=== PATIENT | male | born 1940 | race Caucasian/White ===

== ENCOUNTER 2021-01-02 11:06 | Inpatient (IN) | payer MEDICARE, OTHER ==
--- NOTE | 2021-01-02 11:47 | ED ---
General Adult HPI - General Chief complaint: GI Bleed Stated complaint: GI Bleed, transfer from [place] Time Seen by Provider: 01/02/21 11:10 Source: patient, EMS, RN notes reviewed, old records reviewed Limitations: no limitations - History of Present Illness Initial comments: This is an 80-year-old male who was transferred to us from [facility]. They were concerned because the patient had black stools that were guaiac positive. Patient also according to the staff there looked pale and was somewhat tachycardic just over 100 beats a minute. Pressure was stable. Patient's hemoglobin was 11.9 and they gave the patient 1 unit of packed red blood cells. I went in the room to interview the patient he states he had episode of black stool yesterday and currently has no complaints per patient denies abdominal pain per patient denies shortness of breath or difficulty breathing. Patient has lightheadedness or dizziness. - Related Data Home Medications Medication Instructions Recorded Confirmed Albuterol Inhaler (Mhu) [Ventolin 2 puff INHALATION RT-Q4H PRN 11/28/15 11/28/15 Hfa Inhaler (Mhu)] Aspirin EC [Ecotrin] 325 mg PO QAM 11/28/15 11/28/15 Insulin Detemir [Levemir Flextouch 17 units SQ HS 11/28/15 11/28/15 Pen] Multivitamins, Thera [Multivitamin 1 tab PO DAILY 11/28/15 11/28/15 (formulary)] Nortriptyline HCl [Pamelor] 75 mg PO HS 11/28/15 11/28/15 Potassium Chloride ER [K-Dur 20] 20 mg PO DAILY@1200 11/28/15 11/28/15 Pravastatin Sodium [Pravachol] 40 mg PO HS 11/28/15 11/28/15 Tamsulosin HCl [Flomax] 0.4 mg PO HS 11/28/15 11/28/15 Vitamin B Complex 1 cap PO QAM 11/28/15 11/28/15 Previous Rx's Medication Instructions Recorded Amoxic-Pot Clav 875-125Mg 1 tab PO Q12HR #14 tablet 12/12/15 [Augmentin 875-125] Bicalutamide [Casodex] 50 mg PO DAILY@1200 tab 12/12/15 Budesonide-Formot 160-4.5 Mcg 2 puff INHALATION BID #1 inhaler 12/12/15 [Symbicort 160-4.5 Mcg Inhaler] Folic Acid 1 mg PO DAILY@1200 tab 12/12/15 INSULIN LISPRO (HumaLOG) [humaLOG] 0 unit SQ ACHS #1 vial 12/12/15 Insulin Detemir (Levemir) [Levemir] 10 unit SQ HS vial 12/12/15 Ipratropium-Albuterol Nebulize 3 ml IH RT-TID ampul.neb 12/12/15 [Duoneb 0.5 mg-3 mg/3 ml Soln] Melatonin 5 mg PO HS PRN #1 tablet 12/12/15 Metoprolol Tartrate [Lopressor] 25 mg PO BID tab 12/12/15 Multivitamins, Thera [Multivitamin 1 each PO DAILY@1200 tab 12/12/15 (formulary)] Pantoprazole [Protonix] 40 mg PO BID-W/MEALS tablet. 12/12/15 Pravastatin Sodium [Pravachol] 40 mg PO HS tab 12/12/15 Thiamine [Vitamin B-1] 100 mg PO DAILY@1200 tab 12/12/15 traMADol HCL [Ultram] 50 mg PO Q6HR PRN #20 tab 12/12/15 Allergies Allergy/AdvReac Type Severity Reaction Status Date / Time No Known Allergies Allergy Verified 01/02/21 11:17 Review of Systems ROS Statement: Those systems with pertinent positive or pertinent negative responses have been documented in the HPI. ROS Other: All systems not noted in ROS Statement are negative. Past Medical History Past Medical History: Coronary Artery Disease (CAD), Cancer, Chest Pain / Angina, COPD, Diabetes Mellitus, GERD/Reflux, Hyperlipidemia, Hypertension, Pneumonia Additional Past Medical History / Comment(s): came from [facility]- (rectal bleeding) and uti. kidney stone in past,constipation, arthritis in back, anemia,prostate cancer, hands shake at times, head inj/brain bleed 2016-no sx was needed. 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 Patient is nontoxic and well- hydrated and is in no acute distress. ENT: Neck is soft and supple. No significant lymphadenopathy is noted. Oropharynx is clear. Moist mucous membranes. Neck has full range of motion without eliciting any pain. EYES: The sclera were anicteric and conjunctiva were pink and moist. Extraocular movements were intact and pupils were equal round and reactive to light. Eyelids were unremarkable. PULMONARY: Unlabored respirations. Good breath sounds bilaterally. No audible rales rhonchi or wheezing was noted. CARDIOVASCULAR: There is a regular rate and rhythm without any murmurs gallops or rubs. ABDOMEN: Soft and nontender with normal bowel sounds. SKIN: Skin is clear with no lesions or rashes and otherwise unremarkable. NEUROLOGIC: Patient is alert and oriented x3. Cranial nerves II through XII are grossly intact. Motor and sensory are also intact. Normal speech, volume and content. Symmetrical smile. MUSCULOSKELETAL: Normal extremities with adequate strength and full range of motion. No lower extremity swelling or edema. No calf tenderness. LYMPHATICS: No significant lymphadenopathy is noted PSYCHIATRIC: Normal psychiatric evaluation. Limitations: no limitations Course Vital Signs 01/02/21 11:11 Temperature 98.5 F Pulse Rate 105 H Respiratory 18 Rate Blood Pressure 126/84 O2 Sat by Pulse 99 Oximetry Disposition Clinical Impression: GI bleed Disposition: ADMITTED IP TO THIS HOSP Referrals: Rolando Zafar MD [Primary Care Provider] - 1-2 days Time of Disposition: 11:47
[2021-01-02] MEDS ORDERED: SODIUM CHLORIDE 0.9% 1,000 ML IV ONE (12:01)
[2021-01-02 12:10] LABS: Basophils # (A) 0.1 k/uL (0-0.2); Basophils % (A) 0 %; Eosinophils # (A) 0.3 k/uL (0-0.7); Eosinophils % (A) 2 %; HCT 39.9 % (39.0-53.0); HGB 12.9 gm/dL (13.0-17.5); Lymphocytes # (A) 2.8 k/uL (1.0-4.8); Lymphocytes % (A) 19 %; MCH 29.4 pg (25.0-35.0); MCHC 32.2 g/dL (31.0-37.0); MCV 91.2 fL (80.0-100.0); Mean Platelet Volume 7.9; Monocytes # (A) 0.6 k/uL (0-1.0); Monocytes % (A) 4 %; Neutrophils # (A) 10.8 k/uL (1.3-7.7); Neutrophils % (A) 73 %; Platelet Count 273 k/uL (150-450); RBC 4.38 m/uL (4.30-5.90); RDW 13.9 % (11.5-15.5); WBC 14.7 k/uL (3.8-10.6)
--- NOTE | 2021-01-02 12:17 | XR ---
EXAMINATION TYPE: XR KUB DATE OF EXAM: 01/02/2021 Comparison: None Clinical History: 80-year-old male with diarrhea, Possible obstruction Findings: Degenerated extra convex scoliosis. Some scattered colonic air is present extending distally to the r ectum. Small bowel loops in the right side of the abdomen are borderline distended up to 3.0 cm. No e vidence for free intraperitoneal air. Impression: A few borderline dilated small bowel loops in the right side of the abdomen measuring up to 3.0 cm. C olonic air is present at this time. Findings are nonspecific and could represent a regional ileus/ent eritis or early small bowel obstruction. Follow-up as clinically indicated.
--- NOTE | 2021-01-02 17:21 | XR ---
EXAMINATION TYPE: XR chest 1V DATE OF EXAM: 01/02/2021 COMPARISON: 12/09/2015 HISTORY: 80-year-old male with coughing TECHNIQUE: Single frontal view of the chest is obtained. FINDINGS: Leftward patient rotation. Heart upper limits of normal in size. Some patchy peripheral left basilar opacity. Right lung and pleural space are clear. IMPRESSION: Limited, rotated exam. There is some patchy peripheral left basilar atelectasis versus early infiltra te.
[2021-01-02 18:05] LABS: Glucose,Whole Blood 138 mg/dL (75-99)
[2021-01-02 18:07] LABS: Appearance,Urine Clear (Clear); Bilirubin,Urine Negative (Negative); Blood,Urine Negative (Negative); Color,Urine Yellow; Glucose,Urine (UA) Negative (Negative); Ketones,Urine Negative (Negative); Leukocyte Esterase,Urine Negative (Negative); Nitrite,Urine Negative (Negative); PH, Urine 6.5 (5.0-8.0); Protein,Urine Negative (Negative); Specific Gravity,Urine 1.017 (1.001-1.035); Urobilinogen,Urine <2.0 mg/dL (<2.0)
[2021-01-02 18:11] LABS: Basophils # (A) 0.1 k/uL (0-0.2); Basophils % (A) 0 %; Eosinophils # (A) 0.6 k/uL (0-0.7); Eosinophils % (A) 5 %; HCT 35.4 % (39.0-53.0); HGB 11.7 gm/dL (13.0-17.5); Hypochromasia Moderate; Lymphocytes # (A) 2.8 k/uL (1.0-4.8); Lymphocytes % (A) 22 %; MCH 30.8 pg (25.0-35.0); MCHC 32.9 g/dL (31.0-37.0); MCV 93.6 fL (80.0-100.0); Mean Platelet Volume 7.1; Monocytes # (A) 0.5 k/uL (0-1.0); Monocytes % (A) 4 %; Neutrophils # (A) 8.1 k/uL (1.3-7.7); Neutrophils % (A) 65 %; Platelet Count 246 k/uL (150-450); RBC 3.79 m/uL (4.30-5.90); RDW 13.9 % (11.5-15.5); WBC 12.4 k/uL (3.8-10.6)
[2021-01-02] MEDS ORDERED: ALBUTEROL NEBULIZED 2.5 MG/3 ML INHALATION PRN (19:59)
[2021-01-02] MEDS ORDERED: MORPHINE SULFATE 2 MG/ML SYRINGE IVP PRN (19:59)
[2021-01-02] MEDS ORDERED: hydrALAZINE HCL 20 MG/ML 1 ML VIAL IVP PRN (20:00)
--- NOTE | 2021-01-02 20:10 | P.HPIM ---
History of Present Illness This is a pleasant 80 years old male with past medical history of coronary artery disease, status post stent, diabetes mellitus, hypertension, hyperlipidemia, prostate cancer. Patient was sent from [facility] for GI bleed. Patient woke up 3:00 this morning with diarrhea.It was liquid stool black with some fresh blood in it associated with generalized weakness and difficulty walking due to his weakness but no abdominal pain, no vomiting, no chest pain or dyspnea. He is also complaining from cough and some of phlegm No headache or weakness or numbness. Smoking, occasional alcohol, no illicit drugs. Patient no suicidal ideation. Vital signs stable, tachycardic with heart rate 100-105. WBC is elevated at 14.7 In the emergency room he was started on normal saline at 75 mL/h On reviewing the records from [facility] Elevated WBC at 17 K, and hemoglobin is 11.9, platelet normal at 302. Sodium normal At 137, normal potassium at 4.7, normal creatinine 0.8 and elevated glucose at 259 Lactic acid elevated at 2.5, troponin negative less than 0.02. Occult blood in stool was positive. Liver enzymes AST and ALT were normal at 2119 respectively. Bilirubin is normal at 0.6 and normal INR at 1.04. Review of Systems CONSTITUTIONAL: No fever, no malaise, no fatigue. HEENT: No recent visual problems or hearing problems. Denied any sore throat. CARDIOVASCULAR: No orthopnea, PND, no palpitations, no syncope. PULMONARY: No shortness of breath, no hemoptysis. GASTROINTESTINAL: no nausea, no vomiting, no abdominal pain. Normoactive bowel sounds. NEUROLOGICAL: No headaches, no weakness, no numbness. HEMATOLOGICAL: Denies any bleeding or petechiae. GENITOURINARY: Denies any burning micturition, frequency, or urgency. MUSCULOSKELETAL/RHEUMATOLOGICAL: Denies any joint pain, swelling, or any muscle pain. ENDOCRINE: Denies any polyuria or polydipsia. Past Medical History Past Medical History: Coronary Artery Disease (CAD), Cancer, Chest Pain / Angina, COPD, Diabetes Mellitus, GERD/Reflux, Hyperlipidemia, Hypertension, Pneumonia Additional Past Medical History / Comment(s): came from [facility]- (rectal bleeding) and uti. kidney stone in past,constipation, arthritis in back, anemia,prostate cancer, hands shake at times, head inj/brain bleed 2016-no sx was needed. 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 Past Anesthesia/Blood Transfusion Reactions: No Reported Reaction Date of Last Stent Placement:: unk Past Psychological History: Depression Past Alcohol Use History: None Reported Past Drug Use History: None Reported - Past Family History Father Family Medical History: Cancer Mother Family Medical History: Myocardial Infarction ([place]) Medications and Allergies Home Medications Medication Instructions Recorded Confirmed Type Tamsulosin HCl [Flomax] 0.4 mg PO DAILY 11/28/15 01/02/21 History Albuterol Nebulized [Ventolin 2.5 mg INHALATION RT-Q4H PRN 01/02/21 01/02/21 History Nebulized] Aspirin EC [Ecotrin Low Dose] 81 mg PO HS 01/02/21 01/02/21 History Brimonidine Tartrate/Timolol 1 drop LEFT EYE BID 01/02/21 01/02/21 History [Combigan 0.2%-0.5% Eye Drops] DULoxetine HCL [Cymbalta] 60 mg PO DAILY 01/02/21 01/02/21 History Docusate [Colace] 100 mg PO DAILY PRN 01/02/21 01/02/21 History Insulin Glargine,Hum.rec.anlog 10 unit SQ DAILY 01/02/21 01/02/21 History [Lantus Solostar Pen] Insulin Regular, Human [NovoLIN R] See Protocol SQ AC-TID PRN 01/02/21 01/02/21 History Losartan [Cozaar] 50 mg PO DAILY 01/02/21 01/02/21 History Meloxicam [Mobic] 15 mg PO DAILY 01/02/21 01/02/21 History Metoprolol Tartrate [Lopressor] 25 mg PO DAILY 01/02/21 01/02/21 History Multivitamins, Thera [Multivitamin 1 tab PO HS 01/02/21 01/02/21 History (formulary)] Oxybutynin Chloride [Oxybutynin 10 mg PO BID 01/02/21 01/02/21 History Chloride ER] Pravastatin Sodium [Pravachol] 40 mg PO DAILY 01/02/21 01/02/21 History Allergies Allergy/AdvReac Type Severity Reaction Status Date / Time No Known Allergies Allergy Verified 01/02/21 12:48 Physical Exam Vitals: Vital Signs Temp Pulse Resp BP Pulse Ox 01/02/21 13:59 100 18 119/79 96 01/02/21 11:11 98.5 F 105 H 18 126/84 99 Intake and Output 01/01/21 01/02/21 01/02/21 22:59 06:59 14:59 Other: Weight 88.451 kg -GENERAL: The patient is alert and oriented x3, not in any acute distress. Obese HEENT: Pupils are round and equally reacting to light. EOMI. No scleral icterus. No conjunctival pallor. Normocephalic, atraumatic. No pharyngeal erythema. No thyromegaly. CARDIOVASCULAR: S1 and S2 present. No murmurs, rubs, or gallops. PULMONARY: Chest is clear to auscultation, no wheezing or crackles. ABDOMEN: Soft, nontender, nondistended, normoactive bowel sounds. No palpable organomegaly. MUSCULOSKELETAL: No joint swelling or deformity. EXTREMITIES: No cyanosis, clubbing, or pedal edema. NEUROLOGICAL: Gross neurological examination did not reveal any focal deficits. SKIN: No rashes. No petechiae Results CBC & Chem 7: 01/02/21 17:51 Labs: Abnormal Lab Results - Last 24 Hours (Table) 01/02/21 Range/Units 12:01 WBC 14.7 H (3.8-10.6) k/uL Hgb 12.9 L (13.0-17.5) gm/dL Neutrophils # 10.8 H (1.3-7.7) k/uL Assessment and Plan Assessment: Acute bleeding per rectum Diarrhea with no abdominal pain Mild anemia Possible enteritis versus bowel obstruction Possible left lower lobe pneumonia Possible acute urinary tract infection Diabetes mellitus Hypertension Hyperlipidemia Prostatic cancer Plan: this is a pleasant 80 years old male was sent from [facility] for possible GI bleed and UTI We'll do anemia workup GI team consult follow-up Check pro-calcitonin and start Augmentin empirically Check hemoglobin A1c Order chest x-ray Recheck urinalysis and urine culture Labs and medication were reviewed.. Continue same treatment. Continue with symptomatic treatment. Resume home medication. Monitor lytes and vitals. DVT and GI prophylaxis. Further recommendations depends on the clinical course of the patient DVT prophylaxis: no Subcutaneous heparin for possible GI bleed GI Prophylaxis: Ppi PT/OT: Prognosis is guarded Addendum: Chest x-ray came back showing atelectasis versus early left lower lobe infiltrate KUB came back showing ileitis/enteritis versus bowel obstruction and no free air Consults surgery service Continue with bowel rest, D5 normal saline at 75 mL/h, Zosyn, morphine as needed and surgical team consult Order blood culture and sputum culture. Discussed with staff
[2021-01-02] MEDS ORDERED: cloNIDine 0.1 MG/24HR PATCH TRANSDERM SCH (20:30)
[2021-01-02 20:38] LABS: Glucose,Whole Blood 199 mg/dL (75-99)
[2021-01-02 21:00] LABS: African American GFR (CKD) >90 (>60 ml/min/1.73 sqM); Anion Gap 10 mmol/L; Blood Urea Nitrogen 22 mg/dL (9-20); Calcium 9.1 mg/dL (8.4-10.2); Carbon Dioxide 21 mmol/L (22-30); Chloride 105 mmol/L (98-107); Glucose 194 mg/dL (74-99); Non-African American GFR(CKD) 87 (>60 ml/min/1.73 sqM); Potassium 4.2 mmol/L (3.5-5.1); Sodium 136 mmol/L (137-145)
[2021-01-02] MEDS ORDERED: AMOXIC-POT CLAV 875-125MG 1 EACH TAB PO SCH (21:00)
[2021-01-02] MEDS: INSULIN ASPART (NovoLOG) 100 UNIT/ML VIAL SQ SCH (21:55)
[2021-01-02] MEDS: PANTOPRAZOLE 40 MG/10 ML VIAL IVP SCH (21:58)
[2021-01-02] MEDS: DEXTROSE 5%-0.9% NACL 1,000 ML IV SCH (21:59)
[2021-01-02] MEDS: PIPERACILLIN-TAZOBACTAM 3.375 GM in SODIUM CHLORIDE 0.9% 100 ML IVPB SCH (21:59)
[2021-01-02] MEDS ORDERED: SODIUM CHLORIDE 0.9% 500 ML 500 ML IV ONE (22:33)
[2021-01-03] MEDS: PIPERACILLIN-TAZOBACTAM 3.375 GM in SODIUM CHLORIDE 0.9% 100 ML IVPB SCH ×3 (04:27→21:00)
[2021-01-03 06:54] LABS: Glucose,Whole Blood 150 mg/dL (75-99)
[2021-01-03] MEDS: PANTOPRAZOLE 40 MG/10 ML VIAL IVP SCH ×2 (07:41→21:02)
[2021-01-03] MEDS: INSULIN ASPART (NovoLOG) 100 UNIT/ML VIAL SQ SCH ×4 (07:41→21:01)
[2021-01-03] MEDS: IOPAMIDOL CONTRAST (ORAL USE) VIAL PO PRN ×2 (09:21→10:24)
[2021-01-03 10:56] LABS: Basophils # (A) 0.06 X 10*3/uL (0.00-0.10); Basophils % (A) 0.5 %; Eosinophils # (A) 0.96 X 10*3/uL (0.04-0.35); Eosinophils % (A) 8.2 %; HCT 33.1 % (39.6-50.0); HGB 10.5 g/dL (13.0-17.0); Lymphocytes # (A) 3.88 X 10*3/uL (0.90-5.00); Lymphocytes % (A) 33.3 %; MCH 28.7 pg (27.0-32.0); MCHC 31.7 g/dL (32.0-37.0); MCV 90.4 fL (80.0-97.0); Mean Platelet Volume 10.7 fL (9.5-12.2); Neutrophils # (A) 6.01 X 10*3/uL (1.80-7.70); Neutrophils % (A) 51.7 %; Platelet Count 233 X 10*3/uL (140-440); RBC 3.66 X 10*6/uL (4.40-5.60); RDW 13.6 % (11.5-14.5); WBC 11.64 X 10*3/uL (4.50-10.00)
--- NOTE | 2021-01-03 11:29 | CT ---
EXAMINATION TYPE: CT abdomen pelvis w con DATE OF EXAM: 01/03/2021 COMPARISON: 727 HISTORY: Generalized pain. CT DLP: 1440.1 mGycm CONTRAST: CT scan of the abdomen and pelvis is performed with Oral Contrast and with IV Contrast, patient injec brian with 100 mL of Isovue 370. FINDINGS: LUNG BASES-: No visible nodule. No infiltrate. LIVER/GB: No calcified gallstones. Mild hepatic steatosis. No space occupying hepatic lesion. Bili robert tree is of normal caliber. PANCREAS: No inflammation. No distinct mass. SPLEEN: No splenic enlargement. No lesion seen. ADRENALS: No nodule. No thickening. KIDNEYS/BLADDER: No hydronephrosis. No nephrolithiasis. No distinct renal mass. Urinary bladder g rossly unremarkable. BOWEL: Normal appendix. Normal bowel caliber. No inflammation. GENITAL ORGANS: No gross abnormality. LYMPH NODES: No greater than 1cm abdominal or pelvic lymph nodes are appreciated. AORTA: No significant abnormality. OSSEOUS STRUCTURES: No significant abnormality is seen. OTHER: Fat-containing umbilical hernia. IMPRESSION: 1. No evidence for bowel obstruction or inflammatory process.
[2021-01-03 11:42] LABS: Glucose,Whole Blood 168 mg/dL (75-99)
[2021-01-03 12:56] LABS: African American GFR (CKD) 93.2 (60.0-200.0); Albumin 3.9 g/dL (3.80-4.90); Albumin/Globulin Ratio 2.29 (1.60-3.17); Anion Gap 9.9 mmol/L (4.00-12.00); BUN/Creat Ratio 21.11 Ratio (12.00-20.00); Bilirubin, Conjugated 0.2 mg/dL (0.20-0.40); Bilirubin,Unconjugated 0.3 mg/dL; Calcium 8.5 mg/dL (8.7-10.3); Carbon Dioxide 21.1 mmol/L (21.6-31.8); Globulin 1.7 g/dL (1.6-3.3); Magnesium 1.9 mg/dL (1.5-2.4); Non-African American GFR(CKD) 80.4 (60.0-200.0); Potassium 3.9 mmol/L (3.5-5.5); Total Bilirubin 0.5 mg/dL (0.2-1.2); Total Protein 5.6 g/dL (6.2-8.2)
--- NOTE | 2021-01-03 13:02 | P.GSCN ---
History of Present Illness Consult date: 01/03/21 History of present illness: CHIEF COMPLAINT: GI bleed HISTORY OF PRESENT ILLNESS: This is a 80-year-old male with a known history of a left colon mass status post left colectomy in 2016. 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 Patient also has a history of coronary artery disease with cardiac stents, diabetes mellitus, COPD and prostate cancer. Surgical history also includes appendectomy. Patient was a transfer from [facility] due to GI bleed. Patient had been having black stools and guaiac was positive. According to chart patient had had been looking pale and somewhat tachycardic with a heart rate of 100. Hemoglobin was 11.9 he did receive a unit of blood at [facility]. Patient is still having black stools. They black with a mix of bright red per nursing staff. Patient denies any abdominal pain. He is also being seen by GI service and they're planning endoscopies tomorrow. Patient has been taking Mobic. He had a KUB U x-ray that had shown a few borderline dilated small bowel loops in the right side of the abdomen measuring up to 3 cm. Colonic air is present at this time. There is no evidence for free intraperitoneal air. Findings are nonspecific and could represent ileus, enteritis or early small bowel obstruction. Computed tomography scan abdomen and pelvis completed showing no evidence for bowel obstruction or inflammatory process. Patient is been started on clear liquid diet. He denies any nausea or vomiting. Denies any fever chills or sweats. Surgical service was consult in for possible small bowel obstruction PAST MEDICAL HISTORY: See list. PAST SURGICAL HISTORY: See list. MEDICATIONS: See list. ALLERGIES: See list. SOCIAL HISTORY: No illicit drug use. REVIEW OF SYSTEMS: CONSTITUTIONAL: Denies fever or chills. HEENT: Denies blurred vision, vision changes, or eye pain. Denies hemoptysis CARDIOVASCULAR: Denies chest pain or pressure. RESPIRATORY: No shortness of breath. GASTROINTESTINAL: See HPI for pertinent findings HEMATOLOGIC: Denies bleeding disorders. GENITOURINARY: Denies any blood in urine or increased urinary frequency. SKIN: Denies pruitis. Denies rash. PHYSICAL EXAM: VITAL SIGNS: Reviewed GENERAL: Well-developed in no acute distress. HEENT: No sclera icterus. Extraocular movements grossly intact. Moist buccal mucosa. Head is atraumatic, normocephalic. No nasal drainage. ABDOMEN: Soft. Nondistended. Nontender NEUROLOGIC: Alert and oriented. Cranial nerves II through XII grossly intact. LABORATORY DATA: WBC 12.4 down to 11.64 hemoglobin 11.7 down to 10.5 Lactic 2.8 and 1.2 creatinine 0.74 sodium 140 potassium 3.9 magnesium 1.9 UA negative IMAGING: Computed tomography scan abdomen and pelvis completed showing no evidence for bowel obstruction or inflammatory process. ASSESSMENT: 1. Acute GI bleed with daily NSAID use. 2. Possible ileus, enteritis or early small bowel obstruction on x-ray. This has been ruled out. 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 Signing provider agrees with the documented findings, assessment, and plan of care. Past Medical History Past Medical History: Coronary Artery Disease (CAD), Cancer, Chest Pain / Angina, COPD, Diabetes Mellitus, GERD/Reflux, Hyperlipidemia, Hypertension, Pneumonia Additional Past Medical History / Comment(s): came from [facility]- (rectal bleeding) and uti. kidney stone in past,constipation, arthritis in back, anemia,prostate cancer, hands shake at times, head inj/brain bleed 2016-no sx was needed. 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 Past Anesthesia/Blood Transfusion Reactions: No Reported Reaction Date of Last Stent Placement:: unk Past Psychological History: Depression Past Alcohol Use History: None Reported Past Drug Use History: None Reported - Past Family History Father Family Medical History: Cancer Mother Family Medical History: Myocardial Infarction ([place]) Medications and Allergies Home Medications Medication Instructions Recorded Confirmed Type Tamsulosin HCl [Flomax] 0.4 mg PO DAILY 11/28/15 01/02/21 History Albuterol Nebulized [Ventolin 2.5 mg INHALATION RT-Q4H PRN 01/02/21 01/02/21 History Nebulized] Aspirin EC [Ecotrin Low Dose] 81 mg PO HS 01/02/21 01/02/21 History Brimonidine Tartrate/Timolol 1 drop LEFT EYE BID 01/02/21 01/02/21 History [Combigan 0.2%-0.5% Eye Drops] DULoxetine HCL [Cymbalta] 60 mg PO DAILY 01/02/21 01/02/21 History Docusate [Colace] 100 mg PO DAILY PRN 01/02/21 01/02/21 History Insulin Glargine,Hum.rec.anlog 10 unit SQ DAILY 01/02/21 01/02/21 History [Lantus Solostar Pen] Insulin Regular, Human [NovoLIN R] See Protocol SQ AC-TID PRN 01/02/21 01/02/21 History Losartan [Cozaar] 50 mg PO DAILY 01/02/21 01/02/21 History Meloxicam [Mobic] 15 mg PO DAILY 01/02/21 01/02/21 History Metoprolol Tartrate [Lopressor] 25 mg PO DAILY 01/02/21 01/02/21 History Multivitamins, Thera [Multivitamin 1 tab PO HS 01/02/21 01/02/21 History (formulary)] Oxybutynin Chloride [Oxybutynin 10 mg PO BID 01/02/21 01/02/21 History Chloride ER] Pravastatin Sodium [Pravachol] 40 mg PO DAILY 01/02/21 01/02/21 History Allergies Allergy/AdvReac Type Severity Reaction Status Date / Time No Known Allergies Allergy Verified 01/02/21 12:48 Surgical - Exam Vital Signs Temp Pulse Resp BP Pulse Ox 98.5 F 105 H 18 126/84 99 01/02/21 11:11 01/02/21 11:11 01/02/21 11:11 01/02/21 11:11 01/02/21 11:11 Results - Labs 01/03/21 07:21 01/03/21 07:21 Abnormal Lab Results - Last 24 Hours (Table) 01/02/21 01/02/21 01/02/21 Range/Units 17:51 18:03 20:20 WBC 12.4 H (3.8-10.6) k/uL RBC 3.79 L (4.30-5.90) m/uL Hgb 11.7 L (13.0-17.5) gm/dL Hct 35.4 L (39.0-53.0) % MCHC (32.0-37.0) g/dL Neutrophils # 8.1 H (1.3-7.7) k/uL Eosinophils # (0.04-0.35) X 10*3/uL Sodium (137-145) mmol/L Carbon Dioxide (22-30) mmol/L BUN (9-20) mg/dL BUN/Creatinine Ratio (12.00-20.00) Ratio Glucose (74-99) mg/dL POC Glucose (mg/dL) 138 H (75-99) mg/dL Plasma Lactic Acid Sharif 2.8 H* (0.7-2.0) mmol/L Calcium (8.7-10.3) mg/dL Total Protein (6.2-8.2) g/dL 01/02/21 01/02/21 01/03/21 Range/Units 20:20 20:37 06:52 WBC (3.8-10.6) k/uL RBC (4.30-5.90) m/uL Hgb (13.0-17.5) gm/dL Hct (39.0-53.0) % MCHC (32.0-37.0) g/dL Neutrophils # (1.3-7.7) k/uL Eosinophils # (0.04-0.35) X 10*3/uL Sodium 136 L (137-145) mmol/L Carbon Dioxide 21 L (22-30) mmol/L BUN 22 H (9-20) mg/dL BUN/Creatinine Ratio (12.00-20.00) Ratio Glucose 194 H (74-99) mg/dL POC Glucose (mg/dL) 199 H 150 H (75-99) mg/dL Plasma Lactic Acid Sharif (0.7-2.0) mmol/L Calcium (8.7-10.3) mg/dL Total Protein (6.2-8.2) g/dL 01/03/21 01/03/21 01/03/21 Range/Units 07:21 07:21 11:41 WBC 11.64 H (3.8-10.6) k/uL RBC 3.66 L (4.30-5.90) m/uL Hgb 10.5 L (13.0-17.5) gm/dL Hct 33.1 L (39.0-53.0) % MCHC 31.7 L (32.0-37.0) g/dL Neutrophils # (1.3-7.7) k/uL Eosinophils # 0.96 H (0.04-0.35) X 10*3/uL Sodium (137-145) mmol/L Carbon Dioxide 21.1 L (22-30) mmol/L BUN (9-20) mg/dL BUN/Creatinine Ratio 21.11 H (12.00-20.00) Ratio Glucose 180 H (74-99) mg/dL POC Glucose (mg/dL) 168 H (75-99) mg/dL Plasma Lactic Acid Sharif (0.7-2.0) mmol/L Calcium 8.5 L (8.7-10.3) mg/dL Total Protein 5.6 L (6.2-8.2) g/dL Diabetes panel 01/02/21 01/03/21 Range/Units 20:20 07:21 Sodium 136 L 140 (137-145) mmol/L Potassium 4.2 3.9 (3.5-5.1) mmol/L Chloride 105 109 (98-107) mmol/L Carbon Dioxide 21 L 21.1 L (22-30) mmol/L BUN 22 H 19.0 (9-20) mg/dL Creatinine 0.74 0.9 (0.66-1.25) mg/dL Glucose 194 H 180 H (74-99) mg/dL Calcium 9.1 8.5 L (8.4-10.2) mg/dL AST 20 (14-35) U/L ALT 20 (10-49) U/L Alkaline Phosphatase 57 (41-126) U/L Total Protein 5.6 L (6.2-8.2) g/dL Albumin 3.90 (3.80-4.90) g/dL Calcium panel 01/02/21 01/03/21 Range/Units 20:20 07:21 Calcium 9.1 8.5 L (8.4-10.2) mg/dL Albumin 3.90 (3.80-4.90) g/dL Pituitary panel 01/02/21 01/03/21 Range/Units 20:20 07:21 Sodium 136 L 140 (137-145) mmol/L Potassium 4.2 3.9 (3.5-5.1) mmol/L Chloride 105 109 (98-107) mmol/L Carbon Dioxide 21 L 21.1 L (22-30) mmol/L BUN 22 H 19.0 (9-20) mg/dL Creatinine 0.74 0.9 (0.66-1.25) mg/dL Glucose 194 H 180 H (74-99) mg/dL Calcium 9.1 8.5 L (8.4-10.2) mg/dL Adrenal panel 01/02/21 01/03/21 Range/Units 20:20 07:21 Sodium 136 L 140 (137-145) mmol/L Potassium 4.2 3.9 (3.5-5.1) mmol/L Chloride 105 109 (98-107) mmol/L Carbon Dioxide 21 L 21.1 L (22-30) mmol/L BUN 22 H 19.0 (9-20) mg/dL Creatinine 0.74 0.9 (0.66-1.25) mg/dL Glucose 194 H 180 H (74-99) mg/dL Calcium 9.1 8.5 L (8.4-10.2) mg/dL Total Bilirubin 0.5 (0.2-1.2) mg/dL AST 20 (14-35) U/L ALT 20 (10-49) U/L Alkaline Phosphatase 57 (41-126) U/L Total Protein 5.6 L (6.2-8.2) g/dL Albumin 3.90 (3.80-4.90) g/dL
--- NOTE | 2021-01-03 13:22 | P.CONS ---
History of Present Illness - Reason for Consult Consult date: 01/03/21 GI bleed Requesting physician: Socrates E Sheet - Chief Complaint black stool - History of Present Illness This is an 80-year-old male with a past medical history of coronary artery disease status post stent, diabetes mellitus, hypertension, hyperlipidemia prostate cancer and previous sigmoid colon mass status post colectomy in 2016 who presented to the emergency department with complaints of blood in his stool. He was initially seen at [facility] and transferred here for further evaluation for GI bleed. Patient woke up at 3:00 in the morning yesterday with black stool, followed by another episode of black stool with red blood in the toilet. He denies taking any anticoagulation, he does take a low-dose 81 mg aspirin daily as well as meloxicam 15 mg daily. He denies any previous history of peptic ulcer disease, but does state that he has daily heartburn and uses Tums on a daily basis. Admitting hemoglobin 11.7, today's labs WBC 11, hemoglobin 10.5, hematocrit 33, platelet count 233,000, total bilirubin 0.5, alkaline phosphatase 57, AST 20, ALT 20. He denies any abdominal pain, nausea, or vomiting. Denies any cramping with his bowel movements. Last colonoscopy was in 2016 prior to colectomy. The patient had an abdominal x-ray that showed a few borderline dilated small bowel loops in the right side of the abdomen measuring up to 3.0 cm. Colonic air is present at this time. Findings are nonspecific and could represent a regional ileus/enteritis or early small bowel obstruction. Follow-up as clinically indicated. Review of Systems REVIEW OF SYSTEMS: CARDIOPULMONARY: No chest pain or shortness of breath. Gastrointestinal: No abdominal pain. No nausea or vomiting. No hematemesis, coffee-ground emesis. Black stool, bright red blood in stool. Frequent heartburn. GENITOURINARY: No dysuria or hematuria. MUSCULOSKELETAL: Reports normal range of motion., Joint pain. SKIN: No rashes. No jaundice. ENDOCRINE: No chills, fevers. No excessive weight gain or loss. No polydipsia or polyuria. PSYCHIATRIC: Unremarkable. NEUROLOGY: No change in mental status. Denies dizziness, headache. ENT: Vision unremarkable. CONSTITUTIONAL: No recent weight loss. No fever, chills, night sweats. Past Medical History Past Medical History: Coronary Artery Disease (CAD), Cancer, Chest Pain / Angina, COPD, Diabetes Mellitus, GERD/Reflux, Hyperlipidemia, Hypertension, Pneumonia Additional Past Medical History / Comment(s): came from [facility]- (rectal bleeding) and uti. kidney stone in past,constipation, arthritis in back, anemia,prostate cancer, hands shake at times, head inj/brain bleed 2016-no sx was needed. History of Any Multi-Drug Resistant Organisms: None Reported Past Surgical History: Appendectomy, Heart Catheterization With Stent Additional Past Surgical History / Comment(s): orif rt ankle(metal inpalce), era cataracts, 2 cardiac stents to prox vp product Past Anesthesia/Blood Transfusion Reactions: No Reported Reaction Date of Last Stent Placement:: unk Past Psychological History: Depression Past Alcohol Use History: None Reported Past Drug Use History: None Reported - Past Family History Father Family Medical History: Cancer Mother Family Medical History: Myocardial Infarction (OR) Medications and Allergies Home Medications Medication Instructions Recorded Confirmed Type Tamsulosin HCl [Flomax] 0.4 mg PO DAILY 11/28/15 01/02/21 History Albuterol Nebulized [Ventolin 2.5 mg INHALATION RT-Q4H PRN 01/02/21 01/02/21 History Nebulized] Aspirin EC [Ecotrin Low Dose] 81 mg PO HS 01/02/21 01/02/21 History Brimonidine Tartrate/Timolol 1 drop LEFT EYE BID 01/02/21 01/02/21 History [Combigan 0.2%-0.5% Eye Drops] DULoxetine HCL [Cymbalta] 60 mg PO DAILY 01/02/21 01/02/21 History Docusate [Colace] 100 mg PO DAILY PRN 01/02/21 01/02/21 History Insulin Glargine,Hum.rec.anlog 10 unit SQ DAILY 01/02/21 01/02/21 History [Lantus Solostar Pen] Insulin Regular, Human [NovoLIN R] See Protocol SQ AC-TID PRN 01/02/21 01/02/21 History Losartan [Cozaar] 50 mg PO DAILY 01/02/21 01/02/21 History Meloxicam [Mobic] 15 mg PO DAILY 01/02/21 01/02/21 History Metoprolol Tartrate [Lopressor] 25 mg PO DAILY 01/02/21 01/02/21 History Multivitamins, Thera [Multivitamin 1 tab PO HS 01/02/21 01/02/21 History (formulary)] Oxybutynin Chloride [Oxybutynin 10 mg PO BID 01/02/21 01/02/21 History Chloride ER] Pravastatin Sodium [Pravachol] 40 mg PO DAILY 01/02/21 01/02/21 History Allergies Allergy/AdvReac Type Severity Reaction Status Date / Time No Known Allergies Allergy Verified 01/02/21 12:48 Physical Exam Vitals: Vital Signs Temp Pulse Pulse Resp BP BP Pulse Ox 01/03/21 08:00 98.5 F 88 16 155/77 98 01/03/21 01:24 98.7 F 54 L 18 157/83 96 01/02/21 22:33 136/62 01/02/21 20:00 100 18 01/02/21 19:57 98.1 F 100 18 171/77 92 L 01/02/21 17:55 100 18 125/80 95 01/02/21 13:59 100 18 119/79 96 01/02/21 11:11 98.5 F 105 H 18 126/84 99 Intake and Output 01/02/21 01/03/21 01/03/21 22:59 06:59 14:59 Intake Total 900 Balance 900 Intake: Intake, IV Titration 900 Amount Dextrose 5%-0.9% NaCl 1, 300 000 ml @ 75 mls/hr IV . [id number] [facility] Rx#:[id number] Piperacillin-Tazobactam 3 100 .375 gm In Sodium Chloride 0.9% 100 ml @ 25 mls/hr IVPB Q8H [facility] Rx#: [id number] Sodium Chloride 0.9% 500 500 ml 500 ml @ 999 mls/hr IV .Q31M [facility] Rx#:[id number] Other: # Voids 1 3 General appearance: The patient is alert, oriented, appears in no acute distress. HET: Head is normocephalic and atraumatic. Conjunctiva pink. Sclera anicteric. Neck: Supple without lymphadenopathy. Trachea midline. Heart: S1 S2. Regular rate and rhythm. Lungs: Clear to auscultation. Abdomen: Soft, nontender, nondistended with bowel sounds. No guarding or rigidity. Skin: No rashes. No jaundice. Extremities: Normal skin color and turgor. No pedal edema. Neurological: No focal deficits. Alert and oriented 3.. Results CBC & Chem 7: 01/03/21 07:21 01/03/21 07:21 Labs: Abnormal Lab Results - Last 24 Hours (Table) 01/02/21 01/02/21 01/02/21 Range/Units 12:01 17:51 18:03 WBC 14.7 H 12.4 H (3.8-10.6) k/uL RBC 3.79 L (4.30-5.90) m/uL Hgb 12.9 L 11.7 L (13.0-17.5) gm/dL Hct 35.4 L (39.0-53.0) % Neutrophils # 10.8 H 8.1 H (1.3-7.7) k/uL Sodium (137-145) mmol/L Carbon Dioxide (22-30) mmol/L BUN (9-20) mg/dL Glucose (74-99) mg/dL POC Glucose (mg/dL) 138 H (75-99) mg/dL Plasma Lactic Acid Sharif (0.7-2.0) mmol/L 01/02/21 01/02/21 01/02/21 Range/Units 20:20 20:20 20:37 WBC (3.8-10.6) k/uL RBC (4.30-5.90) m/uL Hgb (13.0-17.5) gm/dL Hct (39.0-53.0) % Neutrophils # (1.3-7.7) k/uL Sodium 136 L (137-145) mmol/L Carbon Dioxide 21 L (22-30) mmol/L BUN 22 H (9-20) mg/dL Glucose 194 H (74-99) mg/dL POC Glucose (mg/dL) 199 H (75-99) mg/dL Plasma Lactic Acid Sharif 2.8 H* (0.7-2.0) mmol/L 01/03/21 Range/Units 06:52 WBC (3.8-10.6) k/uL RBC (4.30-5.90) m/uL Hgb (13.0-17.5) gm/dL Hct (39.0-53.0) % Neutrophils # (1.3-7.7) k/uL Sodium (137-145) mmol/L Carbon Dioxide (22-30) mmol/L BUN (9-20) mg/dL Glucose (74-99) mg/dL POC Glucose (mg/dL) 150 H (75-99) mg/dL Plasma Lactic Acid Sharif (0.7-2.0) mmol/L Abdominal x-ray: report reviewed (The patient had an abdominal x-ray that showed a few borderline dilated small bowel loops in the right side of the abdomen measuring up to 3.0 cm. Colonic air is present at this time. Findings are nonspecific and could represent a regional ileus/enteritis or early small bowel obstruction. Follow-) CT scan - abdomen: report reviewed (No evidence for bowel obstruction or inflammatory process.) Assessment and Plan (1) GI bleed Narrative/Plan: 80-year-old white male who was a transfer from [facility] for GI bleed. He presented to the emergency department with complaints of black stool 1 day. Daughter is at the bedside and states his stool was black but there was also bright red blood in the toilet as well. The patient has a history of a left sigmoid mass and is status post colectomy in 2016. Patient denies any anticoagulation, however does take a daily low-dose aspirin and meloxicam 15 mg daily. On admission he had an x-ray of the abdomen showing possible small bowel obstruction, general surgery is on consult. He had a repeat CT of the abdomen showing no obstruction or no inflammatory process. Patient does complain of frequent heartburn and takes Tums daily. He's had no prior EGD, last colonoscopy in 2016 done at [facility] by Dr. Moon. On admission hemoglobin was 11.7, repeat today 10.5. He continues to have dark/maroon stools with bright red blood in the toilet. He continues to deny any abdominal pain, cramping, nausea, or vomiting. Possible etiologies include peptic ulcer disease, gastritis, esophagitis or AVM. Lower GI bleed also needs to be considered. Recommend proceeding with EGD and colonoscopy. Current Visit: Yes Status: Acute Code(s): K92.2 - GASTROINTESTINAL HEMORRHAGE, UNSPECIFIED SNOMED Code(s): 67286909 (2) History of colectomy Current Visit: No Status: Acute Code(s): Z90.49 - ACQUIRED ABSENCE OF OTHER SPECIFIED PARTS OF DIGESTIVE TRACT SNOMED Code(s): 700221320 Plan: 1. Continue symptomatic and supportive care 2. CBC every 6 hours 2, transfuse for hemoglobin less than 7 3. Repeat CBC in the morning 4. Patient may have clear liquid diet, nothing by mouth after midnight 5. Bowel prep this evening 6. Avoid NSAIDs 7. Protonix 40 mg twice a day 8. Recommend proceeding with EGD and colonoscopy, procedure discussed in detail with patient and family at the bedside, including risks and benefits. The patient would like to proceed with procedure. Thank you for this consultation, we will continue to follow. Dr. Zachery Obrien I agree with the dictator's note, documented as a scribe by Judith Salinas.
[2021-01-03] MEDS: DEXTROSE 5%-0.9% NACL 1,000 ML IV SCH (13:33)
[2021-01-03] MEDS ORDERED: DOCUSATE 100 MG CAP PO PRN (14:07)
[2021-01-03 14:08] LABS: Hemoglobin A1C 7.2 % (4.0-6.0)
--- NOTE | 2021-01-03 14:12 | P.PN ---
Subjective This is a pleasant 80 years old male with past medical history of coronary artery disease, status post stent, diabetes mellitus, hypertension, hyper lipidemia, prostate cancer. Patient was sent from [facility] for GI bleed. Patient woke up 3:00 this morning with diarrhea.It was liquid stool black with some fresh blood in it associated with generalized weakness and difficulty walking due to his weakness but no abdominal pain, no vomiting, no chest pain or dyspnea. He is also complaining from cough and some of phlegm No headache or weakness or numbness. Smoking, occasional alcohol, no illicit drugs. Patient no suicidal ideation. Vital signs stable, tachycardic with heart rate 100-105. WBC is elevated at 14.7 In the emergency room he was started on normal saline at 75 mL/h On reviewing the records from [facility] Elevated WBC at 17 K, and hemoglobin is 11.9, platelet normal at 302. Sodium normal At 137, normal potassium at 4.7, normal creatinine 0.8 and elevated glucose at 259 Lactic acid elevated at 2.5, troponin negative less than 0.02. Occult blood in stool was positive. Liver enzymes AST and ALT were normal at 2119 respectively. Bilirubin is normal at 0.6 and normal INR at 1.04. 01/03/2021 Patient is with no abdominal pain or tenderness today. No nausea vomiting. He does not have any more bleeding per rectum Hemodynamically stable, WBCs trending down to 11.6. Hemoglobin is down a little little bit 10.5. No bowel obstruction per CT of the abdomen and pelvis. Rigidity input is appreciated Plan for EGD and colonoscopy tomorrow Continue with normal saline at 75 mm/h Resume his blood pressure medication. Discontinue clonidine Objective - Vital Signs Vital signs: Vital Signs Temp 98.5 F 01/03/21 08:00 Pulse 88 01/03/21 08:00 Resp 16 01/03/21 08:00 BP 155/77 01/03/21 08:00 Pulse Ox 98 01/03/21 08:00 Intake & Output 01/02/21 01/03/21 01/03/21 18:59 06:59 18:59 Intake Total 900 Balance 900 Weight 88.451 kg Intake: Intake, IV Titration 900 Amount Dextrose 5%-0.9% NaCl 1, 300 000 ml @ 75 mls/hr IV . [id number] [facility] Rx#:[id number] Piperacillin-Tazobactam 3 100 .375 gm In Sodium Chloride 0.9% 100 ml @ 25 mls/hr IVPB Q8H [facility] Rx#: [id number] Sodium Chloride 0.9% 500 500 ml 500 ml @ 999 mls/hr IV .Q31M [facility] Rx#:[id number] Other: # Voids 3 - Exam -GENERAL: The patient is alert and oriented x3, not in any acute distress. Obese HEENT: Pupils are round and equally reacting to light. EOMI. No scleral icterus. No conjunctival pallor. Normocephalic, atraumatic. No pharyngeal erythema. No thyromegaly. CARDIOVASCULAR: S1 and S2 present. No murmurs, rubs, or gallops. PULMONARY: Chest is clear to auscultation, no wheezing or crackles. ABDOMEN: Soft, nontender, nondistended, normoactive bowel sounds. No palpable organomegaly. MUSCULOSKELETAL: No joint swelling or deformity. EXTREMITIES: No cyanosis, clubbing, or pedal edema. NEUROLOGICAL: Gross neurological examination did not reveal any focal deficits. SKIN: No rashes. No petechiae - Labs CBC & Chem 7: 01/03/21 07:21 01/03/21 07:21 Labs: Abnormal Lab Results - Last 24 Hours (Table) 01/02/21 01/02/21 01/02/21 Range/Units 17:51 18:03 20:20 WBC 12.4 H (3.8-10.6) k/uL RBC 3.79 L (4.30-5.90) m/uL Hgb 11.7 L (13.0-17.5) gm/dL Hct 35.4 L (39.0-53.0) % MCHC (32.0-37.0) g/dL Neutrophils # 8.1 H (1.3-7.7) k/uL Eosinophils # (0.04-0.35) X 10*3/uL Sodium (137-145) mmol/L Carbon Dioxide (22-30) mmol/L BUN (9-20) mg/dL BUN/Creatinine Ratio (12.00-20.00) Ratio Glucose (74-99) mg/dL POC Glucose (mg/dL) 138 H (75-99) mg/dL Plasma Lactic Acid Sharif 2.8 H* (0.7-2.0) mmol/L Calcium (8.7-10.3) mg/dL Total Protein (6.2-8.2) g/dL 01/02/21 01/02/21 01/03/21 Range/Units 20:20 20:37 06:52 WBC (3.8-10.6) k/uL RBC (4.30-5.90) m/uL Hgb (13.0-17.5) gm/dL Hct (39.0-53.0) % MCHC (32.0-37.0) g/dL Neutrophils # (1.3-7.7) k/uL Eosinophils # (0.04-0.35) X 10*3/uL Sodium 136 L (137-145) mmol/L Carbon Dioxide 21 L (22-30) mmol/L BUN 22 H (9-20) mg/dL BUN/Creatinine Ratio (12.00-20.00) Ratio Glucose 194 H (74-99) mg/dL POC Glucose (mg/dL) 199 H 150 H (75-99) mg/dL Plasma Lactic Acid Sharif (0.7-2.0) mmol/L Calcium (8.7-10.3) mg/dL Total Protein (6.2-8.2) g/dL 01/03/21 01/03/21 01/03/21 Range/Units 07:21 07:21 11:41 WBC 11.64 H (3.8-10.6) k/uL RBC 3.66 L (4.30-5.90) m/uL Hgb 10.5 L (13.0-17.5) gm/dL Hct 33.1 L (39.0-53.0) % MCHC 31.7 L (32.0-37.0) g/dL Neutrophils # (1.3-7.7) k/uL Eosinophils # 0.96 H (0.04-0.35) X 10*3/uL Sodium (137-145) mmol/L Carbon Dioxide 21.1 L (22-30) mmol/L BUN (9-20) mg/dL BUN/Creatinine Ratio 21.11 H (12.00-20.00) Ratio Glucose 180 H (74-99) mg/dL POC Glucose (mg/dL) 168 H (75-99) mg/dL Plasma Lactic Acid Sharif (0.7-2.0) mmol/L Calcium 8.5 L (8.7-10.3) mg/dL Total Protein 5.6 L (6.2-8.2) g/dL Assessment and Plan Assessment: Acute bleeding per rectum Diarrhea with no abdominal pain Mild anemia No suspicion for infection, pneumonia or intra-abdominal. Check procalcitonin and continue antibiotics till then Diabetes mellitus Hypertension Hyperlipidemia Prostatic cancer Plan: this is a pleasant 80 years old male was sent from [facility] for possible GI bleed and UTI GI team consult with the plan for EGD/colonoscopy tomorrow Check pro-calcitonincontinue with Zosyn empirically Check hemoglobin A1c Labs and medication were reviewed.. Continue same treatment. Continue with symptomatic treatment. Resume home medication. Monitor lytes and vitals. DVT and GI prophylaxis. Further recommendations depends on the clinical course of the patient DVT prophylaxis: no Subcutaneous heparin for possible GI bleed GI Prophylaxis: Ppi PT/OT: Prognosis is guarded
[2021-01-03] MEDS ORDERED: LIDOCAINE 1% (10MG/ML) FOR IV START INTRADERMA PRN (14:40)
[2021-01-03] MEDS ORDERED: LACTATED RINGERS 1,000 ML IV SCH (14:45)
[2021-01-03] MEDS: DULoxetine HCL 60 MG CAPSULE.DR PO SCH (15:29)
[2021-01-03] MEDS: METOPROLOL TARTRATE 25 MG TAB PO SCH (15:29)
[2021-01-03] MEDS: LOSARTAN 50 MG TAB PO SCH (15:29)
[2021-01-03] MEDS: TAMSULOSIN 0.4 MG CAP.ER.24H PO SCH (15:29)
[2021-01-03] MEDS ORDERED: PEG 3350-NA SULF,BICARB,CL/KCL 4,000 ML BOTTLE PO ONE (16:00)
[2021-01-03 16:47] LABS: Glucose,Whole Blood 127 mg/dL (75-99)
[2021-01-03 19:07] LABS: HCT 35.8 % (39.0-53.0); HGB 11.6 gm/dL (13.0-17.5); Hypochromasia Slight; MCH 29.1 pg (25.0-35.0); MCHC 32.3 g/dL (31.0-37.0); MCV 90.3 fL (80.0-100.0); Mean Platelet Volume 7.7; Platelet Count 232 k/uL (150-450); RBC 3.97 m/uL (4.30-5.90); RDW 14.3 % (11.5-15.5); WBC 12.6 k/uL (3.8-10.6)
[2021-01-03 20:51] LABS: Glucose,Whole Blood 141 mg/dL (75-99)
[2021-01-03] MEDS: OXYBUTYNIN 10 MG TAB.ER.24 PO SCH (21:02)
[2021-01-04] MEDS: PIPERACILLIN-TAZOBACTAM 3.375 GM in SODIUM CHLORIDE 0.9% 100 ML IVPB SCH ×2 (04:02→12:17)
[2021-01-04] MEDS: DEXTROSE 5%-0.9% NACL 1,000 ML IV SCH ×2 (05:00→12:18)
[2021-01-04 07:11] LABS: Glucose,Whole Blood 157 mg/dL (75-99)
[2021-01-04 07:21] LABS: HCT 31.8 % (39.0-53.0); HGB 10.5 gm/dL (13.0-17.5); MCH 29.9 pg (25.0-35.0); MCV 90.7 fL (80.0-100.0); Mean Platelet Volume 7.9; Platelet Count 206 k/uL (150-450); RBC 3.51 m/uL (4.30-5.90); RDW 14.2 % (11.5-15.5)
[2021-01-04] MEDS: INSULIN ASPART (NovoLOG) 100 UNIT/ML VIAL SQ SCH ×2 (07:39→11:50)
[2021-01-04] MEDS: PANTOPRAZOLE 40 MG/10 ML VIAL IVP SCH (08:26)
[2021-01-04] MEDS: DULoxetine HCL 60 MG CAPSULE.DR PO SCH (08:27)
[2021-01-04] MEDS: TAMSULOSIN 0.4 MG CAP.ER.24H PO SCH (08:27)
[2021-01-04] MEDS: METOPROLOL TARTRATE 25 MG TAB PO SCH (08:27)
[2021-01-04] MEDS: OXYBUTYNIN 10 MG TAB.ER.24 PO SCH (08:27)
[2021-01-04] MEDS: LOSARTAN 50 MG TAB PO SCH (08:27)
[2021-01-04] MEDS ORDERED: MAGNESIUM CITRATE 296 ML BOTTLE PO ONE (08:30)
[2021-01-04] MEDS ORDERED: PRAVASTATIN SODIUM 40 MG TAB PO SCH (09:00)
--- NOTE | 2021-01-04 11:23 | P.PN ---
Subjective Progress Note Date: 01/04/21 CHIEF COMPLAINT: GI bleed HISTORY OF PRESENT ILLNESS: Patient denies any abdominal pain. He scheduled for EGD and colonoscopy today with GI service. He denies any nausea or vomiting. Afebrile. WBC has normalized from 4.6-9 hemoglobin is down from 11.6-10.5 PHYSICAL EXAM: VITAL SIGNS: Reviewed. GENERAL: Well-developed in no acute distress. HEENT: No sclera icterus. Extraocular movements grossly intact. Moist buccal mucosa. Head is atraumatic, normocephalic. ABDOMEN: Soft. Nondistended. Nontender. NEUROLOGIC: Alert and oriented. Cranial nerves II through XII grossly intact. ASSESSMENT: 1. Acute GI bleed with daily NSAID use. 2. Possible ileus, enteritis or early small bowel obstruction on x-ray. This has been ruled out. Computed tomography scan of the abdomen and pelvis shows no evidence of bowel obstruction or inflammatory process PLAN: -Patient scheduled for EGD and colonoscopy for today with GI service -continue supportive care Physician Paramedic Supervisor note has been reviewed by physician. Signing provider agrees with the documented findings, assessment, and plan of care. Objective - Vital Signs Vital signs: Vital Signs Temp 98.3 F 01/04/21 08:00 Pulse 82 01/04/21 08:00 Resp 16 01/04/21 08:00 BP 155/65 01/04/21 08:00 Pulse Ox 95 01/04/21 08:00 Intake & Output 01/03/21 01/04/21 01/04/21 18:59 06:59 18:59 Output Total 1 Balance -1 Output: Urine 1 Other: # Voids 1 2 # Bowel Movements 2 - Labs CBC & Chem 7: 01/04/21 06:19 01/03/21 07:21 Labs: Abnormal Lab Results - Last 24 Hours (Table) 01/03/21 01/03/21 01/03/21 Range/Units 07: 07:21 11:41 WBC (3.8-10.6) k/uL RBC (4.30-5.90) m/uL Hgb (13.0-17.5) gm/dL Hct (39.0-53.0) % Carbon Dioxide 21.1 L (21.6-31.8) mmol/L BUN/Creatinine Ratio 21.11 H (12.00-20.00) Ratio Glucose 180 H (70-110) mg/dL POC Glucose (mg/dL) 168 H (75-99) mg/dL Hemoglobin A1c 7.2 H (4.0-6.0) % Calcium 8.5 L (8.7-10.3) mg/dL Total Protein 5.6 L (6.2-8.2) g/dL 01/03/21 01/03/21 01/03/21 Range/Units 16:45 18:41 20:50 WBC 12.6 H (3.8-10.6) k/uL RBC 3.97 L (4.30-5.90) m/uL Hgb 11.6 L (13.0-17.5) gm/dL Hct 35.8 L (39.0-53.0) % Carbon Dioxide (21.6-31.8) mmol/L BUN/Creatinine Ratio (12.00-20.00) Ratio Glucose (70-110) mg/dL POC Glucose (mg/dL) 127 H 141 H (75-99) mg/dL Hemoglobin A1c (4.0-6.0) % Calcium (8.7-10.3) mg/dL Total Protein (6.2-8.2) g/dL 01/04/21 01/04/21 Range/Units 06:19 07:09 WBC (3.8-10.6) k/uL RBC 3.51 L (4.30-5.90) m/uL Hgb 10.5 L (13.0-17.5) gm/dL Hct 31.8 L (39.0-53.0) % Carbon Dioxide (21.6-31.8) mmol/L BUN/Creatinine Ratio (12.00-20.00) Ratio Glucose (70-110) mg/dL POC Glucose (mg/dL) 157 H (75-99) mg/dL Hemoglobin A1c (4.0-6.0) % Calcium (8.7-10.3) mg/dL Total Protein (6.2-8.2) g/dL Microbiology - Last 24 Hours (Table) 01/02/21 20:20 Blood Culture - Preliminary Blood No Growth after 24 hours
[2021-01-04 11:40] LABS: Glucose,Whole Blood 146 mg/dL (75-99)
[2021-01-04] MEDS ORDERED: PROPOFOL 10 MG/ML 20 ML VIAL IV ONE (13:11)
[2021-01-04] MEDS ORDERED: IV FLUID CONTINUATION 1,000 ML IV ONE (13:14)
--- NOTE | 2021-01-04 13:46 | P.PCN ---
Date of Procedure: 01/04/21 Procedure(s) Performed: Brief history: Patient is a pleasant 80-year-old white male in the hospital with some darker stool as well as bright red blood per rectum. Initial hemoglobin was 7.5 g/dL and subsequently stent 0.5 g/dL today. He scheduled for an upper endoscopy as well as colonoscopy to evaluate further. Procedure performed: Esophagogastroduodenoscopy Colonoscopy Preoperative diagnosis: Black tarry stools Rectal bleeding Anesthesia: MAC Procedure: After informed consent was obtained from the patient was brought into the endoscopy unit and IV sedation was administered by anesthesia under continuous monitoring. Initially upper endoscopy was done. The Olympus GF 160 video endoscope was inserted inserted into the mouth and esophagus intubated without any difficulty and was gradually advanced into the stomach and duodenum and carefully examined. The bulb and second part of the duodenum appeared normal. The scope was then withdrawn into the stomach adequately insufflated with air and upon careful examination the antrum had scattered erosions. The body, cardia and fundus appeared normal. The scope was then withdrawn into the esophagus. The GE junction was located at 40 cm to the incisors. It appeared regular but there where erosions with thickened esophageal folds noted in the distal esophagus consistent with LA grade B reflux esophagitis. Rest of the esophagus appeared normal. Patient tolerated the procedure well. At this time the patient continued to remain sedation. Initial digital rectal examination was normal. Olympus CF 160 video colonoscope was then inserted into the rectum and gradually advanced to the cecum without any difficulty. Careful examination was performed as the scope was gradually being withdrawn. The prep was excellent. The cecum, ascending colon, transverse colon, descending colon, sigmoid colon and rectum appeared normal. Extensive left sided diverticulosis seen. Since. Theetroflexion was performed in the rectum and monitor hemorrhoidse noted. Patient tolerated the procedure well. Impression: 1. Upper endoscopy revealed antral erosive gastritis and reflux esophagitis. No active bleeding noted 2. Colonoscopy revealed diffuse diverticulosis mostly in the left colon, small internal hemorrhoids . No evidence of colorectal neoplasia Recommendations: Findings of this examination were discussed with the patient as well as his family. At this time and monitor CBC daily. Advance diet as tolerated.
[2021-01-04 15:30] VITALS: BP 147/73; PULSE 63; RESP 19; TEMP 97.9
--- NOTE | 2021-01-05 01:15 | P.DS ---
Providers Date of admission: 01/02/21 12:01 Attending physician: Socrates Marinelli MD Consults: 01/02/21 12:01 Consult Physician Urgent Consulting Provider: Sushila Obrien Consult Reason/Comments: GI bleed Do you want consulting provider notified?: Yes 01/02/21 19:55 Consult Physician Urgent Consulting Provider: Rigoberto Siddiqui Consult Reason/Comments: possible bowel obstruction Do you want consulting provider notified?: Yes Primary care physician: Rolando Zafar Hospital Course: diagnoses: Acute bleeding per rectum. Status post EGD showing gastritis and esophagitis and colonoscopy showing diverticulosis. Bleeding was stopped and patient cleared for discharge by GI service Diarrhea with no abdominal pain. Stopped prior to discharge Mild anemia No suspicion for infection, pneumonia or intra-abdominal. Check procalcitonin and continue antibiotics till then Diabetes mellitus Hypertension Hyperlipidemia Prostatic cancer hospital course: This is a pleasant 80 years old male with past medical history of coronary artery disease, status post stent, diabetes mellitus, hypertension, hyperlipidemia, prostate cancer. Patient was sent from [facility] for GI bleed. Patient woke up in the morning with diarrhea.It was liquid stool black with some fresh blood in it associated with generalized weakness . Patient has been evaluated by physical therapist prior to discharge GI team also recommended EGD and colonoscopy as below 1. Upper endoscopy revealed antral erosive gastritis and reflux esophagitis. No active bleeding noted 2. Colonoscopy revealed diffuse diverticulosis mostly in the left colon, small internal hemorrhoids . No evidence of colorectal neoplasia On the day of discharge patient was asymptomatic with no abdominal pain, no more diarrhea. He tolerates diet well Hemoglobin remained stable at 10.5 upon discharge. And hemodynamically was stable. His leukocytosis improved down to normal WBC at 9.0 upon discharge Patient was cleared for discharge by GI team and to resume his aspirin upon discharge. Patient sent home with Protonix 40 mg twice a day Problems and management plan were discussed with the patient and he verbalized understanding and acceptance Patient was found stable and can be discharged home however he needs follow-up as an outpatient. Patient was instructed to follow up with PCP Dr. Zafar within one week and patient agrees Also patient was instructed to follow up with GI team and Dr. Obrien in 1-2 weeks and surgery team with Dr. Sahni in 1-2 weeks and he agrees to call and make his own appointment Physical exam Gen: patient is a AAOx3, no distress CVS: S1-S2, RRR, no murmur Lungs: B/L CTA, no wheezing Abdomen: soft, no distention, no tenderness, positive bowel sounds Extremity: no leg edema or induration Time spent more than 35 minutes Patient Condition at Discharge: Fair Plan - Discharge Summary Discharge Rx Participant: No New Discharge Prescriptions: New Pantoprazole Sodium [Protonix] 40 mg PO BID 60 Days tab Continue RX: Tamsulosin HCl [Flomax] 0.4 mg PO DAILY RX: Insulin Regular, Human [NovoLIN R] See Protocol SQ AC-TID PRN PRN Reason: Blood Sugar - High RX: Aspirin EC [Ecotrin Low Dose] 81 mg PO HS RX: Oxybutynin Chloride [Oxybutynin Chloride ER] 10 mg PO BID RX: Insulin Glargine,Hum.rec.anlog [Lantus Solostar Pen] 10 unit SQ DAILY RX: DULoxetine HCL [Cymbalta] 60 mg PO DAILY RX: Pravastatin Sodium [Pravachol] 40 mg PO DAILY RX: Multivitamins, Thera [Multivitamin (formulary)] 1 tab PO HS RX: Docusate [Colace] 100 mg PO DAILY PRN PRN Reason: Constipation RX: Albuterol Nebulized [Ventolin Nebulized] 2.5 mg INHALATION RT-Q4H PRN PRN Reason: Shortness Of Breath RX: Losartan [Cozaar] 50 mg PO DAILY RX: Brimonidine Tartrate/Timolol [Combigan 0.2%-0.5% Eye Drops] 1 drop LEFT EYE BID RX: Metoprolol Tartrate [Lopressor] 25 mg PO DAILY Discontinued Meloxicam [Mobic] 15 mg PO DAILY Discharge Medication List RX: Tamsulosin HCl [Flomax] 0.4 mg PO DAILY 11/28/15 [History] RX: Albuterol Nebulized [Ventolin Nebulized] 2.5 mg INHALATION RT-Q4H PRN 01/02/21 [History] RX: Aspirin EC [Ecotrin Low Dose] 81 mg PO HS 01/02/21 [History] RX: Brimonidine Tartrate/Timolol [Combigan 0.2%-0.5% Eye Drops] 1 drop LEFT EYE BID 01/02/21 [History] RX: DULoxetine HCL [Cymbalta] 60 mg PO DAILY 01/02/21 [History] RX: Docusate [Colace] 100 mg PO DAILY PRN 01/02/21 [History] RX: Insulin Glargine,Hum.rec.anlog [Lantus Solostar Pen] 10 unit SQ DAILY 01/02/21 [History] RX: Insulin Regular, Human [NovoLIN R] See Protocol SQ AC-TID PRN 01/02/21 [History] RX: Losartan [Cozaar] 50 mg PO DAILY 01/02/21 [History] RX: Metoprolol Tartrate [Lopressor] 25 mg PO DAILY 01/02/21 [History] RX: Multivitamins, Thera [Multivitamin (formulary)] 1 tab PO HS 01/02/21 [History] RX: Oxybutynin Chloride [Oxybutynin Chloride ER] 10 mg PO BID 01/02/21 [History] RX: Pravastatin Sodium [Pravachol] 40 mg PO DAILY 01/02/21 [History] Pantoprazole Sodium [Protonix] 40 mg PO BID 60 Days tab 01/04/21 [Rx] Follow up Appointment(s)/Referral(s): Sushila Obrien MD [STAFF PHYSICIAN] - 01/15/21 12:15 pm Rolando Zafar MD [Primary Care Provider] - 1-2 days Rigoberto Siddiqui MD [STAFF PHYSICIAN] - 2 Weeks Patient Instructions/Handouts: Diverticulosis (DC), Esophagitis (DC) Activity/Diet/Wound Care/Special Instructions: Heart healthy diet Activity is restricted till you see your doctor Avoid NSAIDs, like no Mobic, no Motrin, no ibuprofen, no naproxen. you can take your baby aspirin at home Discharge Disposition: HOME SELF-CARE
== END 2021-01-04 16:25 | disposition home or self-care (01) | DRG 378 ==
LOC: EC 11:06 → 4SSUR 12:01
PROVIDERS: ADMIT Internal Medicine; ATTEND Internal Medicine
PROC: 0DJD8ZZ Inspection of Lower Intestinal Tract, Via Natural or Artificial Opening Endoscopic (ICD-10-PCS; principal; 2021-01-04 11:45)
PROC: 0DJ08ZZ Inspection of Upper Intestinal Tract, Via Natural or Artificial Opening Endoscopic (ICD-10-PCS; principal; 2021-01-04 11:45)
DX: K57.31 Diverticulosis of large intestine without perforation or abscess with bleeding (principal); N39.0 Urinary tract infection, site not specified; D64.9 Anemia, unspecified; C61 Malignant neoplasm of prostate; D72.829 Elevated white blood cell count, unspecified; E11.65 Type 2 diabetes mellitus with hyperglycemia; E78.5 Hyperlipidemia, unspecified; F32.9 Major depressive disorder, single episode, unspecified; I10 Essential (primary) hypertension; I25.10 Atherosclerotic heart disease of native coronary artery without angina pectoris; J44.9 Chronic obstructive pulmonary disease, unspecified; K21.00 Gastro-esophageal reflux disease with esophagitis, without bleeding; K29.60 Other gastritis without bleeding; K64.8 Other hemorrhoids; Z79.1 Long term (current) use of non-steroidal anti-inflammatories (NSAID); Z79.4 Long term (current) use of insulin; Z79.51 Long term (current) use of inhaled steroids; Z79.899 Other long term (current) drug therapy; Z82.49 Family history of ischemic heart disease and other diseases of the circulatory system; Z87.442 Personal history of urinary calculi; Z90.49 Acquired absence of other specified parts of digestive tract; Z95.5 Presence of coronary angioplasty implant and graft; Z98.42 Cataract extraction status, left eye; Z98.41 Cataract extraction status, right eye; Z87.01 Personal history of pneumonia (recurrent); Z87.440 Personal history of urinary (tract) infections; Z87.820 Personal history of traumatic brain injury; R26.2 Difficulty in walking, not elsewhere classified; Z80.9 Family history of malignant neoplasm, unspecified
CPT/HCPCS: 36415; 43235; 45378; 71045; 74018; 74177; 80048; 80076; 81003; 83036; 83605; 83735; 84145; 85025; 85027; 87040; 99285

== ENCOUNTER 2024-02-02 23:20 | Inpatient (IN) | payer MEDICAID, MEDICARE, OTHER ==
[2024-02-02] MEDS: SODIUM CHLORIDE 0.9% 1,000 ML IV SCH (23:51)
[2024-02-02] MEDS ORDERED: VANCOMYCIN IV PER PHARMACY 1 EACH MISC MISCELLANE PRN (23:54)
[2024-02-02] MEDS ORDERED: NALOXONE 0.4 MG/ML 1 ML VIAL IV PRN (23:56)
[2024-02-02] MEDS ORDERED: ONDANSETRON 4 MG/2 ML VIAL IVP PRN (23:56)
--- NOTE | 2024-02-03 00:05 | ED ---
General Adult HPI - General Chief complaint: Altered Mental Status Stated complaint: Pneumonia, Sepsis Time Seen by Provider: 02/02/24 23:23 Source: patient, EMS, RN notes reviewed, old records reviewed Mode of arrival: EMS Limitations: altered mental status - History of Present Illness Initial comments: 83-year-old male presented as a transfer from outside hospital with altered level of consciousness, fall, and sepsis. Patient was initially brought in after being found by family in the bathroom for prolonged period of time up to 23 hours. Patient was noted to be febrile. Patient was found to have a left lower lobe pneumonia as well as the possibility of infected pacemaker. Patient had recent pacemaker placed. He also had an elevated creatinine kinase over 4000. Fever was 103. He was given Zosyn and vancomycin prior to transfer. Patient is a DNR but family reports that he would like medical management. - Related Data Home Medications Medication Instructions Recorded Confirmed Tamsulosin HCl [Flomax] 0.4 mg PO DAILY 11/28/15 01/02/21 Albuterol Nebulized [Ventolin 2.5 mg INHALATION RT-Q4H PRN 01/02/21 01/02/21 Nebulized] Aspirin EC [Ecotrin Low Dose] 81 mg PO HS 01/02/21 01/02/21 Brimonidine Tartrate/Timolol 1 drop LEFT EYE BID 01/02/21 01/02/21 [Combigan 0.2%-0.5% Eye Drops] DULoxetine HCL [Cymbalta] 60 mg PO DAILY 01/02/21 01/02/21 Docusate [Colace] 100 mg PO DAILY PRN 01/02/21 01/02/21 Insulin Glargine,Hum.rec.anlog 10 unit SQ DAILY 01/02/21 01/02/21 [Lantus Solostar Pen] Insulin Regular, Human [NovoLIN R] See Protocol SQ AC-TID PRN 01/02/21 01/02/21 Losartan [Cozaar] 50 mg PO DAILY 01/02/21 01/02/21 Metoprolol Tartrate [Lopressor] 25 mg PO DAILY 01/02/21 01/02/21 Multivitamins, Thera [Multivitamin 1 tab PO HS 01/02/21 01/02/21 (formulary)] Oxybutynin Chloride [oxyBUTYnin 10 mg PO BID 01/02/21 01/02/21 chloride ER] Pravastatin Sodium [Pravachol] 40 mg PO DAILY 01/02/21 01/02/21 Previous Rx's Medication Instructions Recorded Pantoprazole Sodium [Protonix] 40 mg PO BID 60 Days tab 01/04/21 Allergies Allergy/AdvReac Type Severity Reaction Status Date / Time No Known Allergies Allergy Verified 01/02/21 12:48 Review of Systems ROS Statement: Those systems with pertinent positive or pertinent negative responses have been documented in the HPI. ROS Other: All systems not noted in ROS Statement are negative. Past Medical History Past Medical History: Coronary Artery Disease (CAD), Cancer, Chest Pain / Angina, COPD, Diabetes Mellitus, GERD/Reflux, Hyperlipidemia, Hypertension, Pneumonia Additional Past Medical History / Comment(s): came from [facility]- (rectal bleeding) and uti. kidney stone in past,constipation, arthritis in back, anemia,prostate cancer, hands shake at times, head inj/brain bleed 2016-no sx was needed. History of Any Multi-Drug Resistant Organisms: None Reported Past Surgical History: Appendectomy, Heart Catheterization With Stent Additional Past Surgical History / Comment(s): orif rt ankle(metal inpalce), era cataracts, 2 cardiac stents to prox leather polisher Past Anesthesia/Blood Transfusion Reactions: No Reported Reaction Date of Last Stent Placement:: unk Past Psychological History: Depression Past Alcohol Use History: None Reported Past Drug Use History: None Reported - Past Family History Father Family Medical History: Cancer Mother Family Medical History: Myocardial Infarction (MS) General Exam Limitations: altered mental status General appearance: lethargic, in distress Head exam: Present: atraumatic, normocephalic Eye exam: Present: normal appearance, PERRL ENT exam: Present: mucous membranes dry Respiratory exam: Present: respiratory distress, rhonchi, decreased breath sounds Cardiovascular Exam: Present: regular rate, normal rhythm GI/Abdominal exam: Present: soft, distended, other (Diffuse bruising over the abdomen). Absent: tenderness Extremities exam: Present: normal capillary refill. Absent: calf tenderness Neurological exam: Absent: alert, oriented X3 Skin exam: Present: warm, intact Course Vital Signs 02/02/24 23:20 Temperature 100.2 F H Pulse Rate 106 H Respiratory 26 H Rate Blood Pressure 128/68 O2 Sat by Pulse 97 Oximetry Medical Decision Making - Medical Decision Making Was pt. sent in by a medical professional or institution ([facility] Isaac, PROPERTY LOSS INSURANCE CLAIM ADJUSTER, urgent care, hospital, or retirement...) When possible be specific @ -Transferred for sepsis with delirium Did you speak to anyone other than the patient for history (EMS, parent, family, police, friend...)? What history was obtained from this source @ -Patient's son and [id number] Did you review nursing and triage notes (agree or disagree)? Why? @ -I reviewed and agree with nursing and triage notes Were old charts reviewed (outside hosp., previous admission, EMS record, old EKG, old radiological studies, urgent care reports/EKG's, retirement records)? Report findings @ -No old charts were reviewed Differential Fever: Pneumonia, viral URI, endocarditis, myocarditis, pericarditis, otitis, sinusitis, peritonsillar Abscess, retropharyngeal Abscess, epiglottitis, peritonitis, appendicitis, Sherita cystitis, diverticulitis, hepatitis, colitis, UTI, PID, TOA, pyelonephritis, prostatitis, epididymitis, meningitis, encephalitis, pulmonary embolism, CVA, thyroid storm, pancreatitis, adrenal crisis, cavernous sinus thrombosis, this is not meant to be an all-inclusive list. EKG interpreted by me (3pts min.). @ -EKG: Sinus rhythm with first-degree AV block, right bundle branch block, rate of 94, QRS duration 141, MD interval 266, QTc [address] segment elevation. X-rays interpreted by me (1pt min.). @ -None done CT interpreted by me (1pt min.). @ -None done U/S interpreted by me (1pt. min.). @ -None done What testing was considered but not performed or refused? (CT, X-rays, U/S, labs)? Why? @ -None What meds were considered but not given or refused? Why? @ -None Did you discuss the management of the patient with other professionals (professionals i.e. [employer] Isaac, PROPERTY LOSS INSURANCE CLAIM ADJUSTER, lab, RT, psych nurse, fellmongery worker, target developer, teacher, special assets officer, case management specialist)? Give summary @ -Admitted to [facility]. Was smoking cessation discussed for >3mins.? @ -No Was critical care preformed (if so, how long)? @ -yes 35 min Were there social determinants of health that impacted care today? How? (Homelessness, low income, unemployed, alcoholism, drug addiction, medina sportation, low edu. Level, literacy, decrease access to med. care, residential, rehab)? @ -No Was there de-escalation of care discussed even if they declined (Discuss DNR or withdrawal of care, Hospice)? DNR status @ -No What co-morbidities impacted this encounter? (DM, HTN, Smoking, COPD, CAD, Cancer, CVA, ARF, Chemo, Hep., AIDS, mental health diagnosis, sleep apnea, morbid obesity)? @ -Recent pacemaker placement Was patient admitted / discharged? Hospital course, mention meds given and route, prescriptions, significant lab abnormalities, going to OR and other pertinent info. @33-year-old male presenting with altered mental status, fever, rhabdomyolysis. Patient was transferred from [facility]. Patient has erythema and purulence from pacemaker incision. X-ray shows left lower lobe infiltrate. He has a leukocytosis. His viral panel is negative. Laboratory studies including CBC and CMP are repeated. Patient had blood cultures drawn at outside hospital prior to transfer. He was started on Zosyn and vancomycin he will be continued on these medications. He is admitted to internal medicine with the Dr. Dominguez who has evaluated his pacemaker wound from the wound center and Dr. Beck from infectious disease. Undiagnosed new problem with uncertain prognosis? @ -No Drug Therapy requiring intensive monitoring for toxicity (Heparin, Nitro, Insulin, Cardizem)? @ -No Were any procedures done? @ -No Diagnosis/symptom? @ -Delirium secondary to sepsis, cellulitis, pneumonia, rhabdomyolysis Acute, or Chronic, or Acute on Chronic? @ -Acute Uncomplicated (without systemic symptoms) or Complicated (systemic symptoms)? @ -[Complicated Side effects of treatment? @ -No Exacerbation, Progression, or Severe Exacerbation? @ -No Poses a threat to life or bodily function? How? (Chest pain, USA, MS, pneumonia, PE, COPD, DKA, ARF, appy, cholecystitis, CVA, Diverticulitis, Homicidal, Suicidal, threat to staff... and all critical care pts) @ -Yes, sepsis, organ failure, Critical Care Time Critical Care Time: Yes Total Critical Care Time: 35 Disposition Clinical Impression: Delirium due to general medical condition, Sepsis, Cellulitis, Rhabdomyolysis Disposition: ADMITTED IP TO THIS [facility] Condition: Serious Is patient prescribed a controlled substance at d/c from ED?: No Referrals: Rolando Zafar MD [Primary Care Provider] - 1-2 days Time of Disposition: 00:05
[2024-02-03 00:19] LABS: HCT 33.6 % (39.0-53.0); HGB 10.6 gm/dL (13.0-17.5); Hypochromasia Marked; MCH 26.3 pg (25.0-35.0); MCHC 31.6 g/dL (31.0-37.0); MCV 83.2 fL (80.0-100.0); Mean Platelet Volume 8.2; Platelet Count 156 k/uL (150-450); RBC 4.04 m/uL (4.30-5.90); RDW 15.9 % (11.5-15.5); WBC 10.7 k/uL (3.8-10.6)
[2024-02-03 01:03] LABS: ALT 33 U/L (4-49); AST 123 U/L (17-59); African American GFR (CKD) 83 (>60 ml/min/1.73 sqM); Albumin 3.3 g/dL (3.5-5.0); Alkaline Phosphatase 64 U/L (38-126); Anion Gap 11 mmol/L; Blood Urea Nitrogen 24 mg/dL (9-20); Calcium 8.9 mg/dL (8.4-10.2); Carbon Dioxide 19 mmol/L (22-30); Chloride 108 mmol/L (98-107); Glucose 182 mg/dL (74-99); Non-African American GFR(CKD) 72 (>60 ml/min/1.73 sqM); Potassium 3.4 mmol/L (3.5-5.1); Sodium 138 mmol/L (137-145); Total Bilirubin 1.1 mg/dL (0.2-1.3); Total Protein 5.9 g/dL (6.3-8.2)
[2024-02-03] MEDS: PIPERACILLIN-TAZOBACTAM 3.375 GM in SODIUM CHLORIDE 0.9% 100 ML IVPB SCH ×2 (01:09→03:41)
[2024-02-03 01:53] LABS: Creatine Kinase 4386 U/L (55-170)
[2024-02-03] MEDS: VANCOMYCIN 1,500 MG in SODIUM CHLORIDE 0.9% 500 ML 500 ML IVPB ONE (04:13)
[2024-02-03 04:54] LABS: Band Neutrophils % 8 %; Lymphocytes # (M) 0.75 k/uL (1.0-4.8); Monocytes # (M) 0.21 k/uL (0-1.0); Neutrophils % (M) 83 %; Nucleated Red Blood Cells 0 /100 WBC (0-0); Total Cells Counted 100
[2024-02-03 04:56] LABS: Poikilocytosis (M) Present
[2024-02-03] MEDS: VANCOMYCIN 1,500 MG in SODIUM CHLORIDE 0.9% 500 ML 500 ML IVPB SCH (09:04)
[2024-02-03] MEDS ORDERED: DEXTROSE 50% SYRINGE 50 ML IVP PRN ×4 (09:56→14:37)
[2024-02-03] MEDS: ENOXAPARIN 40 MG/0.4 ML SYRINGE SQ SCH (10:27)
[2024-02-03] MEDS: OXYBUTYNIN 10 MG TAB.ER.24 PO SCH (10:28)
[2024-02-03] MEDS: PANTOPRAZOLE 40 MG TABLET PO SCH (10:28)
[2024-02-03] MEDS: TAMSULOSIN 0.4 MG CAP.ER.24H PO SCH (10:28)
[2024-02-03 10:29] LABS: Glucose,Whole Blood 142 mg/dL (70-110)
[2024-02-03] MEDS: PRAVASTATIN SODIUM 40 MG TAB PO SCH (10:29)
[2024-02-03] MEDS: METOPROLOL TARTRATE 25 MG TAB PO SCH (10:29)
[2024-02-03] MEDS: INSULIN ASPART (NovoLOG) 100 UNIT/ML VIAL SQ SCH (10:35)
[2024-02-03] MEDS: BICALUTAMIDE 50 MG TAB PO SCH (10:37)
[2024-02-03] MEDS: INSULIN DETEMIR (LEVEMIR) 100 UNIT/ML SYR SQ SCH (11:05)
[2024-02-03 11:57] LABS: Glucose,Whole Blood 132 mg/dL (70-110)
--- NOTE | 2024-02-03 14:32 | XR ---
EXAMINATION TYPE: XR chest 1V portable DATE OF EXAM: 02/03/2024 COMPARISON: 01/02/2021 INDICATION: Pneumonia TECHNIQUE: Single frontal view of the chest is obtained. FINDINGS: The heart size is normal. These make overlies left chest. The pulmonary vasculature is normal. There is a small left pleural effusion. IMPRESSION: 1. Mild left pleural effusion. [facility], , 02/03/2024 2:30 PM
--- NOTE | 2024-02-03 14:39 | P.HPIM ---
History of Present Illness H&P Date: 02/03/24 Chief Complaint: Found on the floor This is a pleasant 83-year-old patient, follows with [facility]ERNMENT [facility]FFAIRS [facility]ER Chacha Frank, with Dr. Matthews. Most of the history is obtained by patient's son Masoud who is also the POA at the bedside. About 2 weeks ago patient had a permanent pacemaker placed at [facility]. Patient is being home. Does use a walker. Lives alone. Son and his checking every night to make a meal for him. When they came in yesterday evening the patient was found on the bathroom. Patient had good been there for several hours. Patient does not remember what happened. The pacemaker site look infected. He was taken to [facility]. Diagnosed with pneumonia and sent down here. Patient does not remember the details of what happened. Patient's got some shortness of breath. Slight cough. Review of systems: GEN.: Tired EYES: None HEENT: Decreased hearing NECK: None RESPIRATORY: Some shortness of breath and a bit of cough CARDIOVASCULAR: None GASTROINTESTINAL: None GENITOURINARY: None MUSCULOSKELETAL: Some joint pains e LYMPHATICS: None HEMATOLOGICAL: None PSYCHIATRY: Forgetful NEUROLOGICAL: No focal weakness, he does use a walker Social history: Lives alone. Does use a walker. Smoked 2 to 3 packs a day for close to 60 y ears stopped about 10 years ago. 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 Patient son Osvaldo is the POA Physical examination: VITAL SIGNS: 98.2, 85, 18, 120 x 61, 99% on nasal cannula GENERAL: BMI 34.2, reclining in bed a bit short of breath. EYES: Pupils equal. Conjunctiva shakira l. HEENT: External appearance of nose and ears normal, oral cavity grossly normal. Decreased hearing NECK: JVD unable to assess; masses not palpable. HEART: First and second heart sounds are normal; no edema. LUNGS: Respiratory rate increased; diminished breath sounds. ABDOMEN: Soft, nontender, liver spleen not palpable, no masses palpable. PSYCH: Patient is awake, able to answer simple questions. Not able to tell what happened at home. CHEST wall: Evidence of infection, left infraclavicular area over the pacemaker MUSCULOSKELETAL:No Clubbing/cyanosis;muscles-grossly intact. OA NEUROLOGICAL: Cranial nerves grossly intact; no facial asymmetry, power and sensation grossly intact. LYMPHATICS: No lymph nodes palpable in the axilla and neck INVESTIGATIONS, reviewed in the clinical context: February 02, 2024: White count 10.7 globin 10.6 platelets 156 sodium 138 potassium 3.4 bicarb 19 BUN 24 creatinine 0.98 CPK 4386 EKG tracing personally reviewed by me-very short UT interval. Intraventricular delay. Chest x-ray film personally reviewed by me-left lower lobe infiltrate Assessment plan: -Acute metabolic encephalopathy, with the patient confused was found on the floor. Likely from underlying infection from pneumonia -Left basal pneumonia, suspect gram-negative organism IV cefepime -Infected skin/cellulitis over permanent pacemaker placed 2 weeks ago at [facility] IV vancomycin -Chronic gait dysfunction, uses a walker at baseline -Moderate cognitive impairment -BPH Flomax 0.4 mg a day, oxybutynin -Hypercholesteremia Pravachol 40 mg a day -CAD with prior history of stent Aspirin. Beta-keiry. Protocol. -Normocytic anemia Check B12 folate, iron studies -Prostate cancer, history bicalutamide -GERD Protonix 40 mg twice daily -Diabetes mellitus type 2, chronically on insulin Lantus 16 units a day. Diabetic diet. Follow Accu-Cheks with sliding scale insulin -Essential hypertension Lopressor. Cozaar. -Permanent pacemaker -DNR -Power of pre parole counseling aide, son Osavldo Consultation to ID, cardiology. Care was discussed with patient's son at the bedside. Questions answered. Past Medical History Past Medical History: Coronary Artery Disease (CAD), Cancer, Chest Pain / Angina, COPD, Diabetes Mellitus, GERD/Reflux, Hyperlipidemia, Hypertension, Pneumonia Additional Past Medical History / Comment(s): came from [facility]- (rectal bleeding) and uti. kidney stone in past,constipation, arthritis in back, anemia,prostate cancer, hands shake at times, head inj/brain bleed 2016-no sx was needed. History of Any Multi-Drug Resistant Organisms: None Reported Past Surgical History: Appendectomy, Heart Catheterization With Stent Additional Past Surgical History / Comment(s): orif rt ankle(metal inpalce), era cataracts, 2 cardiac stents to prox cigar packer and grader Past Anesthesia/Blood Transfusion Reactions: No Reported Reaction Date of Last Stent Placement:: unk Past Psychological History: Depression Past Alcohol Use History: None Reported Past Drug Use History: None Reported - Past Family History Father Family Medical History: Cancer Mother Family Medical History: Myocardial Infarction (MS) Medications and Allergies Home Medications Medication Instructions Recorded Confirmed Type Tamsulosin HCl [Flomax] 0.4 mg PO DAILY 11/28/15 02/03/24 History Aspirin EC [Ecotrin Low Dose] 81 mg PO HS 01/02/21 02/03/24 History Insulin Glargine,Hum.rec.anlog 20 unit SQ DAILY 01/02/21 02/03/24 History [Lantus Solostar Pen] Insulin Regular, Human [NovoLIN R] See Protocol SQ AC-TID PRN 01/02/21 02/03/24 History Losartan [Cozaar] 50 mg PO DAILY 01/02/21 02/03/24 History Metoprolol Tartrate [Lopressor] 25 mg PO BID 01/02/21 02/03/24 History Oxybutynin Chloride [oxyBUTYnin 10 mg PO DAILY 01/02/21 02/03/24 History chloride ER] Pravastatin Sodium [Pravachol] 40 mg PO DAILY 01/02/21 02/03/24 History Pantoprazole Sodium [Protonix] 40 mg PO BID 60 Days tab 01/04/21 02/03/24 Rx Bicalutamide 50 mg PO DAILY 02/03/24 02/03/24 History Furosemide [Lasix] 40 mg PO DAILY 02/03/24 02/03/24 History Latanoprost [Latanoprost 0.005%] 1 drop BOTH EYES HS 02/03/24 02/03/24 History Allergies Allergy/AdvReac Type Severity Reaction Status Date / Time No Known Allergies Allergy Verified 02/03/24 08:28 Physical Exam Vitals: Vital Signs Temp Pulse Resp BP Pulse Ox 02/03/24 09:01 98.2 F 85 18 120/61 99 02/03/24 06:09 92 20 125/62 99 02/03/24 03:37 99 18 120/62 99 02/03/24 02:36 99.5 F 102 H 24 114/87 96 02/03/24 00:47 100 24 115/60 98 02/02/24 23:20 100.2 F H 106 H 26 H 128/68 97 Intake and Output 02/02/24 02/03/24 02/03/24 22:59 06:59 14:59 Output Total 480 Balance -480 Output: Urine 480 Other: Weight 102.058 kg Results CBC & Chem 7: 02/02/24 23:59 02/02/24 23:59 Labs: Abnormal Lab Results - Last 24 Hours (Table) 02/02/24 02/02/24 Range/Units 23:59 23:59 WBC 10.7 H (3.8-10.6) k/uL RBC 4.04 L (4.30-5.90) m/uL Hgb 10.6 L (13.0-17.5) gm/dL Hct 33.6 L (39.0-53.0) % RDW 15.9 H (11.5-15.5) % Neutrophils # (Manual) 9.70 H (1.3-7.7) k/uL Lymphocytes # (Manual) 0.75 L (1.0-4.8) k/uL Potassium 3.4 L (3.5-5.1) mmol/L Chloride 108 H (98-107) mmol/L Carbon Dioxide 19 L (22-30) mmol/L BUN 24 H (9-20) mg/dL Glucose 182 H (74-99) mg/dL AST 123 H (17-59) U/L Creatine Kinase 4386 H* (55-170) U/L Total Protein 5.9 L (6.3-8.2) g/dL Albumin 3.3 L (3.5-5.0) g/dL
[2024-02-03] MEDS: CEFEPIME 2 GM in SODIUM CHLORIDE 0.9% 100 ML IVPB SCH (16:30)
[2024-02-03] MEDS: IPRATROPIUM-ALBUTEROL 3 ML NEB INHALATION SCH (16:47)
--- NOTE | 2024-02-03 18:22 | P.GSCN ---
History of Present Illness History of present illness: 83-year-old gentleman came to the emergency room patient was found in the bathroom by family patient went to [facility] x-ray chest showed pneumonia involving the left lobe patient came to the emergency room this patient had a pacemaker placed 2 weeks ago patient had a hematoma Maya which was drained patient had a blood culture and culture from his incision site by infectious disease patient is an IV antibiotic Chest is clear x-ray shows patient has left lobe pneumonia Abdomen soft nontender Vascular femorals are 1+ bilateral Patient had a blood culture and culture was taken from the incision site we will watch with you continue with antibiotic I will discuss with Dr. ODILIA Thompson Past Medical History Past Medical History: Coronary Artery Disease (CAD), Cancer, Chest Pain / Angina, COPD, Diabetes Mellitus, GERD/Reflux, Hyperlipidemia, Hypertension, Pneumonia Additional Past Medical History / Comment(s): came from [facility]- (rectal bleeding) and uti. kidney stone in past,constipation, arthritis in back, anemia,prostate cancer, hands shake at times, head inj/brain bleed 2015-no sx was needed. 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 Past Anesthesia/Blood Transfusion Reactions: No Reported Reaction Date of Last Stent Placement:: unk Past Psychological History: Depression Past Alcohol Use History: None Reported Past Drug Use History: None Reported - Past Family History Father Family Medical History: Cancer Mother Family Medical History: Myocardial Infarction ([place]) Medications and Allergies Home Medications Medication Instructions Recorded Confirmed Type Tamsulosin HCl [Flomax] 0.4 mg PO DAILY 11/28/15 02/03/24 History Aspirin EC [Ecotrin Low Dose] 81 mg PO HS 01/02/21 02/03/24 History Insulin Glargine,Hum.rec.anlog 20 unit SQ DAILY 01/02/21 02/03/24 History [Lantus Solostar Pen] Insulin Regular, Human [NovoLIN R] See Protocol SQ AC-TID PRN 01/02/21 02/03/24 History Losartan [Cozaar] 50 mg PO DAILY 01/02/21 02/03/24 History Metoprolol Tartrate [Lopressor] 25 mg PO BID 01/02/21 02/03/24 History Oxybutynin Chloride [oxyBUTYnin 10 mg PO DAILY 01/02/21 02/03/24 History chloride ER] Pravastatin Sodium [Pravachol] 40 mg PO DAILY 01/02/21 02/03/24 History Pantoprazole Sodium [Protonix] 40 mg PO BID 60 Days tab 01/04/21 02/03/24 Rx Bicalutamide 50 mg PO DAILY 02/03/24 02/03/24 History Furosemide [Lasix] 40 mg PO DAILY 02/03/24 02/03/24 History Latanoprost [Latanoprost 0.005%] 1 drop BOTH EYES HS 02/03/24 02/03/24 History Allergies Allergy/AdvReac Type Severity Reaction Status Date / Time No Known Allergies Allergy Verified 02/03/24 08:28 Surgical - Exam Vital Signs Temp Pulse Resp BP Pulse Ox 100.2 F H 106 H 26 H 128/68 97 02/02/24 23:20 02/02/24 23:20 02/02/24 23:20 02/02/24 23:20 02/02/24 23:20 Results - Labs 02/02/24 23:59 02/02/24 23:59 Abnormal Lab Results - Last 24 Hours (Table) 02/02/24 02/02/24 02/03/24 Range/Units 23:59 23:59 10:24 WBC 10.7 H (3.8-10.6) k/uL RBC 4.04 L (4.30-5.90) m/uL Hgb 10.6 L (13.0-17.5) gm/dL Hct 33.6 L (39.0-53.0) % RDW 15.9 H (11.5-15.5) % Neutrophils # (Manual) 9.70 H (1.3-7.7) k/uL Lymphocytes # (Manual) 0.75 L (1.0-4.8) k/uL Potassium 3.4 L (3.5-5.1) mmol/L Chloride 108 H (98-107) mmol/L Carbon Dioxide 19 L (22-30) mmol/L BUN 24 H (9-20) mg/dL Glucose 182 H (74-99) mg/dL POC Glucose (mg/dL) 142 H (70-110) mg/dL AST 123 H (17-59) U/L Creatine Kinase 4386 H* (55-170) U/L Total Protein 5.9 L (6.3-8.2) g/dL Albumin 3.3 L (3.5-5.0) g/dL 02/03/24 Range/Units 11:55 WBC (3.8-10.6) k/uL RBC (4.30-5.90) m/uL Hgb (13.0-17.5) gm/dL Hct (39.0-53.0) % RDW (11.5-15.5) % Neutrophils # (Manual) (1.3-7.7) k/uL Lymphocytes # (Manual) (1.0-4.8) k/uL Potassium (3.5-5.1) mmol/L Chloride (98-107) mmol/L Carbon Dioxide (22-30) mmol/L BUN (9-20) mg/dL Glucose (74-99) mg/dL POC Glucose (mg/dL) 132 H (70-110) mg/dL AST (17-59) U/L Creatine Kinase (55-170) U/L Total Protein (6.3-8.2) g/dL Albumin (3.5-5.0) g/dL Diabetes panel 02/02/24 Range/Units 23:59 Sodium 138 (137-145) mmol/L Potassium 3.4 L (3.5-5.1) mmol/L Chloride 108 H (98-107) mmol/L Carbon Dioxide 19 L (22-30) mmol/L BUN 24 H (9-20) mg/dL Creatinine 0.98 (0.66-1.25) mg/dL Glucose 182 H (74-99) mg/dL Calcium 8.9 (8.4-10.2) mg/dL AST 123 H (17-59) U/L ALT 33 (4-49) U/L Alkaline Phosphatase 64 (38-126) U/L Total Protein 5.9 L (6.3-8.2) g/dL Albumin 3.3 L (3.5-5.0) g/dL Calcium panel 02/02/24 Range/Units 23:59 Calcium 8.9 (8.4-10.2) mg/dL Albumin 3.3 L (3.5-5.0) g/dL Pituitary panel 02/02/24 Range/Units 23:59 Sodium 138 (137-145) mmol/L Potassium 3.4 L (3.5-5.1) mmol/L Chloride 108 H (98-107) mmol/L Carbon Dioxide 19 L (22-30) mmol/L BUN 24 H (9-20) mg/dL Creatinine 0.98 (0.66-1.25) mg/dL Glucose 182 H (74-99) mg/dL Calcium 8.9 (8.4-10.2) mg/dL Adrenal panel 02/02/24 Range/Units 23:59 Sodium 138 (137-145) mmol/L Potassium 3.4 L (3.5-5.1) mmol/L Chloride 108 H (98-107) mmol/L Carbon Dioxide 19 L (22-30) mmol/L BUN 24 H (9-20) mg/dL Creatinine 0.98 (0.66-1.25) mg/dL Glucose 182 H (74-99) mg/dL Calcium 8.9 (8.4-10.2) mg/dL Total Bilirubin 1.1 (0.2-1.3) mg/dL AST 123 H (17-59) U/L ALT 33 (4-49) U/L Alkaline Phosphatase 64 (38-126) U/L Total Protein 5.9 L (6.3-8.2) g/dL Albumin 3.3 L (3.5-5.0) g/dL
[2024-02-03 18:47] LABS: Glucose,Whole Blood 125 mg/dL (70-110)
[2024-02-03] MEDS: LATANOPROST 0.005% OPHTH DROPS 2.5 ML BTL BOTH EYES SCH (20:56)
[2024-02-03] MEDS: ASPIRIN 81 MG PO SCH (20:56)
[2024-02-03] MEDS: ACETAMINOPHEN TAB 325 MG TAB PO PRN (23:08)
[2024-02-04 07:56] LABS: Glucose,Whole Blood 116 mg/dL (70-110)
--- NOTE | 2024-02-04 09:06 | P.CONS ---
History of Present Illness - Reason for Consult Consult date: 02/03/24 Sepsis Requesting physician: Osvaldo Castro - Chief Complaint Shortness of breath and left chest wall wound drainage x days - History of Present Illness Patient is 83-year-old male with a past medical history significant for diabetes mellitus hypertension hyperlipidemia pneumonia coronary artery disease patient did have a left chest wall pacemaker placement at [facility] about a month ago patient subsequently has been admitted to that facility and did have a hematoma evacuated from the left chest wall however no culture was done and patient was not on antibiotics patient subsequently presenting to the outside facility after pending the patient has been found in the bathroom by the family patient may have been lying there for almost 23 hours patient was noticed to be febrile with concern for left lobe pneumonia and pacemaker infection patient was subsequently transferred to [facility] for further evaluation on presentation to the hospital he did have a fever 100.2 degrees warm right patient was tachycardic but not hypotensive. Will be hypoxic on 2 L nasal cannula oxygen patient did have white count of 10.7 with a left shift creatinine 0.98 CK4 386 patient was started on vancomycin and Rachel infectious disease was consulted for further management of antibiotic therapy, patient currently denies having any headache or URI symptoms did have some dull aching pain to the left chest wall and is some purulent drainage from the incision that apparently has been going on for the last few days as reported by the family at the bedside patient denies significant cough or sputum production no nausea no vomiting no abdominal pain no diarrhea patient did have a chest x-ray done at this facility with evidence of mild left effusion Review of Systems Positive point and negatives has been mentioned in the HPI, complete review of systems was performed and all other systems are negative Past Medical History Past Medical History: Coronary Artery Disease (CAD), Cancer, Chest Pain / Angina, COPD, Diabetes Mellitus, GERD/Reflux, Hyperlipidemia, Hypertension, Pneumonia Additional Past Medical History / Comment(s): [facility]) and uti. kidney stone in past,constipation, arthritis in ba ck, anemia,prostate cancer, hands shake at times, head inj/brain bleed 2016-no sx was needed. 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 Past Anesthesia/Blood Transfusion Reactions: No Reported Reaction Date of Last Stent Placement:: unk Past Psychological History: Depression Past Alcohol Use History: None Reported Past Drug Use History: None Reported - Past Family History Father Family Medical History: Cancer Mother Family Medical History: Myocardial Infarction ([place]) Medications and Allergies Home Medications Medication Instructions Recorded Confirmed Type Tamsulosin HCl [Flomax] 0.4 mg PO DAILY 11/28/15 02/03/24 History Aspirin EC [Ecotrin Low Dose] 81 mg PO HS 01/02/21 02/03/24 History Insulin Glargine,Hum.rec.anlog 20 unit SQ DAILY 01/02/21 02/03/24 History [Lantus Solostar Pen] Insulin Regular, Human [NovoLIN R] See Protocol SQ AC-TID PRN 01/02/21 02/03/24 History Losartan [Cozaar] 50 mg PO DAILY 01/02/21 02/03/24 History Metoprolol Tartrate [Lopressor] 25 mg PO BID 01/02/21 02/03/24 History Oxybutynin Chloride [oxyBUTYnin 10 mg PO DAILY 01/02/21 02/03/24 History chloride ER] Pravastatin Sodium [Pravachol] 40 mg PO DAILY 01/02/21 02/03/24 History Pantoprazole Sodium [Protonix] 40 mg PO BID 60 Days tab 01/04/21 02/03/24 Rx Bicalutamide 50 mg PO DAILY 02/03/24 02/03/24 History Furosemide [Lasix] 40 mg PO DAILY 02/03/24 02/03/24 History Latanoprost [Latanoprost 0.005%] 1 drop BOTH EYES HS 02/03/24 02/03/24 History Allergies Allergy/AdvReac Type Severity Reaction Status Date / Time No Known Allergies Allergy Verified 02/03/24 08:28 Physical Exam Vitals: Vital Signs Temp Pulse Resp BP Pulse Ox 02/03/24 10:26 86 18 127/63 100 02/03/24 09:01 98.2 F 85 18 120/61 99 02/03/24 06:09 92 20 125/62 99 02/03/24 03:37 99 18 120/62 99 02/03/24 02:36 99.5 F 102 H 24 114/87 96 02/03/24 00:47 100 24 115/60 98 02/02/24 23:20 100.2 F H 106 H 26 H 128/68 97 Intake and Output 02/02/24 02/03/24 02/03/24 22:59 06:59 14:59 Output Total 480 Balance -480 Output: Urine 480 Other: Weight 102.058 kg GENERAL DESCRIPTION: Elderly male lying in bed, no distress. No tachypnea or accessory muscle of respiration use. HEENT: Shows Pallor , no scleral icterus. Oral mucous membrane is dry. No pharyngeal erythema or thrush NECK: Trachea central, no thyromegaly. LUNGS: Unlabored breathing. Decreased breath sound the base HEART: S1, S2, regular rate and rhythm. Left chest wall pacemaker site did have purulent drainage which has been cultured ABDOMEN: Soft, no tenderness , guarding or rigidity, no organomegaly EXTREMITIES: No edema of feet. SKIN: No rash, no masses palpable. NEUROLOGICAL: The patient is awake, alert, oriented x3, mood and affect normal. Results CBC & Chem 7: 02/02/24 23:59 02/02/24 23:59 Labs: Abnormal Lab Results - Last 24 Hours (Table) 02/02/24 02/02/24 02/03/24 Range/Units 23:59 23:59 10:24 WBC 10.7 H (3.8-10.6) k/uL RBC 4.04 L (4.30-5.90) m/uL Hgb 10.6 L (13.0-17.5) gm/dL Hct 33.6 L (39.0-53.0) % RDW 15.9 H (11.5-15.5) % Neutrophils # (Manual) 9.70 H (1.3-7.7) k/uL Lymphocytes # (Manual) 0.75 L (1.0-4.8) k/uL Potassium 3.4 L (3.5-5.1) mmol/L Chloride 108 H (98-107) mmol/L Carbon Dioxide 19 L (22-30) mmol/L BUN 24 H (9-20) mg/dL Glucose 182 H (74-99) mg/dL POC Glucose (mg/dL) 142 H (70-110) mg/dL AST 123 H (17-59) U/L Creatine Kinase 4386 H* (55-170) U/L Total Protein 5.9 L (6.3-8.2) g/dL Albumin 3.3 L (3.5-5.0) g/dL Assessment and Plan (1) Abscess of chest wall Current Visit: Yes Status: Acute Code(s): L02.213 - CUTANEOUS ABSCESS OF CHEST WALL SNOMED Code(s): 89329242 (2) Sepsis Current Visit: Yes Status: Acute Code(s): A41.9 - SEPSIS, UNSPECIFIED ORGANISM SNOMED Code(s): 69049128 Plan: 1patient presented to hospital with sepsis in this patient who did have fever tachycardia source is likely left chest wall abscess at the site of recent pacemaker placement in this patient who did have hematoma evacuation few weeks ago however no cultures were done at that time we will need to cover for gram- positive skin anup such as MRSA to the likely pathogen gram-negative infection less likely but not entirely excluded 2blood culture has been requested to make sure no evidence of any bacteremia associated with this infection. Local culture has been obtained at the bedside today 3we will continue patient on vancomycin pharmacy to dose or watching his kidney function closely however switch Zosyn to cefepime to decrease risk of nephrotoxicity 4await surgical evaluation for possible I&D of this abscess however if stepping down to the pacemaker the pacemaker will have to come out after completely healed this infection We will follow on clinical condition and cultures to further adjust medication if needed Family at the bedside multiple question concern answered Thank you for this consultation we will follow the patient along with you Dictation was produced using [employer] dictation software. please excuse any grammatical, word or spelling errors. Time with Patient: Greater than 30
[2024-02-04 09:13] LABS: Anisocytosis Slight; HCT 32.7 % (39.0-53.0); HGB 10.3 gm/dL (13.0-17.5); Hypochromasia Moderate; MCH 26.2 pg (25.0-35.0); MCHC 31.6 g/dL (31.0-37.0); Mean Platelet Volume 8.8; RBC 3.95 m/uL (4.30-5.90); WBC 8.4 k/uL (3.8-10.6)
[2024-02-04 09:34] LABS: Eosinophils # (M) 0.08 k/uL (0-0.7); Lymphocytes # (M) 0.67 k/uL (1.0-4.8); Monocytes # (M) 0.42 k/uL (0-1.0); Neutrophils # (M) 7.22 k/uL (1.3-7.7); Neutrophils % (M) 86 %; Nucleated Red Blood Cells 0 /100 WBC (0-0); Total Cells Counted 100; Toxic Vacuolation Present
[2024-02-04 09:36] LABS: Platelet Count 144 k/uL (150-450); Poikilocytosis (M) Present
--- NOTE | 2024-02-04 09:54 | P.CRDCN ---
History of Present Illness Consult date: 02/04/24 Reason for Consult (text): Infected pacemaker History of present illness: This is an 83-year-old male patient of Dr. Maddy Obrien with past medical history of permanent pacemaker implantation for bradycardia which was complicated by hematoma at the pacer site and subsequently underwent drainage of the hematoma. Also history of coronary artery disease with previous stent to the RCA in 2009, hypertension, dyslipidemia, diabetes mellitus insulin requiring, COPD, gastroesophageal reflux disease, benign prostatic hypertrophy.. We have been asked to evaluate the patient for infected pacemaker. Patient had a [employer] dual-chamber permanent pacemaker implantation done at [facility] on 01/07/2024 for high-grade AV block with symptoms of dizziness and lightheadedness. He subsequently had hematoma I&D with Dr. Dominguez. Patient was last seen in the office on 01/25/2024 and at that time there were no fluid accumulation and pacemaker has been checked and functioning normally. Patient apparently was found in the bathroom by his family and went to [facility] and subsequently transferred to [facility]. He had a chest x-ray done at [place] that showed a left lobe pneumonia. Patient presented with altered mental status fall and sepsis. Time on the floor was approximately 23 hours. Temperature max was 103. Patient was started on Zosyn and vancomycin before transfer. Patient is unable to recall what happened at home. He currently denies having any chest pain no shortness of breath, no palpitations, no lightheadedness or dizziness, no previous syncopal episodes, no blood in his stool or urine, no history of stroke or seizure. Blood pressure 137/89, heart rate 87, pulse ox 98% on room air, temperature max 100.2. Patient has been seen by infectious disease and antibiotic switched to cefepime and vancomycin. Patient has also been seen by Dr. Dominguez. A pacemaker wound culture has been obtained. EKG: Sinus rhythm with first-degree block, IVCD Chest x-ray: Mild left pleural effusion Laboratory studies: WBC 10.7, hemoglobin 10.6, platelet count 156. Sodium 138, potassium 3.4, chloride 108, CO2 19 BUN 24 creatinine 0.98. CK 4386 Home cardiac medications: Aspirin 81 mg daily, Lasix 40 mg daily, losartan 50 mg daily, Lopressor 25 mg twice daily, pravastatin 40 mg daily. Lexiscan Cardiolite stress test performed in the office on 05/30/2022 revealed negative stress test by EKG criteria. Abnormal nuclear scan showing fixed apical thinning. Mild LV systolic dysfunction without ischemia. Echocardiogram performed 11/29/2015 revealed EF of 60 to 65%, mild tricuspid regurgitation, mild pulmonary hypertension, moderate concentric left ventricular hypertrophy, mild aortic valve sclerosis without stenosis, mild mitral annular calcification. Cardiac catheterization history in 2009 stent to the RCA Review Of Systems: At the time of my exam: CONSTITUTIONAL: Reports fever or chills. Reports generalized weakness HEENT: Denies blurred vision, vision changes, or eye pain. Denies hemoptysis CARDIOVASCULAR: Denies chest pain. Denies orthopnea. Denies PND. Denies palpitations RESPIRATORY: Denies shortness of breath. GASTROINTESTINAL: Denies abdominal pain. Denies nausea or vomiting. HEMATOLOGIC: Denies bleeding disorders. GENITOURINARY: Denies any blood in urine. SKIN: Denies puritis. Denies rash. Physical examination: Gen: This is an 83-year-old male in no acute distress VS: reviewed HEENT: Head is atraumatic, normocephalic. Pupils equal, round. Sclerae is anicteric. NECK: Supple. No JVD. LUNGS: Clear to auscultation. No wheezes or rhonchi. No intercostal retractions. HEART: Regular rate and rhythm. No murmur. Pacemaker site to the left anterior chest wall reveals a serosanguineous drainage, no erythema, no edema. ABDOMEN: Soft No tenderness. EXTREMITIES: No pedal edema. No calf tenderness. NEUROLOGICAL: Patient is awake, alert and oriented x3. Assessment: Metabolic encephalopathy Rhabdomyolysis Sepsis with possible pneumonia Possible pacemaker site infection Coronary artery disease with previous stent to the RCA in 2009 Hypertension Hyperlipidemia Diabetes mellitus type 2 insulin requiring COPD Remote history of tobacco use History of prostate cancer Plan: Resume patient's home cardiac medications Continue IV antibiotics per ID Obtain 2-D echocardiogram and Doppler study to assess cardiac structure and function Repeat CBC in the morning Further recommendations to follow based upon clinical course Thank you kindly for this consultation. Nurse practitioner note has been reviewed, I agree with documented findings and plan of care. Patient was seen and examined. Past Medical History Past Medical History: Coronary Artery Disease (CAD), Cancer, Chest Pain / Angina, COPD, Diabetes Mellitus, GERD/Reflux, Hyperlipidemia, Hypertension, Pneumonia Additional Past Medical History / Comment(s): came [facility]- (rectal bleeding) and uti. kidney stone in past,constipation, arthritis in back, anemia,prostate cancer, hands shake at times, head inj/brain bleed 2016-no sx was needed. 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 Past Anesthesia/Blood Transfusion Reactions: No Reported Reaction Date of Last Stent Placement:: unk Past Psychological History: Depression Past Alcohol Use History: None Reported Past Drug Use History: None Reported - Past Family History Father Family Medical History: Cancer Mother Family Medical History: Myocardial Infarction ([place]) Medications and Allergies Home Medications Medication Instructions Recorded Confirmed Type Tamsulosin HCl [Flomax] 0.4 mg PO DAILY 11/28/15 02/03/24 History Aspirin EC [Ecotrin Low Dose] 81 mg PO HS 01/02/21 02/03/24 History Insulin Glargine,Hum.rec.anlog 20 unit SQ DAILY 01/02/21 02/03/24 History [Lantus Solostar Pen] Insulin Regular, Human [NovoLIN R] See Protocol SQ AC-TID PRN 01/02/21 02/03/24 History Losartan [Cozaar] 50 mg PO DAILY 01/02/21 02/03/24 History Metoprolol Tartrate [Lopressor] 25 mg PO BID 01/02/21 02/03/24 History Oxybutynin Chloride [oxyBUTYnin 10 mg PO DAILY 01/02/21 02/03/24 History chloride ER] Pravastatin Sodium [Pravachol] 40 mg PO DAILY 01/02/21 02/03/24 History Pantoprazole Sodium [Protonix] 40 mg PO BID 60 Days tab 01/04/21 02/03/24 Rx Bicalutamide 50 mg PO DAILY 02/03/24 02/03/24 History Furosemide [Lasix] 40 mg PO DAILY 02/03/24 02/03/24 History Latanoprost [Latanoprost 0.005%] 1 drop BOTH EYES HS 02/03/24 02/03/24 History Allergies Allergy/AdvReac Type Severity Reaction Status Date / Time No Known Allergies Allergy Verified 02/03/24 08:28 Physical Exam Vitals: Vital Signs Temp Pulse Resp BP Pulse Ox 02/04/24 07:23 87 18 137/89 98 02/04/24 06:14 81 20 150/91 98 02/04/24 05:17 78 18 142/78 99 02/04/24 04:18 76 18 125/76 97 02/04/24 02:46 72 18 124/65 97 02/04/24 00:26 79 22 118/74 95 02/03/24 23:15 75 16 118/70 97 02/03/24 20:00 92 21 139/70 99 02/03/24 19:51 91 20 02/03/24 19:44 86 20 02/03/24 18:42 80 20 132/64 100 02/03/24 14:24 98.0 F 76 24 132/73 94 L 02/03/24 12:00 79 20 114/79 02/03/24 10:26 86 18 127/63 100 02/03/24 09:01 98.2 F 85 18 120/61 99 Intake and Output 02/03/24 02/04/24 02/04/24 22:59 06:59 14:59 Intake Total 600 Output Total 300 600 Balance 300 -600 Intake: Intake, IV Titration 600 Amount Piperacillin-Tazobactam 3 100 .375 gm In Sodium Chloride 0.9% 100 ml @ 25 mls/hr IVPB Q8H [facility] Rx#: [id number] Vancomycin 1,500 mg In 500 Sodium Chloride 0.9% 500 ml 500 ml @ 167 mls/hr IVPB Q16H [facility] Rx#: [id number] Output: Urine 300 600 Results 02/04/24 08:33 02/02/24 23:59 Current Medications Generic Name Dose Route Start Last Admin Trade Name Freq PRN Reason Stop Dose Admin Acetaminophen 650 mg 02/02/24 23:56 02/03/24 23:08 Acetaminophen Tab 325 Mg Tab PO 650 mg Q6HR PRN Administration Mild Pain or Fever > 100.5 Albuterol/Ipratropium 3 ml 02/03/24 16:00 02/03/24 19:44 Ipratropium-Albuterol 3 Ml Neb INHALATION 3 ml RT-QID SUSAN Administration Aspirin 81 mg 02/03/24 21:00 02/03/24 20:56 Aspirin 81 Mg PO 81 mg HS SUSAN Administration Bicalutamide 50 mg 02/03/24 10:00 02/03/24 10:37 Bicalutamide 50 Mg Tab PO 50 mg DAILY SUSAN Administration Dextrose/Water 25 ml 02/03/24 14:37 Dextrose 50% Syringe 50 Ml IVP PER PROTOCOL PRN Hypoglycemia Protocol Dextrose/Water 50 ml 02/03/24 14:37 Dextrose 50% Syringe 50 Ml IVP PER PROTOCOL PRN Hypoglycemia Protocol Enoxaparin Sodium 40 mg 02/03/24 10:00 02/04/24 07:28 Enoxaparin 40 Mg/0.4 Ml Syringe SQ 40 mg DAILY SUSAN Administration Sodium Chloride 1,000 mls @ 130 mls/hr 02/02/24 23:45 02/04/24 05:36 Saline 0.9% IV Not Given .[id number] SUSAN Vancomycin HCl 1,500 mg/ 500 mls @ 167 mls/hr 02/03/24 09:00 02/04/24 02:15 Sodium Chloride IVPB 167 mls/hr Q16H SUSAN Administration Cefepime HCl 2 gm/ Sodium 100 mls @ 25 mls/hr 02/03/24 16:00 02/04/24 07:27 Chloride IVPB 25 mls/hr Q8HR SUSAN Administration Protocol Insulin Aspart 0 unit 02/03/24 09:56 02/03/24 18:57 Insulin Aspart (Novolog) 100 Unit/Ml Vial SQ Not Given AC-TID [facility] Protocol Insulin Detemir 16 unit 02/03/24 10:00 02/03/24 11:05 Insulin Detemir (Levemir) 100 Unit/Ml Syr SQ Not Given DAILY@0700 SUSAN Latanoprost 1 drops 02/03/24 21:00 02/03/24 20:56 Latanoprost 0.005% Ophth Drops 2.5 Ml Btl BOTH EYES 1 drops HS SUSAN Administration Metoprolol Tartrate 25 mg 02/03/24 10:00 02/04/24 07:28 Metoprolol Tartrate 25 Mg Tab PO 25 mg BID SUSAN Administration Naloxone HCl 0.2 mg 02/02/24 23:56 Naloxone 0.4 Mg/Ml 1 Ml Vial IV Q2M PRN Opioid Reversal Ondansetron HCl 4 mg 02/02/24 23:56 Ondansetron 4 Mg/2 Ml Vial IVP Q8HR PRN Nausea And Vomiting Oxybutynin Chloride 10 mg 02/03/24 10:00 02/03/24 10:28 Oxybutynin 10 Mg Tab.Er.24 PO 10 mg DAILY SUSAN Administration Pantoprazole Sodium 40 mg 02/03/24 10:00 02/04/24 07:28 Pantoprazole 40 Mg Tablet PO 40 mg AC-BID SUSAN Administration Pravastatin Sodium 40 mg 02/03/24 10:00 02/03/24 10:29 Pravastatin Sodium 40 Mg Tab PO 40 mg DAILY SUSAN Administration Tamsulosin HCl 0.4 mg 02/03/24 10:00 02/04/24 07:28 Tamsulosin 0.4 Mg Cap.Er.24h PO 0.4 mg DAILY SUSAN Administration Intake and Output 02/03/24 02/04/24 02/04/24 22:59 06:59 14:59 Intake Total 600 Output Total 300 600 Balance 300 -600 Intake: Intake, IV Titration 600 Amount Piperacillin-Tazobactam 3 100 .375 gm In Sodium Chloride 0.9% 100 ml @ 25 mls/hr IVPB Q8H [facility] Rx#: [id number] Vancomycin 1,500 mg In 500 Sodium Chloride 0.9% 500 ml 500 ml @ 167 mls/hr IVPB Q16H [facility] Rx#: [id number] Output: Urine 300 600 02/02/24 23:59 02/02/24 23:59
[2024-02-04 12:09] LABS: Glucose,Whole Blood 163 mg/dL (70-110)
[2024-02-04 12:43] LABS: African American GFR (CKD) >90 (>60 ml/min/1.73 sqM); Anion Gap 3 mmol/L; Blood Urea Nitrogen 23 mg/dL (9-20); Calcium 8.6 mg/dL (8.4-10.2); Carbon Dioxide 20 mmol/L (22-30); Chloride 114 mmol/L (98-107); Glucose 158 mg/dL (74-99); Non-African American GFR(CKD) 89 (>60 ml/min/1.73 sqM); Potassium 3.3 mmol/L (3.5-5.1); Sodium 137 mmol/L (137-145)
[2024-02-04 13:06] LABS: Creatine Kinase 1514 U/L (55-170)
[2024-02-04] MEDS: ACETAMINOPHEN TAB 500 MG TAB PO PRN (13:53)
--- NOTE | 2024-02-04 15:40 | P.PN ---
Subjective Progress Note Date: 02/04/24 Principal diagnosis: Reason for follow-up is MRSA bacteremia and left chest wall abscess cellulitis Patient is 83-year-old male with a past medical history significant f or diabetes mellitus hypertension hyperlipidemia pneumonia coronary artery disease patient did have a left chest wall pacemaker placement at [facility] subsequently did have a hematoma evacuation by vascular surgery now has been transferred from outside facility with the patient presented with a fever weakness and there was drainage from his left chest wall pacemaker site. On today's evaluation that is 02/04/2024, the patient did have resolution of his fever and is afebrile this morning, the patient is on room air and breathing comfortably, the Pt denies having any chest pain to the left chest wall and no significant cough, the patient denies having any abdominal pain no vomiting or any diarrhea has been reported by the nursing staff. Patient white count is down to 8.4, creatinine 0.68 CK is down to 1514 blood culture positive with MRSA Objective - Vital Signs Vital signs: Vital Signs Temp 98.0 F 02/03/24 14:24 Pulse 65 02/04/24 11:00 Resp 24 02/04/24 11:00 BP 120/70 02/04/24 11:00 Pulse Ox 98 02/04/24 11:00 FiO2 Intake & Output 02/03/24 02/04/24 02/04/24 18:59 06:59 18:59 Intake Total 600 Output Total 480 300 600 Balance -480 300 -600 Intake: Intake, IV Titration 600 Amount Piperacillin-Tazobactam 3 100 .375 gm In Sodium Chloride 0.9% 100 ml @ 25 mls/hr IVPB Q8H SUSAN Rx#: [id number] Vancomycin 1,500 mg In 500 Sodium Chloride 0.9% 500 ml 500 ml @ 167 mls/hr IVPB Q16H SUSAN Rx#: [id number] Output: Urine 480 300 600 - Exam GENERAL DESCRIPTION: An elderly male lying in bed in no distress RESPIRATORY SYSTEM: Unlabored breathing , decreased breath sounds at bases HEART: S1 S2 regular rate and rhythm , left chest wall redness slightly decreased ABDOMEN: Soft , no tenderness EXTREMITIES: No edema feet - Labs CBC & Chem 7: 02/04/24 08:33 02/04/24 12:27 Labs: Abnormal Lab Results - Last 24 Hours (Table) 02/03/24 02/04/2424 Range/Units 18:45 07:52 08:33 RBC 3.95 L (4.30-5.90) m/uL Hgb 10.3 L (13.0-17.5) gm/dL Hct 32.7 L (39.0-53.0) % RDW 16.0 H (11.5-15.5) % Plt Count 144 L (150-450) k/uL Lymphocytes # (Manual) 0.67 L (1.0-4.8) k/uL POC Glucose (mg/dL) 125 H 116 H (70-110) mg/dL 02/04/24 Range/Units 12:06 RBC (4.30-5.90) m/uL Hgb (13.0-17.5) gm/dL Hct (39.0-53.0) % RDW (11.5-15.5) % Plt Count (150-450) k/uL Lymphocytes # (Manual) (1.0-4.8) k/uL POC Glucose (mg/dL) 163 H (70-110) mg/dL Microbiology - Last 24 Hours (Table) 02/03/24 12:16 Gram Stain - Preliminary Chest 02/03/24 11:21 Blood Culture Gram Stain - Preliminary Blood Blood Culture - Preliminary Molecular ID Assessment and Plan (1) Abscess of chest wall Current Visit: Yes Status: Acute Code(s): L02.213 - CUTANEOUS ABSCESS OF CHEST WALL SNOMED Code(s): 14799200 (2) Sepsis Current Visit: Yes Status: Acute Code(s): A41.9 - SEPSIS, UNSPECIFIED ORGANISM SNOMED Code(s): 00637523 (3) MRSA bacteremia Current Visit: Yes Status: Acute Code(s): R78.81 - BACTEREMIA; B95.62 - METHICILLIN RESIS STAPH INFCT CAUSING DISEASES [facility] SNOMED Code(s): 89779849780834542 Plan: 1patient presented to hospital with sepsis in this patient who did have fever tachycardia source is likely left chest wall abscess at the site of recent pacemaker placement in this patient who did have hematoma evacuation few weeks ago however no cultures were done at that time we will need to cover for gram- positive skin anup such as MRSA to the likely pathogen gram-negative infection less likely but not entirely excluded 2blood culture are currently growing MRSA likely related to his left chest wall abscess cellulitis local culture currently pending, blood cultures will be repeat document clearance of bacteremia 3-patient to continue with vancomycin pharmacy to dose however discontinue cefepime, family the bedside have multiple question concerns those has been answered awaiting vascular surgery exploration of that area to see the depth of infection and if the pacemaker is in wall will need extraction of the pacemaker. In order to completely heal of this infection, if the patient is present to be high risk for pacemaker extraction suppressive antibiotic therapy is an option this has been explained to the patient in layman term and multiple question concern answered Dictation was produced using [employer] dictation software. please excuse any grammatical, word or spelling errors. Time with Patient: Greater than 30
[2024-02-04 16:16] LABS: Glucose,Whole Blood 155 mg/dL (70-110)
[2024-02-04 16:43] LABS: % Iron Saturation 4.35 (15.00-50.00)
[2024-02-04] MEDS: VANCOMYCIN 1,500 MG in SODIUM CHLORIDE 0.9% 500 ML 500 ML IVPB SCH (16:50)
--- NOTE | 2024-02-04 17:15 | P.PN ---
Progress Note - Text Progress Note Date: 02/04/24 Chief Complaint: Found on the floor This is a pleasant 83-year-old patient, follows with APPLIED BEHAVIOR SCIENCE SPECIALIST Chacha Frank, with Dr. Matthews. Most of the history is obtained by patient's son Masoud who is also the POA at the bedside. About 2 weeks ago patient had a permanent pacemaker placed at [facility]. Patient is being home. Does use a walker. Lives alone. Son and his checking every night to make a meal for him. When they came in yesterday evening the patient was found on the bathroom. Patient had good been there for several hours. Patient does not remember what happened. The pacemaker site look infected. He was taken to [facility]. Diagnosed with pneumonia and sent down here. Patient does not remember the details of what happened. Patient's got some shortness of breath. Slight cough. February 03: Patient's son and [id number] at the bedside. Patient had a permanent pacemaker placed [address] ODILIA Thompson along with Dr. Gabby Dominguez 2 weeks ago at [facility]. Patient did develop a hematoma about a week ago. That was evacuated by Dr. Dominguez. Yesterday Dr. Beck from [place] drained some pus from the area. He spoke to the family today about deep infection long-term antibiotics versus possible replacement of the pacemaker. Cardiology is following. They will take a decision about the same. Some local pain. Ice pack Tylenol ordered. Eating some. Active Medications Acetaminophen (Acetaminophen Tab 500 Mg Tab) 500 mg PO Q4HR PRN PRN Reason: Fever and/ or Pain Last Admin: 02/04/24 13:53 Dose: 500 mg Albuterol/Ipratropium (Ipratropium-Albuterol 3 Ml Neb) 3 ml INHALATION RT-QID [facility] Last Admin: 02/04/24 13:01 Dose: Not Given Aspirin (Aspirin 81 Mg) 81 mg PO HS [facility] Last Admin: 02/03/24 20:56 Dose: 81 mg Bicalutamide (Bicalutamide 50 Mg Tab) 50 mg PO DAILY [facility] Last Admin: 02/04/24 07:54 Dose: 50 mg Dextrose/Water (Dextrose 50% Syringe 50 Ml) 25 ml IVP PER PROTOCOL PRN; Protocol PRN Reason: Hypoglycemia Dextrose/Water (Dextrose 50% Syringe 50 Ml) 50 ml IVP PER PROTOCOL PRN; Protocol PRN Reason: Hypoglycemia Enoxaparin Sodium (Enoxaparin 40 Mg/0.4 Ml Syringe) 40 mg SQ DAILY [facility] Last Admin: 02/04/24 07:28 Dose: 40 mg Sodium Chloride (Saline 0.9%) 1,000 mls @ 130 mls/hr IV .Q7H42M [facility] Last Admin: 02/04/24 09:36 Dose: 130 mls/hr Vancomycin HCl 1,500 mg/ (Sodium Chloride) 500 mls @ 167 mls/hr IVPB Q12H [facility] Last Admin: 02/04/24 16:50 Dose: 167 mls/hr Insulin Aspart (Insulin Aspart (Novolog) 100 Unit/Ml Vial) 0 unit SQ AC-TID [facility]; Protocol Last Admin: 02/04/24 16:50 Dose: 2 unit Insulin Detemir (Insulin Detemir (Levemir) 100 Unit/Ml Syr) 16 unit SQ DAILY@0700 [facility] Last Admin: 02/04/24 08:13 Dose: 16 unit Latanoprost (Latanoprost 0.005% Ophth Drops 2.5 Ml Btl) 1 drops BOTH EYES HS [facility] Last Admin: 02/03/24 20:56 Dose: 1 drops Metoprolol Tartrate (Metoprolol Tartrate 25 Mg Tab) 25 mg PO BID [facility] Last Admin: 02/04/24 07:28 Dose: 25 mg Naloxone HCl (Naloxone 0.4 Mg/Ml 1 Ml Vial) 0.2 mg IV Q2M PRN PRN Reason: Opioid Reversal Ondansetron HCl (Ondansetron 4 Mg/2 Ml Vial) 4 mg IVP Q8HR PRN PRN Reason: Nausea And Vomiting Oxybutynin Chloride (Oxybutynin 10 Mg Tab.Er.24) 10 mg PO DAILY [facility] Last Admin: 02/04/24 07:53 Dose: 10 mg Pantoprazole Sodium (Pantoprazole 40 Mg Tablet) 40 mg PO AC-BID [facility] Last Admin: 02/04/24 16:50 Dose: 40 mg Pravastatin Sodium (Pravastatin Sodium 40 Mg Tab) 40 mg PO DAILY [facility] Last Admin: 02/04/24 09:33 Dose: 40 mg Tamsulosin HCl (Tamsulosin 0.4 Mg Cap.Er.24h) 0.4 mg PO DAILY [facility] Last Admin: 02/04/24 07:28 Dose: 0.4 mg Social history: Lives alone. Does use a walker. Smoked 2 to 3 packs a day for close to 60 years stopped about 10 years ago. 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 Patient son Osvaldo is the POA Physical examination: VITAL SIGNS: 98.2, 77, 20, 129 x 78, 99% on 3 L GENERAL: BMI 34.2, reclining in bed tired EYES: Pupils equal. Conjunctiva shakira l. HEENT: External appearance of nose and ears normal, oral cavity grossly normal. Decreased hearing NECK: JVD unable to assess; masses not palpable. HEART: First and second heart sounds are normal; no edema. LUNGS: Respiratory rate increased; diminished breath sounds. ABDOMEN: Soft, nontender, liver spleen not palpable, no masses palpable. PSYCH: Patient is awake, able to answer simple questions. Not able to tell what happened at home. CHEST wall: Evidence of infection, left infraclavicular area over the pacemaker MUSCULOSKELETAL:No Clubbing/cyanosis;muscles-grossly intact. OA INVESTIGATIONS, reviewed in the clinical context: February 03: White count 8.4 hemoglobin 10.3 platelets 144 potassium 3.3 BUN 23 creatinine 0.68 CPK 1514 iron 11 TIBC 253% saturation 4.35 transferrin 181 ferritin 325 B12 731 folate 16.7 February 02, 2024: White count 10.7 globin 10.6 platelets 156 sodium 138 potassium 3.4 bicarb 19 BUN 24 creatinine 0.98 CPK 4386 EKG tracing personally reviewed by me-very short UT interval. Intraventricular delay. Chest x-ray film personally reviewed by me-left lower lobe infiltrate Assessment plan: -Acute metabolic encephalopathy, with the patient confused was found on the floor. Likely from underlying infection from pneumonia: Some improvement -Infected site permanent pacemaker placed 2 weeks ago at [facility]. Hematoma was evacuated about a week ago by Dr. Dominguez. Some pus was drained by Dr. Beck yesterday. Cultures pending. IV vancomycin -Chronic gait dysfunction, uses a walker at baseline -Moderate cognitive impairment -BPH Flomax 0.4 mg a day, oxybutynin -Hypercholesteremia Pravachol 40 mg a day -CAD with prior history of stent Aspirin. Beta-keiry. Protocol. -Normocytic anemia Check B12 folate, iron studies -Prostate cancer, history bicalutamide -GERD Protonix 40 mg twice daily -Diabetes mellitus type 2, chronically on insulin Lantus 16 units a day. Diabetic diet. Follow Accu-Cheks with sliding scale insulin -Essential hypertension Lopressor. Cozaar. -Permanent pacemaker -DNR -Power of lead etl developer, son Osvaldo Spoke to ID, Dr. Barton from cardiology. Also spoke to the son and [id number] at the bedside. Antibiotics per ID. Past Medical History Past Medical History: Coronary Artery Disease (CAD), Cancer, Chest Pain / Angina, COPD, Diabetes Mellitus, GERD/Reflux, Hyperlipidemia, Hypertension, Pneumonia Additional Past Medical History / Comment(s): came from [facility]- (rectal bleeding) and uti. kidney stone in past,constipation, arthritis in back, anemia,prostate cancer, hands shake at times, head inj/brain bleed 2016-no sx was needed. History of Any Multi-Drug Resistant Organisms: None Reported Past Surgical History: Appendectomy, Heart Catheterization With Stent Additional Past Surgical History / Comment(s): orif rt ankle(metal inpalce), era cataracts, 2 cardiac stents to prox [id number] Past Anesthesia/Blood Transfusion Reactions: No Reported Reaction Date of Last Stent Placement:: unk Past Psychological History: Depression Past Alcohol Use History: None Reported Past Drug Use History: None Reported
[2024-02-04] MEDS: POTASSIUM CHLORIDE ER 20 MEQ TAB.ER PO STA (17:57)
--- NOTE | 2024-02-04 19:24 | CA ---
Transthoracic Echo Report Name: Keshav Melton Age: 83 Gender: M : 1940 Exam Date: 02/04/2024 11:10 Exam Location: [place] [facility] Ht (in): 68 Wt (lb): 225 Ordering Physician: Mary Beth Pritchett Attending/Referring Phys: [id number], Shreyas Child Support Investigator Yarelis Moody RDCS Procedure CPT: Indications: LVF Cardiac Hx: Technical Quality: Fair Contrast 1: Total Dose (mL): Contrast 2: Total Dose (mL): MEASUREMENTS (Male / Female) Normal Values 2D ECHO LV Diastolic Diameter PLAX 5.5 cm 4.2 - 5.9 / 3.9 - 5.3 cm LV Systolic Diameter PLAX 4.6 cm IVS Diastolic Thickness 1.5 cm 0.6 - 1.0 / 0.6 - 0.9 cm LVPW Diastolic Thickness 1.7 cm 0.6 - 1.0 / 0.6 - 0.9 cm LV Relative Wall Thickness 0.6 RV Internal Dim ED PLAX 4.3 cm M-MODE Aortic Root Diameter MM 3.7 cm LA Systolic Diameter MM 6.0 cm LA Ao Ratio MM 1.6 AV Cusp Separation MM 2.1 cm DOPPLER AV Peak Velocity 91.3 cm/s AV Peak Gradient 3.3 mmHg AV Mean Velocity 55.0 cm/s AV Mean Gradient 1.4 mmHg AV Velocity Time Integral 16.1 cm LVOT Peak Velocity 68.7 cm/s LVOT Peak Gradient 1.9 mmHg LVOT Velocity Time Integral 14.0 cm MV Area PHT 4.9 cm??? Mitral E Point Velocity 68.0 cm/s Mitral A Point Velocity 93.1 cm/s Mitral E to A Ratio 0.7 MV Deceleration Time 154.6 ms TR Peak Velocity 235.7 cm/s TR Peak Gradient 22.2 mmHg Right Ventricular Systolic Press 25.6 mmHg FINDINGS Left Ventricle Moderately increased left ventricular wall thickness. Left ventricular cavity size normal. Mildly reduced global left ventricular systolic function. Left ventricular ejection fraction is estimated at 45-50 %. Right Ventricle Right ventricular dilatation. Right ventricular systolic pressure within normal limits. Right Atrium Right atrial dilatation. Catheter/pacemaker wire in the right atrial cavity. Left Atrium Mildly increased left atrial area. Mitral Valve Structurally normal mitral valve. Mitral valve thickened. Mild mitral annular calcification. Aortic Valve No aortic valve stenosis or regurgitation. Tricuspid Valve Structurally normal tricuspid valve. Moderate tricuspid regurgitation. Pulmonic Valve Pulmonic valve not well visualized. Pericardium No pericardial effusion. Aorta Normal size aortic root and proximal ascending aorta. CONCLUSIONS Diagnosis: CAD, coronary stenting, hypertension, abnormal cardiac enzyme, Increased LV mass with mildly reduced LV systolic function ejection fraction 45% Enlarged right ventricle Biatrial enlargement Lead in right atrium Previewed by: Dr. Kendell Hall MD (Electronically Signed) Final Date: 04 February 2024 19:22
[2024-02-04 20:13] LABS: Glucose,Whole Blood 191 mg/dL (70-110)
[2024-02-05] MEDS ORDERED: ACETAMINOPHEN TAB 500 MG TAB ONE (04:20)
[2024-02-05 06:12] LABS: Glucose,Whole Blood 197 mg/dL (70-110)
[2024-02-05 09:32] LABS: Anisocytosis Slight; HCT 33.3 % (39.0-53.0); HGB 10.2 gm/dL (13.0-17.5); Hypochromasia Marked; MCH 26.5 pg (25.0-35.0); MCHC 30.8 g/dL (31.0-37.0); MCV 86.2 fL (80.0-100.0); Mean Platelet Volume 8.8; Platelet Count 136 k/uL (150-450); RBC 3.87 m/uL (4.30-5.90); RDW 16.3 % (11.5-15.5); WBC 8.8 k/uL (3.8-10.6)
[2024-02-05 10:31] LABS: African American GFR (CKD) >90 (>60 ml/min/1.73 sqM); Non-African American GFR(CKD) >90 (>60 ml/min/1.73 sqM)
[2024-02-05 11:44] LABS: Glucose,Whole Blood 155 mg/dL (70-110)
--- NOTE | 2024-02-05 12:17 | P.PN ---
Subjective Progress Note Date: 02/05/24 Reason for Consult (text): Infected pacemaker History of present illness: This is an 83-year-old male patient of Dr. Maddy Obrien with past medical history of permanent pacemaker implantation for bradycardia which was complicated by hematoma at the pacer site and subsequently underwent drainage of the hematoma. Also history of coronary artery disease with previous stent to the RCA in 2009, hypertension, dyslipidemia, diabetes mellitus insulin requiring, COPD, gastroesophageal reflux disease, benign prostatic hypertrophy.. We have been asked to evaluate the patient for infected pacemaker. Patient had a [employer] dual-chamber permanent pacemaker implantation done at [facility] on 01/07/2024 for high-grade AV block with symptoms of dizziness and lightheadedness. He subsequently had hematoma I&D with Dr. Dominguez. Patient was last seen in the office on 01/25/2024 and at that time there were no fluid accumulation and pacemaker has been checked and functioning normally. Patient apparently was found in the bathroom by his family and went to [facility] and subsequently transferred to [facility]. He had a chest x-ray done at [facility] that showed a left lobe pneumonia. Patient presented with altered mental status fall and sepsis. Time on the floor was approximately 23 hours. Temperature max was 103. Patient was started on Zosyn and vancomycin before transfer. Patient is unable to recall what happened at home. He currently denies having any chest pain no shortness of breath, no palpitations, no lightheadedness or dizziness, no previous syncopal episodes, no blood in his stool or urine, no history of stroke or seizure. Blood pressure 137/89, heart rate 87, pulse ox 98% on room air, temperature max 100.2. Patient has been seen by infectious disease and antibiotic switched to cefepime and vancomycin. Patient has also been seen by Dr. Dominguez. A pacemaker wound culture has been obtained. EKG: Sinus rhythm with first-degree block, IVCD Chest x-ray: Mild left pleural effusion Laboratory studies: WBC 10.7, hemoglobin 10.6, platelet count 156. Sodium 138, potassium 3.4, chloride 108, CO2 19 BUN 24 creatinine 0.98. CK 4386 Home cardiac medications: Aspirin 81 mg daily, Lasix 40 mg daily, losartan 50 mg daily, Lopressor 25 mg twice daily, pravastatin 40 mg daily. Lexiscan Cardiolite stress test performed in the office on 05/30/2022 revealed negative stress test by EKG criteria. Abnormal nuclear scan showing fixed apical thinning. Mild LV systolic dysfunction without ischemia. Echocardiogram performed 11/29/2015 revealed EF of 60 to 65%, mild tricuspid regurgitation, mild pulmonary hypertension, moderate concentric left ventricular hypertrophy, mild aortic valve sclerosis without stenosis, mild mitral annular calcification. Cardiac catheterization history in 2009 stent to the RCA 02/04 Patient is seen today in follow-up. His only complaint today is back discomfort. He denies chest pain, shortness of breath, lightheadedness or dizziness. Blood pressure 155/72, heart rate is in the 80s, pulse ox 90% on 2 L nasal cannula. Repeat blood work reveals WBC 8.8, hemoglobin 10.2, platelet count 136. Creatinine 0.54. Patient is currently on IV antibiotics in the form of cefepime and vancomycin. Wound culture and wound culture are both revealing presumptive MRSA and Pseudomonas aeruginosa. Echocardiogram reveals EF of 45%, enlarged right ventricle, biatrial enlargement, lead in the right atrium. Physical examination: Gen: This is an 83-year-old male in no acute distress VS: reviewed HEENT: Head is atraumatic, normocephalic. Pupils equal, round. Sclerae is anicteric. NECK: Supple. No JVD. LUNGS: Clear to auscultation. No wheezes or rhonchi. No intercostal retraction s. HEART: Regular rate and rhythm. No murmur. Pacemaker site to the left anterior chest wall reveals a serosanguineous drainage, no erythema, no edema. ABDOMEN: Soft No tenderness. EXTREMITIES: No pedal edema. No calf tenderness. NEUROLOGICAL: Patient is awake, alert and oriented x3. Assessment: Metabolic encephalopathy resolved Rhabdomyolysis Sepsis secondary to chest wall abscess at pacemaker site Recent pacemaker implantation and hematoma status post I&D Coronary artery disease with previous stent to the RCA in 2009 Hypertension Hyperlipidemia Diabetes mellitus type 2 insulin requiring COPD Remote history of tobacco use History of prostate cancer Plan: Continue current cardiac medications: Aspirin 81 mg daily, Lopressor 25 mg twice daily, pravastatin 40 mg daily Resume patient on a lower dose of losartan 25 mg daily Continue IV antibiotics per ID If patient has persistent bacteremia, we will consider extraction of the pacemaker Further recommendations to follow based upon clinical course Nurse practitioner note has been reviewed, I agree with documented findings and plan of care. Patient was seen and examined. Objective - Vital Signs Vital signs: Vital Signs Temp 97.7 F 02/05/24 08:39 Pulse 80 02/05/24 08:48 Resp 20 02/05/24 08:40 BP 155/72 02/05/24 08:39 Pulse Ox 98 02/05/24 08:39 FiO2 Intake & Output 02/04/24 02/05/24 02/05/24 18:59 06:59 18:59 Intake Total 760 10 240 Output Total 900 475 450 Balance -140 -465 -210 Weight 102.058 kg 91 kg Intake: IV 10 Invasive Line 2 10 Intake, IV Titration 760 Amount Sodium Chloride 0.9% 1, 260 000 ml @ 75 mls/hr IV . [id number] [facility]USAN Rx#:[id number] Vancomycin 1,500 mg In 500 Sodium Chloride 0.9% 500 ml 500 ml @ 167 mls/hr IVPB Q12H [facility] Rx#: [id number] Oral 240 Output: Urine 900 475 450 Other: Voiding Method Indwelling Catheter Indwelling Catheter Indwelling Catheter - Labs CBC & Chem 7: 02/05/24 08:20 02/05/24 08:20 Labs: Abnormal Lab Results - Last 24 Hours (Table) 02/04/24 02/04/24 02/04/24 Range/Units 08:30 08:33 12:06 RBC (4.30-5.90) m/uL Hgb (13.0-17.5) gm/dL Hct (39.0-53.0) % MCHC (31.0-37.0) g/dL RDW (11.5-15.5) % Plt Count (150-450) k/uL Potassium (3.5-5.1) mmol/L Chloride (98-107) mmol/L Carbon Dioxide (22-30) mmol/L BUN (9-20) mg/dL Creatinine (0.66-1.25) mg/dL Glucose (74-99) mg/dL POC Glucose (mg/dL) 163 H (70-110) mg/dL Hemoglobin A1c 6.9 H (<=6.0) % Iron 11 L (65-175) UG/DL % Saturation 4.35 L (15.00-50.00) Transferrin 181.0 L (204.0-354.0) mg/dL Ferritin 325.0 H (22.0-322.0) ng/mL Creatine Kinase (55-170) U/L 02/04/24 02/04/24 02/04/24 Range/Units 12:27 16:14 20:12 RBC (4.30-5.90) m/uL Hgb (13.0-17.5) gm/dL Hct (39.0-53.0) % MCHC (31.0-37.0) g/dL RDW (11.5-15.5) % Plt Count (150-450) k/uL Potassium 3.3 L (3.5-5.1) mmol/L Chloride 114 H (98-107) mmol/L Carbon Dioxide 20 L (22-30) mmol/L BUN 23 H (9-20) mg/dL Creatinine (0.66-1.25) mg/dL Glucose 158 H (74-99) mg/dL POC Glucose (mg/dL) 155 H 191 H (70-110) mg/dL Hemoglobin A1c (<=6.0) % Iron (65-175) UG/DL % Saturation (15.00-50.00) Transferrin (204.0-354.0) mg/dL Ferritin (22.0-322.0) ng/mL Creatine Kinase 1514 H* (55-170) U/L 02/05/24 02/05/24 02/05/24 Range/Units 06:10 08:20 08:20 RBC 3.87 L (4.30-5.90) m/uL Hgb 10.2 L (13.0-17.5) gm/dL Hct 33.3 L (39.0-53.0) % MCHC 30.8 L (31.0-37.0) g/dL RDW 16.3 H (11.5-15.5) % Plt Count 136 L (150-450) k/uL Potassium (3.5-5.1) mmol/L Chloride (98-107) mmol/L Carbon Dioxide (22-30) mmol/L BUN (9-20) mg/dL Creatinine 0.54 L (0.66-1.25) mg/dL Glucose (74-99) mg/dL POC Glucose (mg/dL) 197 H (70-110) mg/dL Hemoglobin A1c (<=6.0) % Iron (65-175) UG/DL % Saturation (15.00-50.00) Transferrin (204.0-354.0) mg/dL Ferritin (22.0-322.0) ng/mL Creatine Kinase (55-170) U/L Microbiology - Last 24 Hours (Table) 02/03/24 12:16 Gram Stain - Preliminary Chest Wound Culture - Preliminary Presumptive MRSA Pseudomonas aeruginosa 02/03/24 11:21 Blood Culture Gram Stain - Preliminary Blood Blood Culture - Preliminary Presumptive MRSA Molecular ID
[2024-02-05] MEDS: LOSARTAN 25 MG TAB PO SCH (12:35)
[2024-02-05] MEDS: CEFEPIME 2 GM in SODIUM CHLORIDE 0.9% 100 ML IVPB SCH (12:36)
--- NOTE | 2024-02-05 15:30 | P.PN ---
Subjective Progress Note Date: 02/05/24 Principal diagnosis: Reason for follow-up is MRSA bacteremia and left chest wall abscess cellulitis Patient is 83-year-old male with a past medical history significant f or diabetes mellitus hypertension hyperlipidemia pneumonia coronary artery disease patient did have a left chest wall pacemaker placement at [facility] subsequently did have a hematoma evacuation by vascular surgery now has been transferred from outside facility with the patient presented with a fever weakness and there was drainage from his left chest wall pacemaker site. On today's evaluation that is 02/05/2024, Patient is afebrile patient is currently on room air still complaining of not feeling well did have a left- sided chest pain some shortness of breath however not requiring any supplemental oxygen denies any significant cough no nausea vomiting or diarrhea. Patient white count is 8.8, creatinine 0.54 blood culture with MRSA chest wall culture growing MRSA as well as Pseudomonas Objective - Vital Signs Vital signs: Vital Signs Temp 97.7 F 02/05/24 08:39 Pulse 80 02/05/24 08:48 Resp 20 02/05/24 08:40 BP 155/72 02/05/24 08:39 Pulse Ox 98 02/05/24 08:39 FiO2 Intake & Output 02/04/24 02/05/24 02/05/24 18:59 06:59 18:59 Intake Total 760 10 240 Output Total 900 475 450 Balance -140 -465 -210 Weight 102.058 kg 91 kg Intake: IV 10 Invasive Line 2 10 Intake, IV Titration 760 Amount Sodium Chloride 0.9% 1, 260 000 ml @ 75 mls/hr IV . [id number] SUSAN Rx#:[id number] Vancomycin 1,500 mg In 500 Sodium Chloride 0.9% 500 ml 500 ml @ 167 mls/hr IVPB Q12H SUSAN Rx#: [id number] Oral 240 Output: Urine 900 475 450 Other: Voiding Method Indwelling Catheter Indwelling Catheter Indwelling Catheter - Exam GENERAL DESCRIPTION: An elderly male lying in bed in no distress RESPIRATORY SYSTEM: Unlabored breathing , decreased breath sounds at bases HEART: S1 S2 regular rate and rhythm , left chest wall redness slightly decreased ABDOMEN: Soft , no tenderness EXTREMITIES: No edema feet - Labs CBC & Chem 7: 02/05/24 08:20 02/05/24 08:20 Labs: Abnormal Lab Results - Last 24 Hours (Table) 02/04/24 02/04/24 02/04/24 Range/Units 08:30 08:33 12:06 RBC (4.30-5.90) m/uL Hgb (13.0-17.5) gm/dL Hct (39.0-53.0) % MCHC (31.0-37.0) g/dL RDW (11.5-15.5) % Plt Count (150-450) k/uL Potassium (3.5-5.1) mmol/L Chloride (98-107) mmol/L Carbon Dioxide (22-30) mmol/L BUN (9-20) mg/dL Creatinine (0.66-1.25) mg/dL Glucose (74-99) mg/dL POC Glucose (mg/dL) 163 H (70-110) mg/dL Hemoglobin A1c 6.9 H (<=6.0) % Iron 11 L (65-175) UG/DL % Saturation 4.35 L (15.00-50.00) Transferrin 181.0 L (204.0-354.0) mg/dL Ferritin 325.0 H (22.0-322.0) ng/mL Creatine Kinase (55-170) U/L 02/04/24 02/04/24 02/04/24 Range/Units 12:27 16:14 20:12 RBC (4.30-5.90) m/uL Hgb (13.0-17.5) gm/dL Hct (39.0-53.0) % MCHC (31.0-37.0) g/dL RDW (11.5-15.5) % Plt Count (150-450) k/uL Potassium 3.3 L (3.5-5.1) mmol/L Chloride 114 H (98-107) mmol/L Carbon Dioxide 20 L (22-30) mmol/L BUN 23 H (9-20) mg/dL Creatinine (0.66-1.25) mg/dL Glucose 158 H (74-99) mg/dL POC Glucose (mg/dL) 155 H 191 H (70-110) mg/dL Hemoglobin A1c (<=6.0) % Iron (65-175) UG/DL % Saturation (15.00-50.00) Transferrin (204.0-354.0) mg/dL Ferritin (22.0-322.0) ng/mL Creatine Kinase 1514 H* (55-170) U/L 02/05/24 02/05/24 02/05/24 Range/Units 06:10 08:20 08:20 RBC 3.87 L (4.30-5.90) m/uL Hgb 10.2 L (13.0-17.5) gm/dL Hct 33.3 L (39.0-53.0) % MCHC 30.8 L (31.0-37.0) g/dL RDW 16.3 H (11.5-15.5) % Plt Count 136 L (150-450) k/uL Potassium (3.5-5.1) mmol/L Chloride (98-107) mmol/L Carbon Dioxide (22-30) mmol/L BUN (9-20) mg/dL Creatinine 0.54 L (0.66-1.25) mg/dL Glucose (74-99) mg/dL POC Glucose (mg/dL) 197 H (70-110) mg/dL Hemoglobin A1c (<=6.0) % Iron (65-175) UG/DL % Saturation (15.00-50.00) Transferrin (204.0-354.0) mg/dL Ferritin (22.0-322.0) ng/mL Creatine Kinase (55-170) U/L Microbiology - Last 24 Hours (Table) 02/03/24 12:16 Gram Stain - Preliminary Chest Wound Culture - Preliminary Presumptive MRSA Pseudomonas aeruginosa 02/03/24 11:21 Blood Culture Gram Stain - Preliminary Blood Blood Culture - Preliminary Presumptive MRSA Molecular ID Assessment and Plan (1) Abscess of chest wall Current Visit: Yes Status: Acute Code(s): L02.213 - CUTANEOUS ABSCESS OF CHEST WALL SNOMED Code(s): 14874102 (2) Sepsis Current Visit: Yes Status: Acute Code(s): A41.9 - SEPSIS, UNSPECIFIED ORGANISM SNOMED Code(s): 50973866 (3) MRSA bacteremia Current Visit: Yes Status: Acute Code(s): R78.81 - BACTEREMIA; B95.62 - METHICILLIN RESIS STAPH INFCT CAUSING DISEASES CLASSD [facility] SNOMED Code(s): 88198606000597955 Plan: 1patient presented to hospital with sepsis in this patient who did have fever tachycardia source is likely left chest wall abscess at the site of recent pacemaker placement in this patient who did have hematoma evacuation few weeks ago however no cultures were done at that time we will need to cover for gram- positive skin anup such as MRSA to the likely pathogen gram-negative infection less likely but not entirely excluded 2blood culture are currently growing MRSA likely related to his left chest wall abscess cellulitis local culture currently pending, blood cultures will be r epeat document clearance of bacteremia 3-patient to continue with vancomycin pharmacy to dose with local cultures also showing Pseudomonas aeruginosa we will add cefepime follow-up on the repeat blood cultures to make sure the patient cleared his bacteremia family the bedside multiple question concerns were answered Dictation was produced using [employer] dictation software. please excuse any grammatical, word or spelling errors. Time with Patient: Less than 30
--- NOTE | 2024-02-05 16:33 | P.PN ---
Progress Note - Text Progress Note Date: 02/05/24 Chief Complaint: Found on the floor This is a pleasant 83-year-old patient, follows with BRAND COMMUNICATIONS MANAGER Chacha Frank, with Dr. Matthews. Most of the history is obtained by patient's son Masoud who is also the POA at the bedside. About 2 weeks ago patient had a permanent pacemaker placed at [facility]. Patient is being home. Does use a walker. Lives alone. Son and his checking every night to make a meal for him. When they came in yesterday evening the patient was found on the bathroom. Patient had good been there for several hours. Patient does not remember what happened. The pacemaker site look infected. He was taken to [facility]. Diagnosed with pneumonia and sent down here. Patient does not remember the details of what happened. Patient's got some shortness of breath. Slight cough. February 03: Patient's son and [id number] at the bedside. Patient had a permanent pacemaker placed [address] ODILIA Thompson along with Dr. Gabby Dominguez 2 weeks ago at [facility]. Patient did develop a hematoma about a week ago. That was evacuated by Dr. Dominguez. Yesterday Dr. Beck from [place] drained some pus from the area. He spoke to the family today about deep infection long-term antibiotics versus possible replacement of the pacemaker. Cardiology is following. They will take a decision about the same. Some local pain. Ice pack Tylenol ordered. Eating some. February 04: Patient is having his flareup of chronic back pain. K-pad ordered. On IV cefepime IV vancomycin. Wound cultures growing Pseudomonas and MRSA. Blood culture positive for MRSA. Per cardiology at this point continue antibiotics. If bacteremia persist then pacemaker will be removed. Earlier discussed at the bedside with son and [id number]. Physical therapy put the patient on a chair. Patient is iron deficiency anemia. IV Ferrlecit 3 doses. Eating fair Active Medications Acetaminophen (Acetaminophen Tab 500 Mg Tab) 500 mg PO Q4HR PRN PRN Reason: Fever and/ or Pain Last Admin: 02/05/24 12:37 Dose: 500 mg Albuterol/Ipratropium (Ipratropium-Albuterol 3 Ml Neb) 3 ml INHALATION RT-QID SUSAN Last Admin: 02/05/24 15:45 Dose: 3 ml Aspirin (Aspirin 81 Mg) 81 mg PO HS [facility] Last Admin: 02/04/24 20:42 Dose: 81 mg Bicalutamide (Bicalutamide 50 Mg Tab) 50 mg PO DAILY [facility] Last Admin: 02/05/24 08:33 Dose: 50 mg Dextrose/Water (Dextrose 50% Syringe 50 Ml) 25 ml IVP PER PROTOCOL PRN; Protocol PRN Reason: Hypoglycemia Dextrose/Water (Dextrose 50% Syringe 50 Ml) 50 ml IVP PER PROTOCOL PRN; Protocol PRN Reason: Hypoglycemia Enoxaparin Sodium (Enoxaparin 40 Mg/0.4 Ml Syringe) 40 mg SQ DAILY [facility] Last Admin: 02/05/24 08:32 Dose: 40 mg Sodium Chloride (Saline 0.9%) 1,000 mls @ 75 mls/hr IV .[id number] [facility] Last Admin: 02/04/24 22:43 Dose: 75 mls/hr Vancomycin HCl 1,500 mg/ (Sodium Chloride) 500 mls @ 167 mls/hr IVPB Q12H [facility] Last Admin: 02/05/24 06:23 Dose: 167 mls/hr Cefepime HCl 2 gm/ Sodium (Chloride) 100 mls @ 25 mls/hr IVPB Q8H [facility]; Protocol Last Admin: 02/05/24 12:36 Dose: 25 mls/hr Insulin Aspart (Insulin Aspart (Novolog) 100 Unit/Ml Vial) 0 unit SQ AC-TID [facility]; Protocol Last Admin: 02/05/24 12:35 Dose: 2 unit Insulin Detemir (Insulin Detemir (Levemir) 100 Unit/Ml Syr) 16 unit SQ DAILY@0700 [facility] Last Admin: 02/05/24 06:24 Dose: 16 unit Latanoprost (Latanoprost 0.005% Ophth Drops 2.5 Ml Btl) 1 drops [facility] Last Admin: 02/04/24 22:44 Dose: Not Given Losartan Potassium (Losartan 25 Mg Tab) 25 mg PO DAILY [facility] Last Admin: 02/05/24 12:35 Dose: 25 mg Metoprolol Tartrate (Metoprolol Tartrate 25 Mg Tab) 25 mg PO BID [facility] Last Admin: 02/05/24 08:32 Dose: 25 mg Miscellaneous Information (Vancomycin Trough Due 1 Each Misc) 1 each MISCELLANE ONCE ONE Stop: 02/06/24 05:01 Naloxone HCl (Naloxone 0.4 Mg/Ml 1 Ml Vial) 0.2 mg IV Q2M PRN PRN Reason: Opioid Reversal Ondansetron HCl (Ondansetron 4 Mg/2 Ml Vial) 4 mg IVP Q8HR PRN PRN Reason: Nausea And Vomiting Oxybutynin Chloride (Oxybutynin 10 Mg Tab.Er.24) 10 mg PO DAILY [facility] Last Admin: 02/05/24 08:32 Dose: 10 mg Pantoprazole Sodium (Pantoprazole 40 Mg Tablet) 40 mg PO AC-BID [facility] Last Admin: 02/05/24 06:24 Dose: 40 mg Pravastatin Sodium (Pravastatin Sodium 40 Mg Tab) 40 mg PO DAILY [facility] Last Admin: 02/05/24 08:32 Dose: 40 mg Tamsulosin HCl (Tamsulosin 0.4 Mg Cap.Er.24h) 0.4 mg PO DAILY [facility] Last Admin: 02/05/24 08:32 Dose: 0.4 mg Social history: Lives alone. Does use a walker. Smoked 2 to 3 packs a day for close to 60 years stopped about 10 years ago. 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 Patient son Osvaldo is the POA Physical examination: VITAL SIGNS: 98.3, 85, 24, 149 with 72, 97% room air GENERAL: Reclining in bed, bit tired EYES: Pupils equal. Conjunctiva shakira l. HEENT: External appearance of nose and ears normal, oral cavity grossly normal. Decreased hearing NECK: JVD unable to assess; masses not palpable. HEART: First and second heart sounds are normal; no edema. LUNGS: Respiratory rate increased; diminished breath sounds. ABDOMEN: Soft, nontender, liver spleen not palpable, no masses palpable. PSYCH: Patient is awake, able to answer simple questions. Not able to tell what happened at home. CHEST wall: Dressing over the pacemaker site r MUSCULOSKELETAL:No Clubbing/cyanosis;muscles-grossly intact. OA INVESTIGATIONS, reviewed in the clinical context: February 04: White count 8.8 hemoglobin 10.2 platelets 136 2D echocardiogram: EF 45/50%. Iron 11 TIBC 2 5 3% saturation 4.35 transferrin 181 ferritin 325 Pacemaker wound culture: Pseudomonas aeruginosa, presumptive MRSA Blood culture [February 02] presumptive MRSA February 03: White count 8.4 hemoglobin 10.3 platelets 144 potassium 3.3 BUN 23 creatinine 0.68 CPK 1514 iron 11 TIBC 253% saturation 4.35 transferrin 181 ferritin 325 B12 731 folate 16.7 February 02, 2024: White count 10.7 globin 10.6 platelets 156 sodium 138 potassium 3.4 bicarb 19 BUN 24 creatinine 0.98 CPK 4386 EKG tracing personally reviewed by me-very short HI interval. Intraventricular delay. Chest x-ray film personally reviewed by me-left lower lobe infiltrate Assessment plan: -Acute metabolic encephalopathy, with the patient confused was found on the floor. Likely from underlying infection from pneumonia: Improved -Infected site permanent pacemaker placed 2 weeks ago at [facility]. Hematoma was evacuated about a week ago by Dr. Dominguez. Some pus was drained by Dr. Beck on presentation.. Blood culture growing MRSA Pacemaker wound culture growing Pseudomonas aeruginosa and MRSA IV vancomycin -Sepsis with positive blood cultures, POA -Chronic gait dysfunction, uses a walker at baseline -Moderate cognitive impairment -BPH Flomax 0.4 mg a day, oxybutynin -Hypercholesteremia Pravachol 40 mg a day -CAD with prior history of stent Aspirin. Beta-keiry. Protocol. -Normocytic anemia, iron deficiency anemia B12 and folate normal IV Ferrlecit-3 doses -Acute rhabdomyolysis secondary to fall IV fluids -Prostate cancer, history bicalutamide -GERD Protonix 40 mg twice daily -Diabetes mellitus type 2, chronically on insulin Lantus 16 units a day. Diabetic diet. Follow Accu-Cheks with sliding scale insulin -Essential hypertension Lopressor. Cozaar. -Permanent pacemaker -DNR -Power of net finisher, son Osvaldo Continue IV antibiotics. Gentle IV hydration. Follow labs. Discussed with son and twghriia-[id number]-qoa at the bedside. Await finalization of cultures. Past Medical History Past Medical History: Coronary Artery Disease (CAD), Cancer, Chest Pain / Angina, COPD, Diabetes Mellitus, GERD/Reflux, Hyperlipidemia, Hypertension, Pneumonia Additional Past Medical History / Comment(s): came from [facility]- (rectal bleeding) and uti. kidney stone in past,constipation, arthritis in back, anemia,prostate cancer, hands shake at times, head inj/brain bleed 2015-no sx was needed. 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
[2024-02-05 16:42] LABS: Glucose,Whole Blood 186 mg/dL (70-110)
[2024-02-05] MEDS: SODIUM FERRIC GLUCONAT-SUCROSE 125 MG in SODIUM CHLORIDE 0.9% 100 ML IVPB SCH (17:13)
[2024-02-05 19:44] LABS: Glucose,Whole Blood 181 mg/dL (70-110)
[2024-02-06 06:04] LABS: Glucose,Whole Blood 112 mg/dL (70-110)
[2024-02-06] MEDS: VANCOMYCIN TROUGH DUE 1 EACH MISC MISCELLANE ONE (06:47)
[2024-02-06 08:15] LABS: Anisocytosis Slight; HCT 30.7 % (39.0-53.0); HGB 9.7 gm/dL (13.0-17.5); Hypochromasia Marked; MCH 26.5 pg (25.0-35.0); MCHC 31.7 g/dL (31.0-37.0); MCV 83.7 fL (80.0-100.0); Mean Platelet Volume 8.1; Platelet Count 203 k/uL (150-450); RBC 3.67 m/uL (4.30-5.90); RDW 16.1 % (11.5-15.5); WBC 10.6 k/uL (3.8-10.6)
[2024-02-06 08:53] LABS: African American GFR (CKD) >90 (>60 ml/min/1.73 sqM); Anion Gap 6 mmol/L; Blood Urea Nitrogen 9 mg/dL (9-20); Calcium 8.1 mg/dL (8.4-10.2); Carbon Dioxide 22 mmol/L (22-30); Chloride 107 mmol/L (98-107); Glucose 111 mg/dL (74-99); Non-African American GFR(CKD) >90 (>60 ml/min/1.73 sqM); Potassium 3.3 mmol/L (3.5-5.1); Sodium 135 mmol/L (137-145)
[2024-02-06 11:59] LABS: Glucose,Whole Blood 113 mg/dL (70-110)
--- NOTE | 2024-02-06 12:18 | P.PN ---
Subjective Progress Note Date: 02/06/24 This is an 83-year-old male patient of Dr. Maddy Obrien with past medical history of permanent pacemaker implantation for bradycardia which was complicated by hematoma at the pacer site and subsequently underwent drainage of the hematoma. Also history of coronary artery disease with previous stent to the RCA in 2009, hypertension, dyslipidemia, diabetes mellitus insulin requiring, COPD, gastroesophageal reflux disease, benign prostatic hypertrophy.. We have been asked to evaluate the patient for infected pacemaker. Patient had a [employer]tronic dual-chamber permanent pacemaker implantation done at [facility] on 01/07/2024 for high-grade AV block with symptoms of dizziness and lightheadedness. He subsequently had hematoma I&D with Dr. Dominguez. Patient was last seen in the office on 01/25/2024 and at that time there were no fluid accumulation and pacemaker has been checked and functioning normally. Patient apparently was found in the bathroom by his family and went to [facility] and subsequently transferred to [facility]. He had a chest x-ray done at [place] that showed a left lobe pneumonia. Patient presented with altered mental status fall and sepsis. Time on the floor was approximately 23 hours. Temperature max was 103. Patient was started on Zosyn and vancomycin before transfer. Patient is unable to recall what happened at home. He currently denies having any chest pain no shortness of breath, no palpitations, no lightheadedness or dizziness, no previous syncopal episodes, no blood in his stool or urine, no history of stroke or seizure. Blood pressure 137/89, heart rate 87, pulse ox 98% on room air, temperature max 100.2. Patient has been seen by infectious disease and antibiotic switched to cefepime and vancomycin. Patient has also been seen by Dr. Dominguez. A pacemaker wound culture has been obtained. EKG: Sinus rhythm with first-degree block, IVCD Chest x-ray: Mild left pleural effusion Laboratory studies: WBC 10.7, hemoglobin 10.6, platelet count 156. Sodium 138, potassium 3.4, chloride 108, CO2 19 BUN 24 creatinine 0.98. CK 4386 Home cardiac medications: Aspirin 81 mg daily, Lasix 40 mg daily, losartan 50 mg daily, Lopressor 25 mg twice daily, pravastatin 40 mg daily. Lexiscan Cardiolite stress test performed in the office on 05/30/2022 revealed negative stress test by EKG criteria. Abnormal nuclear scan showing fixed apica l thinning. Mild LV systolic dysfunction without ischemia. Echocardiogram performed 11/29/2015 revealed EF of 60 to 65%, mild tricuspid regurgitation, mild pulmonary hypertension, moderate concentric left ventricular hypertrophy, mild aortic valve sclerosis without stenosis, mild mitral annular calcification. Cardiac catheterization history in 2009 stent to the RCA 02/06/2024 The patient was seen and examined lying in bed. He continues to complain of significant back discomfort with minimal relief from Tylenol as ordered by primary. He has been afebrile. Blood cultures are pending. White blood cell count remains in the normal range. Patient denies shortness of breath but appears dyspneic. Denies any chest discomfort, palpitations or dizziness. Denies any orthopnea or PND. Denies any fever or chills. Objective - Vital Signs Vital signs: Vital Signs Temp 97.1 F L 02/06/24 11:26 Pulse 82 02/06/24 12:06 Resp 18 02/06/24 11:26 BP 132/63 02/06/24 11:26 Pulse Ox 97 02/06/24 11:26 FiO2 Intake & Output 02/05/24 02/06/24 02/06/24 18:59 06:59 18:59 Intake Total 702 240 Output Total 875 900 575 Balance -173 900 335 Weight 91.5 kg Intake: Oral 702 240 Output: Urine 875 900 575 Other: Voiding Method Indwelling Catheter Indwelling Catheter Indwelling Catheter - Exam Physical examination: Gen: This is an 83-year-old male who appears somewhat dyspneic VS: reviewed HEENT: Head is atraumatic, normocephalic. Pupils equal, round. Sclerae is anicteric. NECK: Supple. No JVD. LUNGS: Clear to auscultation. No wheezes or rhonchi. No intercostal retractions. HEART: Regular rate and rhythm. No murmur. Pacemaker site to the left anterior chest wall reveals a serosanguineous drainage, no erythema, no edema. ABDOMEN: Soft No tenderness. EXTREMITIES: No pedal edema. No calf tenderness. NEUROLOGICAL: Patient is awake, alert and oriented x3. - Labs CBC & Chem 7: 02/06/24 07:34 02/06/24 07:34 Labs: Abnormal Lab Results - Last 24 Hours (Table) 02/05/24 02/05/24 02/06/24 Range/Units 16:40 19:42 06:00 RBC (4.30-5.90) m/uL Hgb (13.0-17.5) gm/dL Hct (39.0-53.0) % RDW (11.5-15.5) % Sodium (137-145) mmol/L Potassium (3.5-5.1) mmol/L Creatinine (0.66-1.25) mg/dL Glucose (74-99) mg/dL POC Glucose (mg/dL) 186 H 181 H 112 H (70-110) mg/dL Calcium (8.4-10.2) mg/dL Creatine Kinase (55-170) U/L 02/06/24 02/06/24 02/06/24 Range/Units 07:34 07:34 07:34 RBC 3.67 L (4.30-5.90) m/uL Hgb 9.7 L (13.0-17.5) gm/dL Hct 30.7 L (39.0-53.0) % RDW 16.1 H (11.5-15.5) % Sodium 135 L (137-145) mmol/L Potassium 3.3 L (3.5-5.1) mmol/L Creatinine 0.53 L (0.66-1.25) mg/dL Glucose 111 H (74-99) mg/dL POC Glucose (mg/dL) (70-110) mg/dL Calcium 8.1 L (8.4-10.2) mg/dL Creatine Kinase 177 H (55-170) U/L 02/06/24 Range/Units 11:56 RBC (4.30-5.90) m/uL Hgb (13.0-17.5) gm/dL Hct (39.0-53.0) % RDW (11.5-15.5) % Sodium (137-145) mmol/L Potassium (3.5-5.1) mmol/L Creatinine (0.66-1.25) mg/dL Glucose (74-99) mg/dL POC Glucose (mg/dL) 113 H (70-110) mg/dL Calcium (8.4-10.2) mg/dL Creatine Kinase (55-170) U/L Microbiology - Last 24 Hours (Table) 02/03/24 11:21 Blood Culture Gram Stain - Final Blood Blood Culture - Final Methicillin resist S. aureus Molecular ID 02/03/24 12:16 Gram Stain - Final Chest Wound Culture - Final Methicillin resist S. aureus Pseudomonas aeruginosa 02/04/24 12:38 Blood Culture - Preliminary Blood Assessment and Plan Assessment: Metabolic encephalopathy resolved Rhabdomyolysis Sepsis secondary to chest wall abscess at pacemaker site cultures positive for MRSA and Pseudomonas aeruginosa Recent pacemaker implantation and hematoma status post I&D Coronary artery disease with previous stent to the RCA in 2009 Hypertension Hyperlipidemia Diabetes mellitus type 2 insulin requiring COPD Remote history of tobacco use History of prostate cancer Plan: From cardiology's perspective will defer pain control to primary. Continue IV antibiotics per ID. Discussed the case with Dr. ODILIA Thompson and Dr. Green. Will watch for blood culture results, monitor CBC and temperature and determine need for pacemaker extraction in the next 24 to 48 hours. We will continue to follow the patient and provide further recommendations accordingly. MAINTENANCE MECHANIC 2ND SHIFT note has been reviewed, I agree with a documented findings and plan of care. Patient was seen and examined.
[2024-02-06] MEDS: LIDOCAINE 4% PATCH TOPICAL SCH (13:19)
--- NOTE | 2024-02-06 14:05 | XR ---
EXAMINATION TYPE: XR lumbar spine 2 or 3V DATE OF EXAM: 02/06/2024 1:14 PM CLINICAL INDICATION: Male, 83 years old with history of lumbar pain - fall; [facility] COMPARISON: None TECHNIQUE: XR lumbar spine 2 or 3V - Frontal, lateral and coned in L5-S1 lateral views of the spine. FINDINGS: No evidence of any acute osseous pathology. No evidence of loss of vertebral body height i s seen. There is dextroscoliotic alignment of the lumbar vertebral bodies. Scattered disc space narro wing. Multilevel marginal osteophyte formation throughout the visualized spine. There is facet joint arthropathy throughout the spine. Scattered at least moderate neural foraminal stenosis. Atherosclero sis of the arterial vasculature. IMPRESSION: 1. No acute fracture identified on radiography attention on follow-up CT lumbar spine. 2. Moderate to severe multilevel disc degeneration. [facility], , 02/06/2024 2:03 PM
--- NOTE | 2024-02-06 14:14 | CT ---
EXAMINATION TYPE: CT lumbar spine wo con DATE OF EXAM: 02/06/2024 1:15 PM COMPARISON: None HISTORY: Lumbar pain. Fall. CT DLP: 1741 mGycm Automated exposure control for dose reduction was used. Unenhanced CT of the lumbar spine was performed. Bone and soft tissue window settings are submitted as well as coronal and sagittal reconstructions. Findings: There is a severe compression fracture of T12 with marked 50% retropulsion of the fracture fragments. The L1-L5 vertebral segments are normal in height and alignment. There is advanced degenerative disc disease from L2 through S1 greatest at the L5-S1 level. There is no large lumbar disc herniation. Secondary to disc bulge and thickening of ligamentum flavum, there is severe spinal stenosis at the L 3-4 and L4-5 levels. The visualized sacrum and SI joints are normal. Mild facet arthropathy in the lower lumbar spine. There is moderate to severe bony neural foraminal encroachment at the L5-S1 level bilaterally. IMPRESSION: 1. Severe T12 compression fracture with 50% retropulsion. 2. Moderate to severe multilevel degenerative disc disease. 3. No large lumbar disc herniation. 4. Severe spinal stenosis at the L3-4 and L4-5 levels [facility], , 02/06/2024 2:12 PM
--- NOTE | 2024-02-06 14:48 | P.CNOR ---
History of Present Illness - [facility] Consult date: 02/06/24 Consult reason: low back pain History of present illness: Patient is an 83-year-old male who has been admitted to [facility] with multiple medical comorbidities, most significant being an infected pacemaker. Patient underwent pacemaker placement on 01/07/2024, he subsequently developed hematoma and underwent another procedure by vascular surgeon at [facility]. Patient was admitted due to bacteremia and other issues, since being in the hospital he is complained of acute on chronic back pain, orthopedic team was consulted. Patient was evaluated at bedside, he is resting comfortably. He did have family members present they were able to help with a better review of systems and histo ry. Apparently the patient was found at home on the ground and brought to the hospital prior to the his most recent admission. Patientcannot provide any further history regarding where he fell and how he fell. Patient seems a lot more comfortable on exam today compared to yesterday stated by the family. A lidocaine patch is in place to the low back. Patient denies any previous surgery to his lumbar spine. Review of Systems Constitutional: Reports as per [facility] Past Medical History Past Medical History: Coronary Artery Disease (CAD), Cancer, Chest Pain / Angina, COPD, Diabetes Mellitus, GERD/Reflux, Hyperlipidemia, Hypertension, Pneumonia, Prostate Disorder Additional Past Medical History / Comment(s): [facility] [place]- (rectal bleeding) and uti. 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, colon resection, stent let eye for glacoma Past Anesthesia/Blood Transfusion Reactions: Previous Problems w/ Anesthesia Additional Past Anesthesia/Blood Transfusion Reaction / Comm: altered mental Date of Last Stent Placement:: unk Type of Cardiac Device: Permanent Pacemaker Device Placement Date:: january 07, 2024 Smoking Status: Former smoker - Past Family History Father Family Medical History: Cancer Mother Family Medical History: Myocardial Infarction ([place]) Medications and Allergies Home Medications Medication Instructions Recorded Confirmed Type Tamsulosin HCl [Flomax] 0.4 mg PO DAILY 11/28/15 02/03/24 History Aspirin EC [Ecotrin Low Dose] 81 mg PO HS 01/02/21 02/03/24 History Insulin Glargine,Hum.rec.anlog 20 unit SQ DAILY 01/02/21 02/03/24 History [Lantus Solostar Pen] Insulin Regular, Human [NovoLIN R] See Protocol SQ AC-TID PRN 01/02/21 02/03/24 History Losartan [Cozaar] 50 mg PO DAILY 01/02/21 02/03/24 History Metoprolol Tartrate [Lopressor] 25 mg PO BID 01/02/21 02/03/24 History Oxybutynin Chloride [oxyBUTYnin 10 mg PO DAILY 01/02/21 02/03/24 History chloride ER] Pravastatin Sodium [Pravachol] 40 mg PO DAILY 01/02/21 02/03/24 History Pantoprazole Sodium [Protonix] 40 mg PO BID 60 Days tab 01/04/21 02/03/24 Rx Bicalutamide 50 mg PO DAILY 02/03/24 02/03/24 History Furosemide [Lasix] 40 mg PO DAILY 02/03/24 02/03/24 History Latanoprost [Latanoprost 0.005%] 1 drop BOTH EYES HS 02/03/24 02/03/24 History Allergies Allergy/AdvReac Type Severity Reaction Status Date / Time No Known Allergies Allergy Verified 02/03/24 08:28 Physical Examination Gen: AOx3, NAD VSS stable at this time Integument: No obvious open lesions or sores are visualized throughout the lower thoracic and lumbar spine, no areas of erythema or soft tissue swelling Palpation: No significant tenderness both midline and paraspinal in the lower thoracic and lumbar spine ROM: Range of motion of the lower extremities slightly difficult to assess due to the patient's medical state and positioning in bed. I was able to help with active and passive range of motion of the lower extremities, no significant pain is reproduced. Negative straight leg raise bilaterally. Hip flexion along with internal and external rotation reproduce no groin pain. Sensory Exam: Senory exam to light touch is intact C5-T1 Senosry exam to light touch is intact L2-S1 Motor: 4/5 strength appreciated in the bilateral lower extremities with hip flexion, knee extension, knee flexion, plantarflexion, dorsiflexion, EHL, FHL Reflexes: 2/4 in all UE and LE Negative clonus bilaterally Results - Labs Labs: Abnormal Lab Results - Last 24 Hours (Table) 02/05/24 02/05/24 02/06/24 Range/Units 16:40 19:42 06:00 RBC (4.30-5.90) m/uL Hgb (13.0-17.5) gm/dL Hct (39.0-53.0) % RDW (11.5-15.5) % Sodium (137-145) mmol/L Potassium (3.5-5.1) mmol/L Creatinine (0.66-1.25) mg/dL Glucose (74-99) mg/dL POC Glucose (mg/dL) 186 H 181 H 112 H (70-110) mg/dL Calcium (8.4-10.2) mg/dL Creatine Kinase (55-170) U/L 02/06/24 02/06/24 02/06/24 Range/Units 07:34 07:34 07:34 RBC 3.67 L (4.30-5.90) m/uL Hgb 9.7 L (13.0-17.5) gm/dL Hct 30.7 L (39.0-53.0) % RDW 16.1 H (11.5-15.5) % Sodium 135 L (137-145) mmol/L Potassium 3.3 L (3.5-5.1) mmol/L Creatinine 0.53 L (0.66-1.25) mg/dL Glucose 111 H (74-99) mg/dL POC Glucose (mg/dL) (70-110) mg/dL Calcium 8.1 L (8.4-10.2) mg/dL Creatine Kinase 177 H (55-170) U/L 02/06/24 Range/Units 11:56 RBC (4.30-5.90) m/uL Hgb (13.0-17.5) gm/dL Hct (39.0-53.0) % RDW (11.5-15.5) % Sodium (137-145) mmol/L Potassium (3.5-5.1) mmol/L Creatinine (0.66-1.25) mg/dL Glucose (74-99) mg/dL POC Glucose (mg/dL) 113 H (70-110) mg/dL Calcium (8.4-10.2) mg/dL Creatine Kinase (55-170) U/L Microbiology - Last 24 Hours (Table) 02/03/24 11:21 Blood Culture Gram Stain - Final Blood Blood Culture - Final Methicillin resist S. aureus Molecular ID 02/03/24 12:16 Gram Stain - Final Chest Wound Culture - Final Methicillin resist S. aureus Pseudomonas aeruginosa 02/04/24 12:38 Blood Culture - Preliminary Blood H & H 02/02/24 02/04/24 02/05/24 Range/Units 23:59 08:33 08:20 Hgb 10.6 L 10.3 L 10.2 L (13.0-17.5) gm/dL Hct 33.6 L 32.7 L 33.3 L (39.0-53.0) % 02/06/24 Range/Units 07:34 Hgb 9.7 L (13.0-17.5) gm/dL Hct 30.7 L (39.0-53.0) % Result Diagrams: 02/06/24 07:34 02/06/24 07:34 - Diagnostic results CT Scan - lumbar: report reviewed, image reviewed Assessment and Plan Assessment: Acute on chronic low back pain T12 vertebral body compression fracture, chronic multilevel Multilevel lumbar spondylosis Multilevel lumbar degenerative disc disease and vacuum disc phenomenon L2-L3, L3-L4, L4-L5 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 Evidence of a T12 compression fracture, this does seem chronic. There is multiple levels in the lumbar spine of severe spondylosis and degenerative disc disease with varying degrees of central canal and neuroforaminal stenosis. Vacuum disc phenomenon noted at L2-L3, L3-L4, L4-L5 Plan: Case will be discussed with Dr. Kaur, this to include both physical exam findings and imaging studies. Anticipate no emergent orthopedic surgical intervention at this time. Recommend conservative measures, pain control deferring to primary medical team. Would try to avoid heavier dose of narcotics due to patient's age. Can consider low-dose muscle relaxer GI and DVT prophylaxis per primary medical service PT/OT evaluation Other medical specialty recommendations appreciated Will follow patient during hospital stay Time with Patient: Less than 30
--- NOTE | 2024-02-06 15:27 | P.PN ---
Progress Note - Text Progress Note Date: 02/06/24 Chief Complaint: Found on the floor This is a pleasant 83-year-old patient, follows with PHARMACY STOCK CLERK Chacha Frank, with Dr. Matthews. Most of the history is obtained by patient's son Masoud who is also the POA at the bedside. About 2 weeks ago patient had a permanent pacemaker placed at [facility]. Patient is being home. Does use a walker. Lives alone. Son and his checking every night to make a meal for him. When they came in yesterday evening the patient was found on the bathroom. Patient had good been there for several hours. Patient does not remember what happened. The pacemaker site look infected. He was taken to [facility]. Diagnosed with pneumonia and sent down here. Patient does not remember the details of what happened. Patient's got some shortness of breath. Slight cough. February 03: Patient's son and [id number] at the bedside. Patient had a permanent pacemaker placed [address] ODILIA Thompson along with Dr. Gabby Dominguez 2 weeks ago at [facility] [place]. Patient did develop a hematoma about a week ago. That was evacuated by Dr. Dominguez. Yesterday Dr. Beck from [place] drained some pus from the area. He spoke to the family today about deep infection long-term antibiotics versus possible replacement of the pacemaker. Cardiology is following. They will take a decision about the same. Some local pain. Ice pack Tylenol ordered. Eating some. February 04: Patient is having his flareup of chronic back pain. K-pad ordered. On IV cefepime IV vancomycin. Wound cultures growing Pseudomonas and MRSA. Blood culture positive for MRSA. Per cardiology at this point continue antibiotics. If bacteremia persist then pacemaker will be removed. Earlier discussed at the bedside with son and [id number]. Physical therapy put the patient on a chair. Patient is iron deficiency anemia. IV Ferrlecit 3 doses. Eating fair February 05: Patient said no fever. Normal white count. Blood cultures have finalized. Answer wound culture. Repeat blood culture from February 03 [facility] Patient's son and [id number] at the bedside. Since the fall they feel patient's chronic back pain is acutely worsened. I ordered a urgent x-ray and a CT scan. That showed T12 compression fracture reported as chronic. Topical lidocaine patch has been ordered. Orthopedic Dr. Kaur was consulted. No further intervention from the standpoint. Except pain management. Will also add scheduled Tylenol and naproxen. Otherwise patient tolerating a diet. Active Medications Acetaminophen (Acetaminophen Tab 500 Mg Tab) 500 mg PO Q6HR [facility] Albuterol/Ipratropium (Ipratropium-Albuterol 3 Ml Neb) 3 ml INHALATION RT-QID [facility] Last Admin: 02/06/24 11:54 Dose: 3 ml Aspirin (Aspirin 81 Mg) 81 mg PO HS [facility] Last Admin: 02/05/24 21:06 Dose: 81 mg Bicalutamide (Bicalutamide 50 Mg Tab) 50 mg PO DAILY [facility] Last Admin: 02/06/24 08:15 Dose: 50 mg Dextrose/Water (Dextrose 50% Syringe 50 Ml) 25 ml IVP PER PROTOCOL PRN; Protocol PRN Reason: Hypoglycemia Dextrose/Water (Dextrose 50% Syringe 50 Ml) 50 ml IVP PER PROTOCOL PRN; Protocol PRN Reason: Hypoglycemia Enoxaparin Sodium (Enoxaparin 40 Mg/0.4 Ml Syringe) 40 mg SQ DAILY [facility] Last Admin: 02/06/24 08:15 Dose: 40 mg Sodium Chloride (Saline 0.9%) 1,000 mls @ 75 mls/hr IV .[id number] [facility] Last Admin: 02/06/24 09:30 Dose: 75 mls/hr Cefepime HCl 2 gm/ Sodium (Chloride) 100 mls @ 25 mls/hr IVPB Q8H [facility]; Protocol Last Admin: 02/06/24 12:10 Dose: 25 mls/hr Ferric Sodium Gluconate 125 mg (/ Sodium Chloride) 110 mls @ 100 mls/hr IVPB DAILY [facility] Stop: 02/07/24 10:05 Last Admin: 02/06/24 09:27 Dose: 100 mls/hr Vancomycin HCl 1,750 mg/ (Sodium Chloride) 500 mls @ 167 mls/hr IVPB Q12H [facility] Insulin Aspart (Insulin Aspart (Novolog) 100 Unit/Ml Vial) 0 unit SQ AC-TID [facility]; Protocol Last Admin: 02/06/24 12:09 Dose: Not Given Insulin Detemir (Insulin Detemir (Levemir) 100 Unit/Ml Syr) 16 unit SQ DAILY@0700 [facility] Last Admin: 02/06/24 06:48 Dose: 16 unit Latanoprost (Latanoprost 0.005% Ophth Drops 2.5 Ml Btl) 1 drops BOTH EYES HS [facility] Last Admin: 02/05/24 21:27 Dose: 1 drops Lidocaine (Lidocaine 4% Patch) 1 patch TOPICAL DAILY [facility]; Protocol Last Admin: 02/06/24 13:19 Dose: 1 patch Losartan Potassium (Losartan 25 Mg Tab) 25 mg PO DAILY [facility] Last Admin: 02/06/24 08:15 Dose: 25 mg Metoprolol Tartrate (Metoprolol Tartrate 25 Mg Tab) 25 mg PO BID [facility] Last Admin: 02/06/24 08:15 Dose: 25 mg Naloxone HCl (Naloxone 0.4 Mg/Ml 1 Ml Vial) 0.2 mg IV Q2M PRN PRN Reason: Opioid Reversal Naproxen (Naproxen 250 Mg Tab) 250 mg PO TID [facility] Ondansetron HCl (Ondansetron 4 Mg/2 Ml Vial) 4 mg IVP Q8HR PRN PRN Reason: Nausea And Vomiting Oxybutynin Chloride (Oxybutynin 10 Mg Tab.Er.24) 10 mg PO DAILY [facility] Last Admin: 02/06/24 08:15 Dose: 10 mg Pantoprazole Sodium (Pantoprazole 40 Mg Tablet) 40 mg PO AC-BID [facility] Last Admin: 02/06/24 06:48 Dose: 40 mg Pravastatin Sodium (Pravastatin Sodium 40 Mg Tab) 40 mg PO DAILY [facility] Last Admin: 02/06/24 08:15 Dose: 40 mg Tamsulosin HCl (Tamsulosin 0.4 Mg Cap.Er.24h) 0.4 mg PO DAILY [facility] Last Admin: 02/06/24 08:15 Dose: 0.4 mg Social history: Lives alone. Does use a walker. Smoked 2 to 3 packs a day for close to 60 years stopped about 10 years ago. 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 Patient son Osvaldo is the POA Physical examination: VITAL SIGNS: 97.1, 82, 18, 132 x 63, 97% on 2 L GENERAL: Reclining in bed, bit uncomfortable EYES: Pupils equal. Conjunctiva shakira l. HEENT: External appearance of nose and ears normal, oral cavity grossly normal. Decreased hearing NECK: JVD unable to assess; masses not palpable. HEART: First and second heart sounds are normal; no edema. LUNGS: Respiratory rate increased; diminished breath sounds. ABDOMEN: Soft, nontender, liver spleen not palpable, no masses palpable. PSYCH: Patient is awake, able to answer simple questions. Not able to tell what happened at home. CHEST wall: Dressing over the pacemaker site r MUSCULOSKELETAL:No Clubbing/cyanosis;muscles-grossly intact. OA. Increased pain lower lumbar spine with movement INVESTIGATIONS, reviewed in the clinical context: CT scan lumbar spine [January 28] severe T12 compression fracture 50%. Other DJD changes. Secondary to disc bulge and thickening of ligamentum flavum there is severe spinal stenosis at L3-L4 L4-L5. Moderate to severe bony neural foramina encroachment at L5-S1 level bilaterally. February 04: White count 8.8 hemoglobin 10.2 platelets 136 2D echocardiogram: EF 45/50%. Iron 11 TIBC 2 5 3% saturation 4.35 transferrin 181 ferritin 325 Pacemaker wound culture: Pseudomonas aeruginosa, presumptive MRSA Blood culture [February 02] presumptive MRSA February 03: White count 8.4 hemoglobin 10.3 platelets 144 potassium 3.3 BUN 23 creatinine 0.68 CPK 1514 iron 11 TIBC 253% saturation 4.35 transferrin 181 ferritin 325 B12 731 folate 16.7 February 02, 2024: White count 10.7 globin 10.6 platelets 156 sodium 138 potassium 3.4 bicarb 19 BUN 24 creatinine 0.98 CPK 4386 EKG tracing personally reviewed by me-very short FL interval. Intraventricular delay. Chest x-ray film personally reviewed by me-left lower lobe infiltrate Assessment plan: -Acute metabolic encephalopathy, with the patient confused was found on the floor. Likely from underlying infection from pneumonia: Improved -Infected site permanent pacemaker placed 2 weeks ago at [facility] [place]. Hematoma was evacuated about a week ago by Dr. Dominguez. Some pus was drained by Dr. Beck on presentation.. Blood culture growing MRSA Pacemaker wound culture growing Pseudomonas aeruginosa and MRSA IV vancomycin, IV cefepime -Sepsis with positive blood cultures, POA -Chronic gait dysfunction, uses a walker at baseline -Moderate cognitive impairment -BPH Flomax 0.4 mg a day, oxybutynin -Hypercholesteremia Pravachol 40 mg a day -severe T12 compression fracture 50%. Other DJD changes. Secondary to disc bulge and thickening of ligamentum flavum there is severe spinal stenosis at L3- L4 L4-L5. Moderate to severe bony neural foramina encroachment at L5-S1 level bilaterally.: Causing acute on chronic low back pain: New diagnosis Seen by orthopedic spine Dr. Kaur. For medical management. Lidocaine 4% patch. Add naproxen 250 mg 3 times daily.. Scheduled Tylenol 5 mg 4 times daily. Add Flexeril 5 mg nightly. -CAD with prior history of stent Aspirin. Beta-keiry. Protocol. -Normocytic anemia, iron deficiency anemia B12 and folate normal IV Ferrlecit-3 doses -Acute rhabdomyolysis secondary to fall IV fluids -Prostate cancer, history bicalutamide -GERD Protonix 40 mg twice daily -Diabetes mellitus type 2, chronically on insulin Lantus 16 units a day. Diabetic diet. Follow Accu-Cheks with sliding scale insulin -Essential hypertension Lopressor. Cozaar. -Permanent pacemaker -DNR -Power of law office assistant, son Osvaldo Discussed with son and kbhjvteq-jn-byl at the bedside. Past Medical History Past Medical History: Coronary Artery Disease (CAD), Cancer, Chest Pain / Angina, COPD, Diabetes Mellitus, GERD/Reflux, Hyperlipidemia, Hypertension, Pneumonia Additional Past Medical History / Comment(s): came from [facility]- (rectal bleeding) and uti. kidney stone in past,constipation, arthritis in back, anemia,prostate cancer, hands shake at times, head inj/brain bleed 2016-no sx was needed. 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
[2024-02-06 16:12] LABS: Glucose,Whole Blood 109 mg/dL (70-110)
--- NOTE | 2024-02-06 16:58 | P.PN ---
Subjective Progress Note Date: 02/06/24 Principal diagnosis: Reason for follow-up is MRSA bacteremia and left chest wall abscess cellulitis Patient is 83-year-old male with a past medical history significant f or diabetes mellitus hypertension hyperlipidemia pneumonia coronary artery disease patient did have a left chest wall pacemaker placement at [facility] subsequently did have a hematoma evacuation by vascular surgery now has been transferred from outside facility with the patient presented with a fever weakness and there was drainage from his left chest wall pacemaker site. On today's evaluation that is 02/06/2024, patient has been afebrile, patient is breathing comfortably and is currently on 2 L nasal cannula oxygen, patient denies having any significant cough no chest pain , patient denies nausea vomiting or diarrhea and no abdominal pain. Patient white count is 10.6 creatinine 0.53 blood culture repeat 926 so far negative Objective - Vital Signs Vital signs: Vital Signs Temp 97.5 F L 02/06/24 16:00 Pulse 90 02/06/24 16:00 Resp 18 02/06/24 16:00 BP 118/68 02/06/24 16:00 Pulse Ox 94 L 02/06/24 16:00 FiO2 Intake & Output 02/05/24 02/06/24 02/06/24 18:59 06:59 18:59 Intake Total 702 360 Output Total 608 248 9778 Balance -173 -900 -818 Weight 91.5 kg Intake: Oral 702 360 Output: Urine 397 575 8810 Other: Voiding Method Indwelling Catheter Indwelling Catheter Indwelling Catheter - Exam GENERAL DESCRIPTION: An elderly male lying in bed in no distress RESPIRATORY SYSTEM: Unlabored breathing , decreased breath sounds at bases HEART: S1 S2 regular rate and rhythm , left chest wall redness slightly decreased ABDOMEN: Soft , no tenderness EXTREMITIES: No edema feet - Labs CBC & Chem 7: 02/06/24 07:34 02/06/24 07:34 Labs: Abnormal Lab Results - Last 24 Hours (Table) 02/05/24 02/06/24 02/06/24 Range/Units 19:42 06:00 07:34 RBC (4.30-5.90) m/uL Hgb (13.0-17.5) gm/dL Hct (39.0-53.0) % RDW (11.5-15.5) % Sodium (137-145) mmol/L Potassium (3.5-5.1) mmol/L Creatinine (0.66-1.25) mg/dL Glucose (74-99) mg/dL POC Glucose (mg/dL) 181 H 112 H (70-110) mg/dL Calcium (8.4-10.2) mg/dL Creatine Kinase 177 H (55-170) U/L 02/06/24 02/06/24 02/06/24 Range/Units 07:34 07:34 11:56 RBC 3.67 L (4.30-5.90) m/uL Hgb 9.7 L (13.0-17.5) gm/dL Hct 30.7 L (39.0-53.0) % RDW 16.1 H (11.5-15.5) % Sodium 135 L (137-145) mmol/L Potassium 3.3 L (3.5-5.1) mmol/L Creatinine 0.53 L (0.66-1.25) mg/dL Glucose 111 H (74-99) mg/dL POC Glucose (mg/dL) 113 H (70-110) mg/dL Calcium 8.1 L (8.4-10.2) mg/dL Creatine Kinase (55-170) U/L Microbiology - Last 24 Hours (Table) 02/03/24 11:21 Blood Culture Gram Stain - Final Blood Blood Culture - Final Methicillin resist S. aureus Molecular ID 02/03/24 12:16 Gram Stain - Final Chest Wound Culture - Final Methicillin resist S. aureus Pseudomonas aeruginosa 02/04/24 12:38 Blood Culture - Preliminary Blood Assessment and Plan (1) Abscess of chest wall Current Visit: Yes Status: Acute Code(s): L02.213 - CUTANEOUS ABSCESS OF CHEST WALL SNOMED Code(s): 81778653 (2) Sepsis Current Visit: Yes Status: Acute Code(s): A41.9 - SEPSIS, UNSPECIFIED ORGANISM SNOMED Code(s): 39226798 (3) MRSA bacteremia Current Visit: Yes Status: Acute Code(s): R78.81 - BACTEREMIA; B95.62 - METHICILLIN RESIS STAPH INFCT CAUSING DISEASES [facility] SNOMED Code(s): 15660373826111142 Plan: 1patient presented to hospital with sepsis in this patient who did have fever tachycardia source is likely left chest wall abscess at the site of recent pacemaker placement in this patient who did have hematoma evacuation few weeks ago however no cultures were done at that time we will need to cover for gram- positive skin anup such as MRSA to the likely pathogen gram-negative infection less likely but not entirely excluded 2blood culture positive for MRSA local culture with MRSA and Pseudomonas blood culture repeat has been negative so far 3-patient to continue with vancomycin pharmacy to dose and cefepime if the patient cleared his bacteremia plan is for a PICC line course of IV followed by oral suppressive antibiotics Dictation was produced using [employer] dictation software. please excuse any grammatical, word or spelling errors. Time with Patient: Less than 30
[2024-02-06] MEDS: NAPROXEN 250 MG TAB PO SCH (17:00)
[2024-02-06] MEDS: ACETAMINOPHEN TAB 500 MG TAB PO SCH (17:01)
[2024-02-06] MEDS: LIDOCAINE 4% CREAM 5 GM TUBE TOPICAL ONE (17:21)
[2024-02-06] MEDS: VANCOMYCIN 1,750 MG in SODIUM CHLORIDE 0.9% 500 ML 500 ML IVPB SCH (17:59)
[2024-02-06 20:23] LABS: Glucose,Whole Blood 134 mg/dL (70-110)
[2024-02-06] MEDS: FAMOTIDINE 20 MG TAB PO SCH (21:33)
[2024-02-07 05:59] LABS: Glucose,Whole Blood 91 mg/dL (70-110)
[2024-02-07 08:38] LABS: Anisocytosis Slight; HGB 9.7 gm/dL (13.0-17.5); Hypochromasia Moderate; MCH 26.5 pg (25.0-35.0); MCHC 31.4 g/dL (31.0-37.0); MCV 84.7 fL (80.0-100.0); Mean Platelet Volume 8.6; Platelet Count 258 k/uL (150-450); RBC 3.66 m/uL (4.30-5.90); RDW 16.5 % (11.5-15.5); WBC 11.4 k/uL (3.8-10.6)
[2024-02-07 09:07] LABS: African American GFR (CKD) >90 (>60 ml/min/1.73 sqM); Anion Gap 10 mmol/L; Blood Urea Nitrogen 11 mg/dL (9-20); Carbon Dioxide 18 mmol/L (22-30); Chloride 110 mmol/L (98-107); Glucose 95 mg/dL (74-99); Non-African American GFR(CKD) >90 (>60 ml/min/1.73 sqM); Potassium 3.5 mmol/L (3.5-5.1); Sodium 138 mmol/L (137-145)
[2024-02-07 11:26] LABS: Glucose,Whole Blood 112 mg/dL (70-110)
--- NOTE | 2024-02-07 12:10 | P.PN ---
Subjective Progress Note Date: 02/07/24 This is an 83-year-old male patient of Dr. Maddy Obrien with past medical history of permanent pacemaker implantation for bradycardia which was complicated by hematoma at the pacer site and subsequently underwent drainage of the hematoma. Also history of coronary artery disease with previous stent to the RCA in 2009, hypertension, dyslipidemia, diabetes mellitus insulin requiring, COPD, gastroesophageal reflux disease, benign prostatic hypertrophy.. We have been asked to evaluate the patient for infected pacemaker. Patient had a [employer] dual-chamber permanent pacemaker implantation done at [facility] on 01/07/2024 for high-grade AV block with symptoms of dizziness and lightheadedness. He subsequently had hematoma I&D with Dr. Dominguez. Patient was last seen in the office on 01/25/2024 and at that time there were no fluid accumulation and pacemaker has been checked and functioning normally. Patient apparently was found in the bathroom by his family and went to [facility] and subsequently transferred to [facility]. He had a chest x-ray done at [place] that showed a left lobe pneumonia. Patient presented with altered mental status fall and sepsis. Time on the floor was approximately 23 hours. Temperature max was 103. Patient was started on Zosyn and vancomycin before transfer. Patient is unable to recall what happened at home. He currently denies having any chest pain no shortness of breath, no palpitations, no lightheadedness or dizziness, no previous syncopal episodes, no blood in his stool or urine, no history of stroke or seizure. Blood pressure 137/89, heart rate 87, pulse ox 98% on room air, temperature max 100.2. Patient has been seen by infectious disease and antibiotic switched to cefepime and vancomycin. Patient has also been seen by Dr. Dominguez. A pacemaker wound culture has been obtained. EKG: Sinus rhythm with first-degree block, IVCD Chest x-ray: Mild left pleural effusion Laboratory studies: WBC 10.7, hemoglobin 10.6, platelet count 156. Sodium 138, potassium 3.4, chloride 108, CO2 19 BUN 24 creatinine 0.98. CK 4386 Home cardiac medications: Aspirin 81 mg daily, Lasix 40 mg daily, losartan 50 mg daily, Lopressor 25 mg twice daily, pravastatin 40 mg daily. Lexiscan Cardiolite stress test performed in the office on 05/30/2022 revealed negative stress test by EKG criteria. Abnormal nuclear scan showing fixed apica l thinning. Mild LV systolic dysfunction without ischemia. Echocardiogram performed 11/29/2015 revealed EF of 60 to 65%, mild tricuspid regurgitation, mild pulmonary hypertension, moderate concentric left ventricular hypertrophy, mild aortic valve sclerosis without stenosis, mild mitral annular calcification. Cardiac catheterization history in 2009 stent to the RCA 02/06/2024 The patient was seen and examined lying in bed. He continues to complain of significant back discomfort with minimal relief from Tylenol as ordered by primary. He has been afebrile. Blood cultures are pending. White blood cell count remains in the normal range. Patient denies shortness of breath but appears dyspneic. Denies any chest discomfort, palpitations or dizziness. Denies any orthopnea or PND. Denies any fever or chills. 02/07/2024 Patient was seen and examined resting comfortably in bed. He continues to complain of significant back discomfort. He underwent CT scan of the lumbar spine which showed severe compression fracture and was seen by Dr. Kaur with no plans for intervention at this time. All signs remained stable he has been afebrile. White blood cell count 11.4. Preliminary blood culture showed no growth after 48 hours. Objective - Vital Signs Vital signs: Vital Signs Temp 98.4 F 02/07/24 08:00 Pulse 82 02/07/24 11:34 Resp 22 02/07/24 11:34 BP 119/58 02/07/24 11:34 Pulse Ox 97 02/07/24 11:34 FiO2 Intake & Output 02/06/24 02/07/24 02/07/24 18:59 06:59 18:59 Intake Total 360 236 Output Total 1175 875 Balance -815 -875 236 Weight 92 kg Intake: Oral 360 236 Output: Urine 1175 875 Other: Voiding Method Indwelling Catheter Indwelling Catheter Indwelling Catheter - Exam Physical examination: Gen: This is an 83-year-old male who appears somewhat dyspneic VS: reviewed HEENT: Head is atraumatic, normocephalic. Pupils equal, round. Sclerae is anicteric. NECK: Supple. No JVD. LUNGS: Clear to auscultation. No wheezes or rhonchi. No intercostal retractions. HEART: Regular rate and rhythm. No murmur. Pacemaker site to the left anterior chest wall reveals a serosanguineous drainage, no erythema, no edema. ABDOMEN: Soft No tenderness. EXTREMITIES: No pedal edema. No calf tenderness. NEUROLOGICAL: Patient is awake, alert and oriented x3. - Labs CBC & Chem 7: 02/07/24 07:44 02/07/24 07:54 Labs: Abnormal Lab Results - Last 24 Hours (Table) 02/06/24 02/07/24 02/07/24 Range/Units 20:21 07:44 07:54 WBC 11.4 H (3.8-10.6) k/uL RBC 3.66 L (4.30-5.90) m/uL Hgb 9.7 L (13.0-17.5) gm/dL Hct 31.0 L (39.0-53.0) % RDW 16.5 H (11.5-15.5) % Chloride 110 H (98-107) mmol/L Carbon Dioxide 18 L (22-30) mmol/L Creatinine 0.57 L (0.66-1.25) mg/dL POC Glucose (mg/dL) 134 H (70-110) mg/dL 02/07/24 Range/Units 11:25 WBC (3.8-10.6) k/uL RBC (4.30-5.90) m/uL Hgb (13.0-17.5) gm/dL Hct (39.0-53.0) % RDW (11.5-15.5) % Chloride (98-107) mmol/L Carbon Dioxide (22-30) mmol/L Creatinine (0.66-1.25) mg/dL POC Glucose (mg/dL) 112 H (70-110) mg/dL Microbiology - Last 24 Hours (Table) 02/04/24 12:38 Blood Culture - Preliminary Blood 02/03/24 11:21 Blood Culture Gram Stain - Final Blood Blood Culture - Final Methicillin resist S. aureus Molecular ID 02/03/24 12:16 Gram Stain - Final Chest Wound Culture - Final Methicillin resist S. aureus Pseudomonas aeruginosa Assessment and Plan Assessment: Metabolic encephalopathy resolved Rhabdomyolysis Sepsis secondary to chest wall abscess at pacemaker site cultures positive for MRSA and Pseudomonas aeruginosa Recent pacemaker implantation and hematoma status post I&D Coronary artery disease with previous stent to the RCA in 2009 Hypertension Hyperlipidemia Diabetes mellitus type 2 insulin requiring COPD Remote history of tobacco use History of prostate cancer Plan: From cardiology's perspective will defer pain control to primary and orthopedics. Continue IV antibiotics per ID. Awaiting further recommendations from ID in regards to need for pacemaker extraction. We will continue to follow the patient and provide further recommendations accordingly. [employer] ACCOUNTING CLERK note has been reviewed, I agree with a documented findings and plan of care. Patient was seen and examined.
--- NOTE | 2024-02-07 12:41 | P.PN ---
Subjective Progress Note Date: 02/07/24 Principal diagnosis: Bacteremia,, chest wall abscess from pacemaker placement, T12 vertebral body compression fracture Patient was examined today at bedside, he is resting comfortably in his hospital bed, he seems more alert and awake today. He states he is feeling a lot better today. He still complains of back pain. Patient's family was again present. We had a long discussion regarding patient's overall health and medical state over the last few months. They state he has complained of back pain for a very long time. The acute fall has not helped with that obviously. Patient has a urinary catheter that was placed when he got to the hospital this remains in. Has not been out of bed in a few days. Objective - Vital Signs Vital signs: Vital Signs Temp 98.4 F 02/07/24 08:00 Pulse 82 02/07/24 11:34 Resp 22 02/07/24 11:34 BP 119/58 02/07/24 11:34 Pulse Ox 97 02/07/24 11:34 FiO2 Intake & Output 02/06/24 02/07/24 02/07/24 18:59 06:59 18:59 Intake Total 360 236 Output Total 1175 875 Balance -815 -875 236 Weight 92 kg Intake: Oral 360 236 Output: Urine 1175 875 Other: Voiding Method Indwelling Catheter Indwelling Catheter Indwelling Catheter - Exam Gen: AOx3, NAD VSS stable at this time Integument: No obvious open lesions or sores are visualized throughout the lower thoracic an d lumbar spine, no areas of erythema or soft tissue swelling Palpation: No significant tenderness both midline and paraspinal in the lower thoracic and lumbar spine ROM: Range of motion of the lower extremities slightly difficult to assess due to the patient's medical state and positioning in bed. I was able to help with active and passive range of motion of the lower extremities, no significant pain is reproduced. Negative straight leg raise bilaterally. Hip flexion along with internal and external rotation reproduce no groin pain. Sensory Exam: Senory exam to light touch is intact C5-T1 Senosry exam to light touch is intact L2-S1 Motor: 4/5 strength appreciated in the bilateral lower extremities with hip flexion, knee extension, knee flexion, plantarflexion, dorsiflexion, EHL, FHL Reflexes: 2/4 in all UE and LE Negative clonus bilaterally - Labs CBC & Chem 7: 02/07/24 07:44 02/07/24 07:54 Labs: Abnormal Lab Results - Last 24 Hours (Table) 02/06/24 02/07/24 02/07/24 Range/Units 20:21 07:44 07:54 WBC 11.4 H (3.8-10.6) k/uL RBC 3.66 L (4.30-5.90) m/uL Hgb 9.7 L (13.0-17.5) gm/dL Hct 31.0 L (39.0-53.0) % RDW 16.5 H (11.5-15.5) % Chloride 110 H (98-107) mmol/L Carbon Dioxide 18 L (22-30) mmol/L Creatinine 0.57 L (0.66-1.25) mg/dL POC Glucose (mg/dL) 134 H (70-110) mg/dL 02/07/24 Range/Units 11:25 WBC (3.8-10.6) k/uL RBC (4.30-5.90) m/uL Hgb (13.0-17.5) gm/dL Hct (39.0-53.0) % RDW (11.5-15.5) % Chloride (98-107) mmol/L Carbon Dioxide (22-30) mmol/L Creatinine (0.66-1.25) mg/dL POC Glucose (mg/dL) 112 H (70-110) mg/dL Microbiology - Last 24 Hours (Table) 02/04/24 12:38 Blood Culture Gram Stain - Preliminary Blood Blood Culture - Preliminary 02/03/24 11:21 Blood Culture Gram Stain - Final Blood Blood Culture - Final Methicillin resist S. aureus Molecular ID 02/03/24 12:16 Gram Stain - Final Chest Wound Culture - Final Methicillin resist S. 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 Chawla's and, surgical intervention is a possibility, this would include a lateral corpectomy of T12 along with posterior stabi lization T10-L2. Patient is currently being worked up for bacteremia with multiple organisms He is being followed by internal medicine, infectious disease and cardiology. I had a long discussion with both the patient and family today regarding the surgical option. I still feel conservative management is an option to start, a TLSO brace was ordered and will be fitted tomorrow. I would like the patient to be evaluated by physical therapy and occupational therapy to assess his overall activity level. Dr. Kaur will be available on 02/08/2024 to discuss more in detail surgical option with patient and family Pain control deferring to primary medical team. Would try to avoid heavier dose of narcotics due to patient's age. Can consider low-dose muscle relaxer GI and DVT prophylaxis per primary medical service PT/OT evaluation Other medical specialty recommendations appreciated Will follow patient during hospital stay Time with Patient: Less than 30
--- NOTE | 2024-02-07 15:33 | P.PN ---
Subjective Progress Note Date: 02/07/24 Principal diagnosis: Reason for follow-up is MRSA bacteremia and left chest wall abscess cellulitis Patient is 83-year-old male with a past medical history significant f or diabetes mellitus hypertension hyperlipidemia pneumonia coronary artery disease patient did have a left chest wall pacemaker placement at [facility] subsequently did have a hematoma evacuation by vascular surgery now has been transferred from outside facility with the patient presented with a fever weakness and there was drainage from his left chest wall pacemaker site. On today's evaluation that is 02/07/2024, Patient is afebrile this morning patient denies having any chest pain shortness of breath or cough, the patient is breathing comfortably on 2 L nasal cannula oxygen patient denies any abdominal pain no diarrhea no nausea no vomiting. Patient white count is 11.4, creatinine 0.57 blood culture 926 is gram positive bacilli Objective - Vital Signs Vital signs: Vital Signs Temp 98.4 F 02/07/24 08:00 Pulse 82 02/07/24 14:00 Resp 22 02/07/24 14:00 BP 119/58 02/07/24 11:34 Pulse Ox 97 02/07/24 11:34 FiO2 Intake & Output 02/06/24 02/07/24 02/07/24 18:59 06:59 18:59 Intake Total 360 458 Output Total 1175 875 Balance -815 -875 458 Weight 92 kg Intake: Oral 360 458 Output: Urine 1175 875 Other: Voiding Method Indwelling Catheter Indwelling Catheter Indwelling Catheter - Exam GENERAL DESCRIPTION: An elderly male lying in bed in no distress RESPIRATORY SYSTEM: Unlabored breathing , decreased breath sounds at bases HEART: S1 S2 regular rate and rhythm , left chest wall redness slightly decreased ABDOMEN: Soft , no tenderness EXTREMITIES: No edema feet - Labs CBC & Chem 7: 02/07/24 07:44 02/07/24 07:54 Labs: Abnormal Lab Results - Last 24 Hours (Table) 02/06/24 02/07/24 02/07/24 Range/Units 20:21 07:44 07:54 WBC 11.4 H (3.8-10.6) k/uL RBC 3.66 L (4.30-5.90) m/uL Hgb 9.7 L (13.0-17.5) gm/dL Hct 31.0 L (39.0-53.0) % RDW 16.5 H (11.5-15.5) % Chloride 110 H (98-107) mmol/L Carbon Dioxide 18 L (22-30) mmol/L Creatinine 0.57 L (0.66-1.25) mg/dL POC Glucose (mg/dL) 134 H (70-110) mg/dL 02/07/24 Range/Units 11:25 WBC (3.8-10.6) k/uL RBC (4.30-5.90) m/uL Hgb (13.0-17.5) gm/dL Hct (39.0-53.0) % RDW (11.5-15.5) % Chloride (98-107) mmol/L Carbon Dioxide (22-30) mmol/L Creatinine (0.66-1.25) mg/dL POC Glucose (mg/dL) 112 H (70-110) mg/dL Microbiology - Last 24 Hours (Table) 02/04/24 12:38 Blood Culture Gram Stain - Preliminary Blood Blood Culture - Preliminary Assessment and Plan (1) Abscess of chest wall Current Visit: Yes Status: Acute Code(s): L02.213 - CUTANEOUS ABSCESS OF CHEST WALL SNOMED Code(s): 42925461 (2) Sepsis Current Visit: Yes Status: Acute Code(s): A41.9 - SEPSIS, UNSPECIFIED ORGANISM SNOMED Code(s): 20101339 (3) MRSA bacteremia Current Visit: Yes Status: Acute Code(s): R78.81 - BACTEREMIA; B95.62 - METHICILLIN RESIS STAPH INFCT CA[facility]ING [facility]EASES [facility] Code(s): 00092415407175482 Plan: 1patient presented to hospital with sepsis in this patient who did have fever tachycardia source is likely left chest wall abscess at the site of recent pacemaker placement in this patient who did have hematoma evacuation few weeks ago however no cultures were done at that time we will need to cover for gram- positive skin anup such as MRSA to the likely pathogen gram-negative infection less likely but not entirely excluded 2blood culture positive for MRSA local culture with MRSA and Pseudomonas blood culture repeat on 02/04/2024 has been growing gram-positive bacilli more likely contamination blood cultures were repeated on 02/06/2024 those are pending 3-patient to continue with vancomycin pharmacy to dose and cefepime. Blood culture from 02/06/2024 are negative we will ask for a PICC line for outpatient IV antibiotics Dictation was produced using [employer] dictation software. please excuse any g rammatical, word or spelling errors. Time with Patient: Less than 30
[2024-02-07 16:44] LABS: Glucose,Whole Blood 162 mg/dL (70-110)
--- NOTE | 2024-02-07 20:15 | P.PN ---
Progress Note - Text Progress Note Date: 02/07/24 Chief Complaint: Found on the floor This is a pleasant 83-year-old patient, follows with [employer] Chacha Frank, with Dr. Matthews. Most of the history is obtained by patient's son Masoud who is also the POA at the bedside. About 2 weeks ago patient had a permanent pacemaker placed at [facility]. Patient is being home. Does use a walker. Lives alone. Son and his checking every night to make a meal for him. When they came in yesterday evening the patient was found on the bathroom. Patient had good been there for several hours. Patient does not remember what happened. The pacemaker site look infected. He was taken to [facility]. Diagnosed with pneumonia and sent down here. Patient does not remember the details of what happened. Patient's got some shortness of breath. Slight cough. February 03: Patient's son and [id number]-aoa at the bedside. Patient had a permanent pacemaker placed [address] ODILIA Thompson along with Dr. Gabby Dominguez 2 weeks ago at [facility]. Patient did develop a hematoma about a week ago. That was evacuated by Dr. Dominguez. Yesterday Dr. Beck from [place] drained some pus from the area. He spoke to the family today about deep infection long-term antibiotics versus possible replacement of the pacemaker. Cardiology is following. They will take a decision about the same. Some local pain. Ice pack Tylenol ordered. Eating some. February 04: Patient is having his flareup of chronic back pain. K-pad ordered. On IV cefepime IV vancomycin. Wound cultures growing Pseudomonas and MRSA. Blood culture positive for MRSA. Per cardiology at this point continue antibiotics. If bacteremia persist then pacemaker will be removed. Earlier discussed at the bedside with son and [id number]-mod. Physical therapy put the patient on a chair. Patient is iron deficiency anemia. IV Ferrlecit 3 doses. Eating fair February 05: Patient said no fever. Normal white count. Blood cultures have finalized. Answer wound culture. Repeat blood culture from February 03 devon levy Patient's son and [id number]-[id number] at the bedside. Since the fall they feel patient's chronic back pain is acutely worsened. I ordered a urgent x-ray and a CT scan. That showed T12 compression fracture reported as chronic. Topical lidocaine patch has been ordered. Orthopedic Dr. Kuar was consulted. No further intervention from the standpoint. Except pain management. Will also add scheduled Tylenol and naproxen. Otherwise patient tolerating a diet. February 06: Patient's back pain is better after using the lidocaine patch. Patient's son and [id number] at the bedside. Also eating fair. Repeat blood cultures drawn today. Culture still positive from February 03. Patient is on IV vancomycin IV cefepime. Questions answered. Decision about removing pacemaker will depend upon cultures and clinical course. Active Medications Acetaminophen (Acetaminophen Tab 500 Mg Tab) 500 mg PO Q6H [facility], [facility] Last Admin: 02/07/24 15:46 Dose: 500 mg Albuterol/Ipratropium (Ipratropium-Albuterol 3 Ml Neb) 3 ml INHALATION RT-QID [facility], [facility] Last Admin: 02/07/24 15:58 Dose: 3 ml Aspirin (Aspirin 81 Mg) 81 mg PO HS [facility], [facility] Last Admin: 02/06/24 21:33 Dose: 81 mg Bicalutamide (Bicalutamide 50 Mg Tab) 50 mg PO DAILY [facility], [facility] Last Admin: 02/07/24 09:30 Dose: 50 mg Dextrose/Water (Dextrose 50% Syringe 50 Ml) 25 ml IVP PER PROTOCOL PRN; Protocol PRN Reason: Hypoglycemia Dextrose/Water (Dextrose 50% Syringe 50 Ml) 50 ml IVP PER PROTOCOL PRN; Protocol PRN Reason: Hypoglycemia Enoxaparin Sodium (Enoxaparin 40 Mg/0.4 Ml Syringe) 40 mg SQ DAILY [facility], [facility] Last Admin: 02/07/24 09:28 Dose: 40 mg Famotidine (Famotidine 20 Mg Tab) 20 mg PO BID [facility], [facility] Last Admin: 02/07/24 09:30 Dose: 20 mg Sodium Chloride (Saline 0.9%) 1,000 mls @ 75 mls/hr IV .[id number] [facility], [facility] Last Admin: 02/07/24 06:42 Dose: 75 mls/hr Cefepime HCl 2 gm/ Sodium (Chloride) 100 mls @ 25 mls/hr IVPB Q8H [facility], [facility]; Protocol Last Admin: 02/07/24 11:35 Dose: 25 mls/hr Vancomycin HCl 1,750 mg/ (Sodium Chloride) 500 mls @ 167 mls/hr IVPB Q12H [facility] Last Admin: 02/07/24 17:36 Dose: 167 mls/hr Insulin Aspart (Insulin Aspart (Novolog) 100 Unit/Ml Vial) 0 unit SQ AC-TID [facility], [facility]; Protocol Last Admin: 02/07/24 17:22 Dose: 2 unit Insulin Detemir (Insulin Detemir (Levemir) 100 Unit/Ml Syr) 16 unit SQ DAILY@0700 [facility] Last Admin: 02/07/24 06:17 Dose: Not Given Latanoprost (Latanoprost 0.005% Ophth Drops 2.5 Ml Btl) 1 drops BOTH EYES HS [facility], [facility] Last Admin: 02/06/24 21:33 Dose: 1 drops Lidocaine (Lidocaine 4% Patch) 1 patch TOPICAL DAILY [facility], [facility]; Protocol Last Admin: 02/07/24 09:28 Dose: 1 patch Losartan Potassium (Losartan 25 Mg Tab) 25 mg PO DAILY [facility] Last Admin: 02/07/24 09:29 Dose: 25 mg Metoprolol Tartrate (Metoprolol Tartrate 25 Mg Tab) 25 mg PO BID [facility] Last Admin: 02/07/24 09:29 Dose: 25 mg Miscellaneous Information (Vancomycin Trough Due 1 Each Misc) 1 each MISCELLANE ONCE ONE Stop: 02/08/24 05:01 Naloxone HCl (Naloxone 0.4 Mg/Ml 1 Ml Vial) 0.2 mg IV Q2M PRN PRN Reason: Opioid Reversal Naproxen (Naproxen 250 Mg Tab) 250 mg PO TID [facility] Last Admin: 02/07/24 15:46 Dose: 250 mg Ondansetron HCl (Ondansetron 4 Mg/2 Ml Vial) 4 mg IVP Q8HR PRN PRN Reason: Nausea And Vomiting Oxybutynin Chloride (Oxybutynin 10 Mg Tab.Er.24) 10 mg PO DAILY [facility] Last Admin: 02/07/24 09:29 Dose: 10 mg Pantoprazole Sodium (Pantoprazole 40 Mg Tablet) 40 mg PO AC-BID [facility] Last Admin: 02/07/24 17:22 Dose: 40 mg Pravastatin Sodium (Pravastatin Sodium 40 Mg Tab) 40 mg PO DAILY [facility] Last Admin: 02/07/24 09:29 Dose: 40 mg Tamsulosin HCl (Tamsulosin 0.4 Mg Cap.Er.24h) 0.4 mg PO DAILY [facility] Last Admin: 02/07/24 09:29 Dose: 0.4 mg Social history: Lives alone. Does use a walker. Smoked 2 to 3 packs a day for close to 60 years stopped about 10 years ago. 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 Patient son Osvaldo is the POA Physical examination: VITAL SIGNS: 97.8, 90, 22, 123/69, 96% on 2 L GENERAL: Reclining in bed, comfortable EYES: Pupils equal. Conjunctiva shakira l. HEENT: External appearance of nose and ears normal, oral cavity grossly normal. Decreased hearing NECK: JVD unable to assess; masses not palpable. HEART: First and second heart sounds are normal; no edema. LUNGS: Respiratory rate increased; diminished breath sounds. ABDOMEN: Soft, nontender, liver spleen not palpable, no masses palpable. PSYCH: Able to answer simple questions CHEST wall: Dressing over the pacemaker site r MUSCULOSKELETAL:No Clubbing/cyanosis;muscles-grossly intact. OA. Increased pain lower lumbar spine with movement INVESTIGATIONS, reviewed in the clinical context: February 06: White: 0.4 hemoglobin 9.7 platelets 258 BUN [address] scan lumbar spine [January 28] severe T12 compression fracture 50%. Other DJD changes. Secondary to disc bulge and thickening of ligamentum flavum there is severe spinal stenosis at L3-L4 L4-L5. Moderate to severe bony neural foramina encroachment at L5-S1 level bilaterally. February 04: White count 8.8 hemoglobin 10.2 platelets 136 2D echocardiogram: EF 45/50%. Iron 11 TIBC 2 5 3% saturation 4.35 transferrin 181 ferritin 325 Pacemaker wound culture: Pseudomonas aeruginosa, presumptive MRSA Blood culture [February 02] MRSA. [February 03]: Positive February 03: White count 8.4 hemoglobin 10.3 platelets 144 potassium 3.3 BUN 23 creatinine 0.68 CPK 1514 iron 11 TIBC 253% saturation 4.35 transferrin 181 ferritin 325 B12 731 folate 16.7 February 02, 2024: White count 10.7 globin 10.6 platelets 156 sodium 138 potassium 3.4 bicarb 19 BUN 24 creatinine 0.98 CPK 4386 EKG tracing personally reviewed by me-very short MS interval. Intraventricular delay. Chest x-ray film personally reviewed by me-left lower lobe infiltrate Assessment plan: -Acute metabolic encephalopathy, with the patient confused was found on the floor. Likely from underlying infection from pneumonia: Improved -Infected site permanent pacemaker placed 2 weeks ago at [facility]. Hematoma was evacuated about a week ago by Dr. Dominguez. Some pus was drained by Dr. Beck on presentation.. Blood culture growing MRSA Pacemaker wound culture growing Pseudomonas aeruginosa and MRSA Repeat blood culture drawn today on February 06 IV vancomycin, IV cefepime -Sepsis with positive blood cultures, POA -Chronic gait dysfunction, uses a walker at baseline -Moderate cognitive impairment -BPH Flomax 0.4 mg a day, oxybutynin -Hypercholesteremia Pravachol 40 mg a day -severe T12 compression fracture 50%. Other DJD changes. Secondary to disc bulge and thickening of ligamentum flavum there is severe spinal stenosis at L3- L4 L4-L5. Moderate to severe bony neural foramina encroachment at L5-S1 level bilaterally.: Causing acute on chronic low back pain: New diagnosis Seen by orthopedic spine Dr. Kaur. For medical management. Lidocaine 4% patch. Started here on: Naproxen 250 mg 3 times daily.. Scheduled Tylenol 5 mg 4 times daily. Flexeril 5 mg nightly. -CAD with prior history of stent Aspirin. Beta-keiry. Protocol. -Normocytic anemia, iron deficiency anemia B12 and folate normal IV Ferrlecit-3 doses -Acute rhabdomyolysis secondary to fall IV fluids -Prostate cancer, history bicalutamide -GERD Protonix 40 mg twice daily -Diabetes mellitus type 2, chronically on insulin Lantus 16 units a day. Diabetic diet. Follow Accu-Cheks with sliding scale insulin -Essential hypertension Lopressor. Cozaar. 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 Questions answered. Past Medical History Past Medical History: Coronary Artery Disease (CAD), Cancer, Chest Pain / Angina, COPD, Diabetes Mellitus, GERD/Reflux, Hyperlipidemia, Hypertension, Pneumonia Additional Past Medical History / Comment(s): came from [facility]- (rectal bleeding) and uti. kidney stone in past,constipation, arthritis in back, anemia,prostate cancer, hands shake at times, head inj/brain bleed 2016-no sx was needed. 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
[2024-02-07 20:31] LABS: Glucose,Whole Blood 188 mg/dL (70-110)
[2024-02-07] MEDS: FUROSEMIDE 10 MG/ML 4 ML VIAL IV STA (23:09)
--- NOTE | 2024-02-08 00:37 | XR ---
EXAM: XR Chest, 1 View CLINICAL HISTORY: ITS.REASON XR Reason: Increased respiratory rate TECHNIQUE: Frontal view of the chest. COMPARISON: 02/03/2024. FINDINGS: Lungs: Prominence of central pulmonary vasculature. Interstitial prominence. No consolidation. Pleural space: Moderate left pleural effusion. No pneumothorax. Heart: Cardiomegaly. Mediastinum: Unremarkable. Normal mediastinal contour. Bones/joints: Unremarkable. No acute fracture. Tubes, lines and devices: Pacemaker overlies the left upper chest. Other findings: Hypoaeration. IMPRESSION: Cardiomegaly left pleural effusion most compatible with congestive heart failure. Clinical correlation is advised.
[2024-02-08 06:29] LABS: Glucose,Whole Blood 193 mg/dL (70-110)
--- NOTE | 2024-02-08 07:45 | XR ---
EXAMINATION TYPE: XR abdomen 2V DATE OF EXAM: 02/08/2024 HISTORY: Pain. Technique: 2 views of the abdomen are submitted. Comparison: None. Findings: There is distention of small and large bowel without definite transition zone suggesting ileus. Progr ess studies are recommended however. No sizable air-fluid levels are seen. Catheter overlies the pelvis. No mass effects are noted. No renal calcifications are identified. Basilar increased density may reflect atelectasis or infiltra tierney. IMPRESSION: 1. Nonspecific nonobstructive bowel gas pattern [facility], , 02/08/2024 7:43 AM
[2024-02-08 08:58] LABS: African American GFR (CKD) >90 (>60 ml/min/1.73 sqM); Non-African American GFR(CKD) >90 (>60 ml/min/1.73 sqM)
[2024-02-08] MEDS: FUROSEMIDE 10 MG/ML 4 ML VIAL IV STA (09:31)
[2024-02-08 10:27] LABS: Anisocytosis Slight; Basophils # (A) 0.1 k/uL (0-0.2); Basophils % (A) 1 %; Eosinophils # (A) 0.4 k/uL (0-0.7); Eosinophils % (A) 3 %; HCT 29.7 % (39.0-53.0); HGB 9.5 gm/dL (13.0-17.5); Hypochromasia Slight; Lymphocytes # (A) 1.7 k/uL (1.0-4.8); Lymphocytes % (A) 14 %; MCH 26.3 pg (25.0-35.0); MCHC 31.8 g/dL (31.0-37.0); MCV 82.7 fL (80.0-100.0); Mean Platelet Volume 9.1; Monocytes # (A) 0.8 k/uL (0-1.0); Monocytes % (A) 6 %; Neutrophils # (A) 9.6 k/uL (1.3-7.7); Neutrophils % (A) 76 %; Platelet Count 360 k/uL (150-450); RBC 3.59 m/uL (4.30-5.90); RDW 16.8 % (11.5-15.5); WBC 12.6 k/uL (3.8-10.6)
[2024-02-08 10:31] LABS: Anion Gap 8 mmol/L; Blood Urea Nitrogen 15 mg/dL (9-20); Calcium 8.4 mg/dL (8.4-10.2); Carbon Dioxide 23 mmol/L (22-30); Chloride 106 mmol/L (98-107); Glucose 185 mg/dL (74-99); Sodium 137 mmol/L (137-145)
[2024-02-08] MEDS ORDERED: Potassium Replacement Protocol 1 EACH MISC MISCELLANE PRN (11:01)
[2024-02-08 11:36] LABS: Glucose,Whole Blood 201 mg/dL (70-110)
--- NOTE | 2024-02-08 11:37 | P.GSCN ---
History of Present Illness Consult date: 02/08/24 History of present illness: CHIEF COMPLAINT: Altered mental status HISTORY OF PRESENT ILLNESS: This is an 83-year-old male who presented the hospital with altered mental status, sepsis and had been laying in the bathroom for prolonged period of time. Patient with evidence of a infection at the pacemaker site. Surgical service has been consulted in regards to abdominal distention. Apparently nursing staff during the night had noticed more distention in the abdomen and x-ray of the abdomen was ordered which had reported distention of small and large bowel without definite transition zone suggesting ileus. Patient is having flatus. No bowel movement for a few days. Denies any nausea or vomiting. Oral intake is decreased per nursing staff. Patient did have positive blood cultures for MRSA and Pseudomonas followed by infectious disease. Patient is a poor historian. His past abdominal surgical history includes a left colectomy for colon mass and an appendectomy. PAST MEDICAL HISTORY: severe T12 compression fractures, coronary disease with cardiac stent, diabetes mellitus, history of prostate cancer, hypertension, hyperlipidemia PAST SURGICAL HISTORY: Pacemaker, cardiac stent, left colectomy, appendectomy MEDICATIONS: See below ALLERGIES: See below SOCIAL HISTORY: No illicit drug use. REVIEW OF SYSTEMS: CONSTITUTIONAL: Denies fever or chills. HEENT: Denies blurred vision, vision changes, or eye pain. Denies hemoptysis CARDIOVASCULAR: Denies chest pain or pressure. RESPIRATORY: No shortness of breath. GASTROINTESTINAL: See HPI for pertinent findings HEMATOLOGIC: Denies bleeding disorders. GENITOURINARY: Denies any blood in urine or increased urinary frequency. SKIN: Denies pruitis. Denies rash. PHYSICAL EXAM: VITAL SIGNS: Reviewed GENERAL: Well-developed in no acute distress. ABDOMEN: Soft. Distended. Nontender. Tympanic NEUROLOGIC: Awake and alert. Confused. LABORATORY DATA: WBC 12.6 Hgb 9.5 platelets 360 Sodium 137 potassium is 3.0 creatinine 0.61 IMAGING: Abdominal x-ray reports distention of small and large bowel without definitive transition zone suggesting ileus ASSESSMENT: 1. Ileus with abdominal distention likely related to patient's limited mobility and electrolyte imbalance 2. Hypokalemia 3. Infection at pacemaker site 4. T12 vertebral body compression fracture, chronic. Limited mobility PLAN: -Potassium being replaced by medicine service -Increase activity level -Downgrade diet to full liquids -Continue antibiotics for acute infection Physician [employer] note has been reviewed by physician. Signing provider agrees with the documented findings, assessment, and plan of care. Past Medical History Past Medical History: Coronary Artery Disease (CAD), Cancer, Chest Pain / Angina, COPD, Diabetes Mellitus, GERD/Reflux, Hyperlipidemia, Hypertension, Pneumonia, Prostate Disorder Additional Past Medical History / Comment(s): came from [facility]- (rectal bleeding) and uti. 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, colon resection, stent let eye for glacoma Past Anesthesia/Blood Transfusion Reactions: Previous Problems w/ Anesthesia Additional Past Anesthesia/Blood Transfusion Reaction / Comm: altered mental Date of Last Stent Placement:: unk Type of Cardiac Device: Permanent Pacemaker Device Placement Date:: january 07, 2024 Smoking Status: Former smoker - Past Family History Father Family Medical History: Cancer Mother Family Medical History: Myocardial Infarction ([place]) Medications and Allergies Home Medications Medication Instructions Recorded Confirmed Type Tamsulosin HCl [Flomax] 0.4 mg PO DAILY 11/28/15 02/03/24 History Aspirin EC [Ecotrin Low Dose] 81 mg PO HS 01/02/21 02/03/24 History Insulin Glargine,Hum.rec.anlog 20 unit SQ DAILY 01/02/21 02/03/24 History [Lantus Solostar Pen] Insulin Regular, Human [NovoLIN R] See Protocol SQ AC-TID PRN 01/02/21 02/03/24 History Losartan [Cozaar] 50 mg PO DAILY 01/02/21 02/03/24 History Metoprolol Tartrate [Lopressor] 25 mg PO BID 01/02/21 02/03/24 History Oxybutynin Chloride [oxyBUTYnin 10 mg PO DAILY 01/02/21 02/03/24 History chloride ER] Pravastatin Sodium [Pravachol] 40 mg PO DAILY 01/02/21 02/03/24 History Pantoprazole Sodium [Protonix] 40 mg PO BID 60 Days tab 01/04/21 02/03/24 Rx Bicalutamide 50 mg PO DAILY 02/03/24 02/03/24 History Furosemide [Lasix] 40 mg PO DAILY 02/03/24 02/03/24 History Latanoprost [Latanoprost 0.005%] 1 drop BOTH EYES HS 02/03/24 02/03/24 History Allergies Allergy/AdvReac Type Severity Reaction Status Date / Time No Known Allergies Allergy Verified 02/03/24 08:28 Surgical - Exam Vital Signs Temp Pulse Resp BP Pulse Ox 100.2 F H 106 H 26 H 128/68 97 02/02/24 23:20 02/02/24 23:20 02/02/24 23:20 02/02/24 23:20 02/02/24 23:20 Results - Labs 02/08/24 07:15 02/08/24 07:15 Abnormal Lab Results - Last 24 Hours (Table) 02/07/24 02/07/24 02/07/24 Range/Units 11:25 16:41 20:29 Creatinine (0.66-1.25) mg/dL POC Glucose (mg/dL) 112 H 162 H 188 H (70-110) mg/dL 02/08/24 02/08/24 Range/Units 06:22 07:15 Creatinine 0.61 L (0.66-1.25) mg/dL POC Glucose (mg/dL) 193 H (70-110) mg/dL Microbiology - Last 24 Hours (Table) 02/04/24 12:38 Blood Culture Gram Stain - Final Blood Blood Culture - Final Corynebacterium species Diabetes panel 02/08/24 Range/Units 07:15 Creatinine 0.61 L (0.66-1.25) mg/dL Pituitary panel 02/08/24 Range/Units 07:15 Creatinine 0.61 L (0.66-1.25) mg/dL Adrenal panel 02/08/24 Range/Units 07:15 Creatinine 0.61 L (0.66-1.25) mg/dL
--- NOTE | 2024-02-08 12:33 | P.PN ---
Subjective Progress Note Date: 02/08/24 Principal diagnosis: Reason for follow-up is MRSA bacteremia and left chest wall abscess cellulitis Patient is 83-year-old male with a past medical history significant f or diabetes mellitus hypertension hyperlipidemia pneumonia coronary artery disease patient did have a left chest wall pacemaker placement at [facility] subsequently did have a hematoma evacuation by vascular surgery now has been transferred from outside facility with the patient presented with a fever weakness and there was drainage from his left chest wall pacemaker site. On today's evaluation that is 02/08/2024,the patient remains to be afebrile patient is slightly agitated this morning apparently he did not have any sleep last night he is breathing comfortably on the 2 L current oxygen no vomiting diarrhea any change reported by the nursing staff. Patient white count is 12.6, creatinine 0.61 Vanco trough is 15.8 blood culture repeat with the corynebacterium species Objective - Vital Signs Vital signs: Vital Signs Temp 97.8 F 02/08/24 04:22 Pulse 80 02/08/24 09:01 Resp 22 02/08/24 04:22 BP 143/67 02/08/24 04:22 Pulse Ox 97 02/08/24 04:22 FiO2 Intake & Output 02/07/24 02/08/24 02/08/24 18:59 06:59 18:59 Intake Total 458 Output Total 2074 Balance 458 -207 Weight 93.5 kg Intake: Oral 458 Output: Urine 2074 Other: Voiding Method Indwelling Catheter Indwelling Catheter - Exam GENERAL DESCRIPTION: An elderly male lying in bed in no distress RESPIRATORY SYSTEM: Unlabored breathing , decreased breath sounds at bases HEART: S1 S2 regular rate and rhythm , left chest wall redness has resolved there is a small wound pacemaker can be clearly seen in the wound bed ABDOMEN: Soft , no tenderness EXTREMITIES: No edema feet - Labs CBC & Chem 7: 02/08/24 07:15 02/08/24 07:15 Labs: Abnormal Lab Results - Last 24 Hours (Table) 02/07/24 02/07/24 02/07/24 Range/Units 11:25 16:41 20:29 WBC (3.8-10.6) k/uL RBC (4.30-5.90) m/uL Hgb (13.0-17.5) gm/dL Hct (39.0-53.0) % RDW (11.5-15.5) % Neutrophils # (1.3-7.7) k/uL Potassium (3.5-5.1) mmol/L Creatinine (0.66-1.25) mg/dL Glucose (74-99) mg/dL POC Glucose (mg/dL) 112 H 162 H 188 H (70-110) mg/dL 02/08/24 02/08/24 02/08/24 Range/Units 06:22 07:15 07:15 WBC 12.6 H (3.8-10.6) k/uL RBC 3.59 L (4.30-5.90) m/uL Hgb 9.5 L (13.0-17.5) gm/dL Hct 29.7 L (39.0-53.0) % RDW 16.8 H (11.5-15.5) % Neutrophils # 9.6 H (1.3-7.7) k/uL Potassium 3.0 L (3.5-5.1) mmol/L Creatinine 0.61 L (0.66-1.25) mg/dL Glucose 185 H (74-99) mg/dL POC Glucose (mg/dL) 193 H (70-110) mg/dL Microbiology - Last 24 Hours (Table) 02/04/24 12:38 Blood Culture Gram Stain - Final Blood Blood Culture - Final Corynebacterium species Assessment and Plan (1) Abscess of chest wall Current Visit: Yes Status: Acute Code(s): L02.213 - CUTANEOUS ABSCESS OF CHEST WALL SNOMED Code(s): 99371510 (2) Sepsis Current Visit: Yes Status: Acute Code(s): A41.9 - SEPSIS, UNSPECIFIED O RGANISM SNOMED Code(s): 54917894 (3) MRSA bacteremia Current Visit: Yes Status: Acute Code(s): R78.81 - BACTEREMIA; B95.62 - METHICILLIN RESIS STAPH INFCT CAUSING [facility]EASES [facility] Code(s): 60955727625394201 Plan: 1patient presented to hospital with sepsis in this patient who did have fever tachycardia source is likely left chest wall abscess at the site of recent pacemaker placement in this patient who did have hematoma evacuation few weeks ago however no cultures were done at that time we will need to cover for gram- positive skin anup such as MRSA to the likely pathogen gram-negative infection less likely but not entirely excluded 2blood culture positive for MRSA local culture with MRSA and Pseudomonas blood culture repeat on 02/04/2024 has been growing gram-positive bacilli more likely contamination blood cultures were repeated on 02/06/2024 those are pending 3-patient to continue with vancomycin pharmacy to dose and cefepime. We will pack the left chest wall wound with dry Aquacel however with underlying pacemaker visible clinical doubt if the wound will close Dictation was produced using [employer] dictation software. please excuse any grammatical, word or spelling errors. Time with Patient: Less than 30
[2024-02-08] MEDS: VANCOMYCIN TROUGH DUE 1 EACH MISC MISCELLANE ONE (12:58)
--- NOTE | 2024-02-08 14:11 | P.PN ---
Subjective Progress Note Date: 02/08/24 Principal diagnosis: Bacteremia,, chest wall abscess from pacemaker placement, T12 vertebral body compression fracture Patient was examined today at bedside, nursing staff was in their positioning patient. Patient has been dealing with a lot of confusion today. Reviewing case management notes, TLSO brace has been ordered. Objective - Vital Signs Vital signs: Vital Signs Temp 98.2 F 02/08/24 08:10 Pulse 84 02/08/24 11:56 Resp 22 02/08/24 08:10 BP 161/72 02/08/24 08:10 Pulse Ox 97 02/08/24 08:10 FiO2 Intake & Output 02/07/24 02/08/24 02/08/24 18:59 06:59 18:59 Intake Total 458 Output Total 2074 Balance 458 -2074 Weight 93.5 kg Intake: Oral 458 Output: Urine 2074 Other: Voiding Method Indwelling Catheter Indwelling Catheter Indwelling Catheter - Exam Gen: AOx3, NAD VSS stable at this time Integument: No obvious open lesions or sores are visualized throughout the lower thoracic an d lumbar spine, no areas of erythema or soft tissue swelling Palpation: No significant tenderness both midline and paraspinal in the lower thoracic and lumbar spine ROM: Range of motion of the lower extremities slightly difficult to assess due to the patient's medical state and positioning in bed. I was able to help with active and passive range of motion of the lower extremities, no significant pain is reproduced. Negative straight leg raise bilaterally. Hip flexion along with internal and external rotation reproduce no groin pain. Sensory Exam: Senory exam to light touch is intact C5-T1 Senosry exam to light touch is intact L2-S1 Motor: 4/5 strength appreciated in the bilateral lower extremities with hip flexion, knee extension, knee flexion, plantarflexion, dorsiflexion, EHL, FHL Reflexes: 2/4 in all UE and LE Negative clonus bilaterally - Labs CBC & Chem 7: 02/08/24 07:15 02/08/24 07:15 Labs: Abnormal Lab Results - Last 24 Hours (Table) 02/07/24 02/07/24 02/08/24 Range/Units 16:41 20:29 06:22 WBC (3.8-10.6) k/uL RBC (4.30-5.90) m/uL Hgb (13.0-17.5) gm/dL Hct (39.0-53.0) % RDW (11.5-15.5) % Neutrophils # (1.3-7.7) k/uL Potassium (3.5-5.1) mmol/L Creatinine (0.66-1.25) mg/dL Glucose (74-99) mg/dL POC Glucose (mg/dL) 162 H 188 H 193 H (70-110) mg/dL 02/08/24 02/08/24 02/08/24 Range/Units 07:15 07:15 11:34 WBC 12.6 H (3.8-10.6) k/uL RBC 3.59 L (4.30-5.90) m/uL Hgb 9.5 L (13.0-17.5) gm/dL Hct 29.7 L (39.0-53.0) % RDW 16.8 H (11.5-15.5) % Neutrophils # 9.6 H (1.3-7.7) k/uL Potassium 3.0 L (3.5-5.1) mmol/L Creatinine 0.61 L (0.66-1.25) mg/dL Glucose 185 H (74-99) mg/dL POC Glucose (mg/dL) 201 H (70-110) mg/dL Microbiology - Last 24 Hours (Table) 02/04/24 12:38 Blood Culture Gram Stain - Final Blood Blood Culture - Final Corynebacterium species Assessment and Plan Assessment: Bacteremia Acute on chronic low back pain T12 vertebral body compression fracture, chronic multilevel 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 Would try to avoid heavier dose of narcotics due to patient's age. Can consider low-dose muscle relaxer GI and DVT prophylaxis per primary medical service PT/OT evaluation. Weight-bear as tolerated with walker Other medical specialty recommendations appreciated Will follow patient during hospital stay Time with Patient: Less than 30
--- NOTE | 2024-02-08 16:15 | P.PN ---
Subjective This is an 83-year-old male patient of Dr. Maddy Obrien with past medical history of permanent pacemaker implantation for bradycardia which was complicated by hematoma at the pacer site and subsequently underwent drainage of the hematoma. Also history of coronary artery disease with previous stent to the RCA in 2009, hypertension, dyslipidemia, diabetes mellitus insulin requiring, COPD, gastroesophageal reflux disease, benign prostatic hypertrophy.. We have been asked to evaluate the patient for infected pacemaker. Patient had a [employer] dual-chamber permanent pacemaker implantation done at [facility] on 01/07/2024 for high-grade AV block with symptoms of dizziness and lightheadedness. He subsequently had hematoma I&D with Dr. Dominguez. Patient was last seen in the office on 01/25/2024 and at that time there were no fluid ac cumulation and pacemaker has been checked and functioning normally. Patient apparently was found in the bathroom by his family and went to [facility] and subsequently transferred to [facility]. He had a chest x-ray done at [facility] that showed a left lobe pneumonia. Patient presented with altered mental status fall and sepsis. Time on the floor was approximately 23 hours. Temperature max was 103. Patient was started on Zosyn and vancomycin before transfer. Patient is unable to recall what happened at home. He currently denies having any chest pain no shortness of breath, no palpitations, no lightheadedness or dizziness, no previous syncopal episodes, no blood in his st ool or urine, no history of stroke or seizure. Blood pressure 137/89, heart rate 87, pulse ox 98% on room air, temperature max 100.2. Patient has been seen by infectious disease and antibiotic switched to cefepime and vancomycin. Patient has also been seen by Dr. Dominguez. A pacemaker wound culture has been obtained. EKG: Sinus rhythm with first-degree block, IVCD Chest x-ray: Mild left pleural effusion Laboratory studies: WBC 10.7, hemoglobin 10.6, platelet count 156. Sodium 138, potassium 3.4, chloride 108, CO2 19 BUN 24 creatinine 0.98. CK 4386 Home cardiac medications: Aspirin 81 mg daily, Lasix 40 mg daily, losartan 50 mg daily, Lopressor 25 mg twice daily, pravastatin 40 mg daily. Lexiscan Cardiolite stress test performed in the office on 05/30/2022 revealed negative stress test by EKG criteria. Abnormal nuclear scan showing fixed apical thinning. Mild LV systolic dysfunction without ischemia. Echocardiogram performed 11/29/2015 revealed EF of 60 to 65%, mild tricuspid regurgitation, mild pulmonary hypertension, moderate concentric left ventricular hypertrophy, mild aortic valve sclerosis without stenosis, mild mitral annular calcification. Cardiac catheterization history in 2009 stent to the RCA 02/04 Patient is seen today in follow-up. His only complaint today is back discomfort. He denies chest pain, shortness of breath, lightheadedness or dizziness. Blood pressure 155/72, heart rate is in the 80s, pulse ox 90% on 2 L nasal cannula. Repeat blood work reveals WBC 8.8, hemoglobin 10.2, platelet count 136. Creatinine 0.54. Patient is currently on IV antibiotics in the form of cefepime and vancomycin. Wound culture and wound culture are both revealing presumptive MRSA and Pseudomonas aeruginosa. Echocardiogram reveals EF of 45%, enlarged right ventricle, biatrial enlargement, lead in the right atrium. 02/07 patient seen and examined. Patient denies any chest pain or pressure.still remains somewhat confused. Patient with active pus around his pacemaker incision which appears to track down to the pacemaker generator. Physical examination: Gen: This is an 83-year-old male in no acute distress VS: reviewed HEENT: Head is atraumatic, normocephalic. Pupils equal, round. Sclerae is anicteric. NECK: Supple. No JVD. LUNGS: Clear to auscultation. No wheezes or rhonchi. No intercostal retractions. HEART: Regular rate and rhythm. No murmur. Pacemaker site to the left anterior chest wall reveals a serosanguineous drainage, no erythema, no edema. ABDOMEN: Soft No tenderness. EXTREMITIES: No pedal edema. No calf tenderness. NEUROLOGICAL: Patient is awake, alert and oriented x3. Assessment: Metabolic encephalopathy resolved Rhabdomyolysis Sepsis secondary to chest wall abscess at pacemaker site Recent pacemaker implantation and hematoma status post I&D Coronary artery disease with previous stent to the RCA in 2009 Hypertension Hyperlipidemia Diabetes mellitus type 2 insulin requiring COPD Remote history of tobacco use History of prostate cancer MRSA bacteremia Plan: patient with pacemaker infection and active pus around his pacemaker incision. Discussed case with Dr. Thompson and given persistent bacteremia, infection and re cent pacemaker implantation would recommend extraction. Likely extraction 02/08 Objective - Vital Signs Vital signs: Vital Signs Temp 98.2 F 09/30/24 08:10 Pulse 84 02/08/24 16:03 Resp 22 02/08/24 08:10 BP 161/72 02/08/24 08:10 Pulse Ox 97 02/08/24 08:10 FiO2 Intake & Output 02/07/24 02/08/24 02/08/24 18:59 06:59 18:59 Intake Total 458 Output Total 2074 150 Balance 458 -2075 -150 Weight 93.5 kg Intake: Oral 458 Output: Urine 2074 150 Other: Voiding Method Indwelling Catheter Indwelling Catheter Indwelling Catheter - Labs CBC & Chem 7: 02/08/24 07:15 02/08/24 07:15 Labs: Abnormal Lab Results - Last 24 Hours (Table) 02/07/24 02/07/24 02/08/24 Range/Units 16:41 20:29 06:22 WBC (3.8-10.6) k/uL RBC (4.30-5.90) m/uL Hgb (13.0-17.5) gm/dL Hct (39.0-53.0) % RDW (11.5-15.5) % Neutrophils # (1.3-7.7) k/uL Potassium (3.5-5.1) mmol/L Creatinine (0.66-1.25) mg/dL Glucose (74-99) mg/dL POC Glucose (mg/dL) 162 H 188 H 193 H (70-110) mg/dL 02/08/24 02/08/24 02/08/24 Range/Units 07:15 07:15 11:34 WBC 12.6 H (3.8-10.6) k/uL RBC 3.59 L (4.30-5.90) m/uL Hgb 9.5 L (13.0-17.5) gm/dL Hct 29.7 L (39.0-53.0) % RDW 16.8 H (11.5-15.5) % Neutrophils # 9.6 H (1.3-7.7) k/uL Potassium 3.0 L (3.5-5.1) mmol/L Creatinine 0.61 L (0.66-1.25) mg/dL Glucose 185 H (74-99) mg/dL POC Glucose (mg/dL) 201 H (70-110) mg/dL Microbiology - Last 24 Hours (Table) 02/04/24 12:38 Blood Culture Gram Stain - Final Blood Blood Culture - Final Corynebacterium species
[2024-02-08 16:58] LABS: Glucose,Whole Blood 172 mg/dL (70-110)
[2024-02-08] MEDS: DOCUSATE 100 MG CAP PO SCH (17:14)
--- NOTE | 2024-02-08 17:19 | P.PN ---
Progress Note - Text Progress Note Date: 02/08/24 Chief Complaint: Found on the floor This is a pleasant 83-year-old patient, follows with [facility] Chacha Frank, with Dr. Matthews. Most of the history is obtained by patient's son Masoud who is also the POA at the bedside. About 2 weeks ago patient had a permanent pacemaker placed at [facility]. Patient is being home. Does use a walker. Lives alone. Son and his checking every night to make a meal for him. When they came in yesterday evening the patient was found on the bathroom. Patient had good been there for several hours. Patient does not remember what happened. The pacemaker site look infected. He was taken to [facility]. Diagnosed with pneumonia and sent down here. Patient does not remember the details of what happened. Patient's got some shortness of breath. Slight cough. February 03: Patient's son and irsaylhj-jn-dyq at the bedside. Patient had a permanent pacemaker placed [address] ODILIA Thompson along with Dr. Gabby Dominguez 2 weeks ago at [facility]. Patient did develop a hematoma about a week ago. That was evacuated by Dr. Dominguez. Yesterday Dr. Beck from [place] drained some pus from the area. He spoke to the family today about deep infection long-term antibiotics versus possible replacement of the pacemaker. Cardiology is following. They will take a decision about the same. Some local pain. Ice pack Tylenol ordered. Eating some. February 04: Patient is having his flareup of chronic back pain. K-pad ordered. On IV cefepime IV vancomycin. Wound cultures growing Pseudomonas and MRSA. Blood culture positive for MRSA. Per cardiology at this point continue antibiotics. If bacteremia persist then pacemaker will be removed. Earlier discussed at the bedside with son and [id number]. Physical therapy put the patient on a chair. Patient is iron deficiency anemia. IV Ferrlecit 3 doses. Eating fair February 05: Patient said no fever. Normal white count. Blood cultures have finalized. Answer wound culture. Repeat blood culture from February 03 devon levy Patient's son and kovrbkck-[id number] at the bedside. Since the fall they feel patient's chronic back pain is acutely worsened. I ordered a urgent x-ray and a CT scan. That showed T12 compression fracture reported as chronic. Topical lidocaine patch has been ordered. Orthopedic Dr. Kaur was consulted. No further intervention from the standpoint. Except pain management. Will also add scheduled Tylenol and naproxen. Otherwise patient tolerating a diet. February 06: Patient's back pain is better after using the lidocaine patch. Patient's son and [id number] at the bedside. Also eating fair. Repeat blood cultures drawn today. Culture still positive from February 03. Patient is on IV vancomycin IV cefepime. Questions answered. Decision about removing pacemaker will depend upon cultures and clinical course. February 07: Overnight patient was restless. Became short of breath. I gave her 40 mg of Lasix IV. Patient put on about 1200 cc of urine. Breathing much better today. . Slightly delirious. Did not eat much. Rather tired. Chest x- ray done overnight did show evidence of pulm edema. Abdominal x-ray showed nonspecific gas pattern. Persistent bacteremia local infection cardiology is planning for pacemaker extraction tomorrow Active Medications Acetaminophen (Acetaminophen Tab 500 Mg Tab) [address] [facility] Last Admin: 02/08/24 09:31 Dose: 500 mg Albuterol/Ipratropium (Ipratropium-Albuterol 3 Ml Neb) 3 ml INHALATION RT-QID [facility] Last Admin: 02/08/24 16:03 Dose: 3 ml Aspirin (Aspirin 81 Mg) [address] [facility] Last Admin: 02/07/24 20:46 Dose: 81 mg Bicalutamide (Bicalutamide 50 Mg Tab) [address] [facility] Last Admin: 02/08/24 13:01 Dose: 50 mg Dextrose/Water (Dextrose 50% Syringe 50 Ml) 25 ml IVP PER PROTOCOL PRN; Protocol PRN Reason: Hypoglycemia Dextrose/Water (Dextrose 50% Syringe 50 Ml) 50 ml IVP PER PROTOCOL PRN; Protocol PRN Reason: Hypoglycemia Docusate Sodium (Docusate 100 Mg Cap) [address] [facility] Enoxaparin Sodium (Enoxaparin 40 Mg/0.4 Ml Syringe) [address] [facility] Last Admin: 02/08/24 09:30 Dose: 40 mg Famotidine (Famotidine 20 Mg Tab) [address] [facility] Last Admin: 02/08/24 09:30 Dose: 20 mg Sodium Chloride (Saline 0.9%) 1,000 mls @ 10 mls/hr IV .Q24H [facility] Last Admin: 02/08/24 05:44 Dose: Not Given Cefepime HCl 2 gm/ Sodium (Chloride) 100 mls @ 25 mls/hr IVPB Q8H [facility]; Protocol Last Admin: 02/08/24 12:57 Dose: 25 mls/hr Vancomycin HCl 1,750 mg/ (Sodium Chloride) 500 mls @ 167 mls/hr IVPB Q12H [facility] Last Admin: 02/08/24 09:33 Dose: 167 mls/hr Insulin Aspart (Insulin Aspart (Novolog) 100 Unit/Ml Vial) 0 unit SQ AC-TID [facility]; Protocol Last Admin: 02/08/24 12:58 Dose: Not Given Insulin Detemir (Insulin Detemir (Levemir) 100 Unit/Ml Syr) 16 unit SQ DAILY@0700 [facility] Last Admin: 02/08/24 13:01 Dose: 16 unit Latanoprost (Latanoprost 0.005% Ophth Drops 2.5 Ml Btl) [address] [facility] Last Admin: 02/07/24 23:02 Dose: Not Given Lidocaine (Lidocaine 4% Patch) [address] [facility]; Protocol Last Admin: 02/08/24 09:30 Dose: 1 patch Losartan Potassium (Losartan 25 Mg Tab) [address] [facility] Last Admin: 02/08/24 09:30 Dose: 25 mg Metoprolol Tartrate (Metoprolol Tartrate 25 Mg Tab) [address] [facility] Last Admin: 02/08/24 09:30 Dose: 25 mg Miscellaneous Information (Potassium Replacement Protocol 1 Each Misc) 1 each MISCELLANE DAILY PRN; Protocol PRN Reason: Per Protocol Naloxone HCl (Naloxone 0.4 Mg/Ml 1 Ml Vial) 0.2 mg IV Q2M PRN PRN Reason: Opioid Reversal Naproxen (Naproxen 250 Mg Tab) [address] [facility] Last Admin: 02/08/24 09:32 Dose: 250 mg Ondansetron HCl (Ondansetron 4 Mg/2 Ml Vial) 4 mg IVP Q8HR PRN PRN Reason: Nausea And Vomiting Oxybutynin Chloride (Oxybutynin 10 Mg Tab.Er.24) [address] [facility] Last Admin: 02/08/24 09:43 Dose: 10 mg Pantoprazole Sodium (Pantoprazole 40 Mg Tablet) 40 mg PO AC-BID [facility] Last Admin: 02/08/24 07:02 Dose: 40 mg Pravastatin Sodium (Pravastatin Sodium 40 Mg Tab) [address] [facility] Last Admin: 02/08/24 09:30 Dose: 40 mg Tamsulosin HCl (Tamsulosin 0.4 Mg Cap.Er.24h) 0.[address] [facility] Last Admin: 02/08/24 09:30 Dose: 0.4 mg Social history: Lives alone. Does use a walker. Smoked 2 to 3 packs a day for close to 60 years stopped about 10 years ago. 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 Patient son Osvaldo is the POA Physical examination: VITAL SIGNS: 98.2, 90, 22, 161 x 72, 97% on 2 L GENERAL: Reclining in bed, tired, slightly delirious EYES: Pupils equal. Conjunctiva shakira l. HEENT: External appearance of nose and ears normal, oral cavity grossly normal. Decreased hearing NECK: JVD unable to assess; masses not palpable. HEART: First and second heart sounds are normal; no edema. LUNGS: Respiratory rate increased; diminished breath sounds. ABDOMEN: Soft, nontender, liver spleen not palpable, no masses palpable. PSYCH: A bit delirious CHEST wall: Dressing over the pacemaker site r MUSCULOSKELETAL:No Clubbing/cyanosis;muscles-grossly intact. OA. Increased pain lower lumbar spine with movement INVESTIGATIONS, reviewed in the clinical context: February 07: White count 12.6 hemoglobin 9.5 platelets 360 potassium 3 creatinine 0.61 February 06: White: 0.4 hemoglobin 9.7 platelets 258 BUN [address] scan lumbar spine [January 28] severe T12 compression fracture 50%. Other DJD changes. Secondary to disc bulge and thickening of ligamentum flavum there is severe spinal stenosis at L3-L4 L4-L5. Moderate to severe bony neural foramina encroachment at L5-S1 level bilaterally. February 04: White count 8.8 hemoglobin 10.2 platelets 136 2D echocardiogram: EF 45/50%. Iron 11 TIBC 2 5 3% saturation 4.35 transferrin 181 ferritin 325 Pacemaker wound culture: Pseudomonas aeruginosa, presumptive MRSA Blood culture [February 02] MRSA. [February 03]: Positive February 03: White count 8.4 hemoglobin 10.3 platelets 144 potassium 3.3 BUN 23 creatinine 0.68 CPK 1514 iron 11 TIBC 253% saturation 4.35 transferrin 181 ferritin 325 B12 731 folate 16.7 February 02, 2024: White count 10.7 globin 10.6 platelets 156 sodium 138 potassium 3.4 bicarb 19 BUN 24 creatinine 0.98 CPK 4386 EKG tracing personally reviewed by me-very short KS interval. Intraventricular delay. Chest x-ray film personally reviewed by me-left lower lobe infiltrate Assessment plan: -Acute metabolic encephalopathy, with the patient confused was found on the floor. Likely from underlying infection from pneumonia: Improved -Infected site permanent pacemaker placed 2 weeks ago at [facility]. Hematoma was evacuated about a week ago by Dr. Dominguez. Some pus was drained by Dr. Beck on presentation.. Blood culture growing MRSA Pacemaker wound culture growing Pseudomonas aeruginosa and MRSA Repeat blood culture drawn - February 06 IV vancomycin, IV cefepime Plan for pacemaker extraction tomorrow -Acute pulmonary edema, possibly from fluids: Preserved LV function new diagnosis Responded well to IV Lasix 40 mg 1 dose. IV fluids cut back. -Sepsis with positive blood cultures, POA -Chronic gait dysfunction, uses a walker at baseline -Moderate cognitive impairment -BPH Flomax 0.4 mg a day, oxybutynin -Hypercholesteremia Pravachol 40 mg a day -severe T12 compression fracture 50%. Other DJD changes. Secondary to disc bulge and thickening of ligamentum flavum there is severe spinal stenosis at L3- L4 L4-L5. Moderate to severe bony neural foramina encroachment at L5-S1 level bilaterally.: Causing acute on chronic low back pain: New diagnosis Seen by orthopedic spine Dr. Kaur. For medical management. Lidocaine 4% patch. Started here on: Naproxen 250 mg 3 times daily.. Scheduled Tylenol 5 mg 4 times daily. Flexeril 5 mg nightly. -CAD with prior history of stent Aspirin. Beta-keiry. Protocol. -Normocytic anemia, iron deficiency anemia B12 and folate normal IV Ferrlecit-3 doses -Acute rhabdomyolysis secondary to fall IV fluids -Prostate cancer, history bicalutamide -GERD Protonix 40 mg twice daily -Diabetes mellitus type 2, chronically on insulin Lantus 16 units a day. Diabetic diet. Follow Accu-Cheks with sliding scale insulin -Essential hypertension Lopressor. Cozaar. 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 kidney stone in past,constipation, arthritis in back, anemia,prostate cancer, hands shake at times, head inj/brain bleed 2016-no sx was needed. 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
[2024-02-08] MEDS: POTASSIUM CHLORIDE ER 20 MEQ TAB.ER PO SCH (17:32)
[2024-02-08 20:02] LABS: Glucose,Whole Blood 194 mg/dL (70-110)
[2024-02-09 06:07] LABS: Glucose,Whole Blood 159 mg/dL (70-110)
[2024-02-09 10:05] LABS: African American GFR (CKD) >90 (>60 ml/min/1.73 sqM); Anion Gap 7 mmol/L; Blood Urea Nitrogen 13 mg/dL (9-20); Calcium 8.4 mg/dL (8.4-10.2); Carbon Dioxide 25 mmol/L (22-30); Chloride 108 mmol/L (98-107); Glucose 150 mg/dL (74-99); Non-African American GFR(CKD) >90 (>60 ml/min/1.73 sqM); Potassium 3.2 mmol/L (3.5-5.1); Sodium 140 mmol/L (137-145)
[2024-02-09 10:25] LABS: Anisocytosis Slight; Basophils % (A) 0 %; Eosinophils # (A) 0.3 k/uL (0-0.7); Eosinophils % (A) 3 %; HCT 29.3 % (39.0-53.0); HGB 8.9 gm/dL (13.0-17.5); Hypochromasia Marked; Lymphocytes # (A) 1.2 k/uL (1.0-4.8); Lymphocytes % (A) 13 %; MCH 26.1 pg (25.0-35.0); MCHC 30.6 g/dL (31.0-37.0); MCV 85.3 fL (80.0-100.0); Mean Platelet Volume 7.6; Monocytes # (A) 0.4 k/uL (0-1.0); Monocytes % (A) 5 %; Neutrophils # (A) 7.5 k/uL (1.3-7.7); Neutrophils % (A) 77 %; Platelet Count 378 k/uL (150-450); RBC 3.43 m/uL (4.30-5.90); RDW 17.2 % (11.5-15.5); WBC 9.8 k/uL (3.8-10.6)
[2024-02-09] MEDS: LACTATED RINGERS 1,000 ML IV SCH (10:41)
[2024-02-09 11:58] LABS: Glucose,Whole Blood 175 mg/dL (70-110)
--- NOTE | 2024-02-09 13:04 | P.PN ---
Progress Note - Text Progress Note Date: 02/09/24 patient was evaluated today at bedside for recheck of the T12 vertebral body compression fracture. Patient's family was present at bedside. Patient continues to decline medically. Discussed with family at bedside, they are proceeding with hospice. Discontinue TLSO brace at this time. Our orthopedic team will be signing off at this time, please contact our service with any acute questions or concerns.
--- NOTE | 2024-02-09 13:16 | P.PN ---
Subjective HISTORY OF PRESENT ILLNESS: This is an 83-year-old male patient of Dr. Maddy Obrien with past medical history of permanent pacemaker implantation for bradycardia which was complicated by hematoma at the pacer site and subsequently underwent drainage of the hematoma. Also history of coronary artery disease with previous stent to the RCA in 2009, hypertension, dyslipidemia, diabetes mellitus insulin requiring, COPD, gastroesophageal reflux disease, benign prostatic hypertrophy.. We have been asked to evaluate the patient for infected pacemaker. Patient had a [employer] dual-chamber permanent pacemaker implantation done at [facility] on 01/07/2024 for high-grade AV block with symptoms of dizziness and lightheadedness. He subsequently had hematoma I&D with Dr. Dominguez. Patient was last seen in the office on 01/25/2024 and at that time there were no fluid accumulation and pacemaker has been checked and functioning normally. Patient apparently was found in the bathroom by his family and went to [facility] and subsequently transferred to [facility]. He had a chest x-ray done at [place] that showed a left lobe pneumonia. Patient presented with altered mental status fall and sepsis. Time on the floor was approximately 23 hours. Temperature max was 103. Patient was started on Zosyn and vancomycin before transfer. Patient is unable to recall what happened at home. He currently denies having any chest pain no shortness of breath, no palpitations, no lightheadedness or dizziness, no previous syncopal episodes, no blood in his stool or urine, no history of stroke or seizure. Blood pressure 137/89, heart rate 87, pulse ox 98% on room air, temperature max 100.2. Patient has been seen by infectious disease and antibiotic switched to cefepime and vancomycin. Patient has also been seen by Dr. Dominguez. A pacemaker wound culture has been obtained. EKG: Sinus rhythm with first-degree block, IVCD Chest x-ray: Mild left pleural effusion Laboratory studies: WBC 10.7, hemoglobin 10.6, platelet count 156. Sodium 138, potassium 3.4, chloride 108, CO2 19 BUN 24 creatinine 0.98. CK 4386 Home cardiac medications: Aspirin 81 mg daily, Lasix 40 mg daily, losartan 50 mg daily, Lopressor 25 mg twice daily, pravastatin 40 mg daily. Lexiscan Cardiolite stress test performed in the office on 05/30/2022 revealed negative stress test by EKG criteria. Abnormal nuclear scan showing fixed apical thinning. Mild LV systolic dysfunction without ischemia. Echocardiogram performed 11/29/2015 revealed EF of 60 to 65%, mild tricuspid regurgitation, mild pulmonary hypertension, moderate concentric left ventricular hypertrophy, mild aortic valve sclerosis without stenosis, mild mitral annular calcification. Cardiac catheterization history in 2009 stent to the RCA 02/04 Patient is seen today in follow-up. His only complaint today is back discomfort. He denies chest pain, shortness of breath, lightheadedness or dizziness. Blood pressure 155/72, heart rate is in the 80s, pulse ox 90% on 2 L nasal cannula. Repeat blood work reveals WBC 8.8, hemoglobin 10.2, platelet count 136. Creatinine 0.54. Patient is currently on IV antibiotics in the form of cefepime and vancomycin. Wound culture and wound culture are both revealing presumptive MRSA and Pseudomonas aeruginosa. Echocardiogram reveals EF of 45%, enlarged right ventricle, biatrial enlargement, lead in the right atrium. 02/07 patient seen and examined. Patient denies any chest pain or pressure.still remains somewhat confused. Patient with active pus around his pacemaker incision which appears to track down to the pacemaker generator. 02/09/2024 Patient examined this morning at the bedside. Patient is somewhat lethargic at the time of examination. There is no family present. Patient currently denies chest pain or pressure. He denies shortness of breath. According to the patient's nurse, patient is going hospice later this afternoon. PHYSICAL EXAM: VITAL SIGNS: Reviewed. GENERAL: Well-developed in no acute distress. NECK: Supple. No JVD or thyromegaly LUNGS: Respirations even and unlabored. Lungs essentially clear to auscultation bilaterally. HEART: Regular rate and rhythm. S1 and S2 heard. EXTREMITIES: Normal range of motion. No clubbing or cyanosis. Peripheral pulses intact. No lower extremity edema ASSESSMENT: Metabolic encephalopathy resolved Rhabdomyolysis Sepsis secondary to chest wall abscess at pacemaker site Recent pacemaker implantation and hematoma status post I&D Coronary artery disease with previous stent to the RCA in 2009 Hypertension Hyperlipidemia Diabetes mellitus type 2 insulin requiring COPD Remote history of tobacco use History of prostate cancer MRSA bacteremia PLAN: Continue current cardiac medications Patient to undergo explantation of pacemaker and leads this afternoon with Dr. Thompson and Dr. Dominguez Patient is apparently being signed onto hospice later on today Nurse practitioner note has been reviewed by physician. Signing provider agrees with the documented findings, assessment, and plan of care documented by [employer] as a scribe. Objective - Vital Signs Vital signs: Vital Signs Temp 97.7 F 02/09/24 08:00 Pulse 92 02/09/24 12:47 Resp 18 02/09/24 12:00 BP 125/58 02/09/24 12:00 Pulse Ox 96 02/09/24 12:00 FiO2 Intake & Output 02/08/24 02/09/24 02/09/24 18:59 06:59 18:59 Intake Total 0 Output Total 150 300 650 Balance -150 -300 -650 Weight 91.5 kg Intake: Oral 0 Output: Urine 150 300 650 Other: Voiding Method Indwelling Catheter Indwelling Catheter Indwelling Catheter - Labs CBC & Chem 7: 02/09/24 09:07 02/09/24 09:07 Labs: Abnormal Lab Results - Last 24 Hours (Table) 02/08/24 02/08/24 02/09/24 Range/Units 16:53 20:01 06:06 RBC (4.30-5.90) m/uL Hgb (13.0-17.5) gm/dL Hct (39.0-53.0) % MCHC (31.0-37.0) g/dL RDW (11.5-15.5) % Potassium (3.5-5.1) mmol/L Chloride (98-107) mmol/L Creatinine (0.66-1.25) mg/dL Glucose (74-99) mg/dL POC Glucose (mg/dL) 172 H 194 H 159 H (70-110) mg/dL 02/09/24 02/09/24 02/09/24 Range/Units 09:07 09:07 11:56 RBC 3.43 L (4.30-5.90) m/uL Hgb 8.9 L (13.0-17.5) gm/dL Hct 29.3 L (39.0-53.0) % MCHC 30.6 L (31.0-37.0) g/dL RDW 17.2 H (11.5-15.5) % Potassium 3.2 L (3.5-5.1) mmol/L Chloride 108 H (98-107) mmol/L Creatinine 0.56 L (0.66-1.25) mg/dL Glucose 150 H (74-99) mg/dL POC Glucose (mg/dL) 175 H (70-110) mg/dL Microbiology - Last 24 Hours (Table) 02/07/24 07:54 Blood Culture - Preliminary Blood 02/04/24 12:38 Blood Culture Gram Stain - Final Blood Blood Culture - Final Corynebacterium species
--- NOTE | 2024-02-09 13:22 | P.PN ---
Subjective Progress Note Date: 02/09/24 CHIEF COMPLAINT: Altered mental status and sepsis HISTORY OF PRESENT ILLNESS: Surgical service following in regards to abdominal ileus. Patient denies any abdominal pain. Abdomen does remain distended. Oral intake is decreased. He is having flatus. Denies any bowel movements. Patient does report his abdomen is bigger than it usually is. Afebrile. He is scheduled to have his pacemaker removed today. WBC is down from 12.6-9.8 Hgb 8.9 potassium 3.2 Patient seen and examined with Dr. Siddiqui PHYSICAL EXAM: VITAL SIGNS: Reviewed. GENERAL: no acute distress. ABDOMEN: Soft. Distended. Nontender. Tympanic ASSESSMENT: 1. Ileus with abdominal distention likely related to patient's limited mobility and electrolyte imbalance 2. Hypokalemia 3. Infection at pacemaker site 4. T12 vertebral body compression fracture, chronic. Limited mobility PLAN: -Recommend full liquid diet due to abdominal ileus -Lactulose added -Continue Colace -Increase activity level as tolerated -Continue to correct potassium -Check magnesium level and replace if low Physician Client Strategist note has been reviewed by physician. Signing provider agrees with the documented findings, assessment, and plan of care. Objective - Vital Signs Vital signs: Vital Signs Temp 97.7 F 02/09/24 08:00 Pulse 92 02/09/24 12:47 Resp 18 02/09/24 12:00 BP 125/58 02/09/24 12:00 Pulse Ox 96 02/09/24 12:00 FiO2 Intake & Output 02/08/24 02/09/24 02/09/24 18:59 06:59 18:59 Intake Total 0 Output Total 150 300 650 Balance -150 -300 -650 Weight 91.5 kg Intake: Oral 0 Output: Urine 150 300 650 Other: Voiding Method Indwelling Catheter Indwelling Catheter Indwelling Catheter - Labs CBC & Chem 7: 02/09/24 09:07 02/09/24 09:07 Labs: Abnormal Lab Results - Last 24 Hours (Table) 02/08/24 02/08/24 02/09/24 Range/Units 16:53 20:01 06:06 RBC (4.30-5.90) m/uL Hgb (13.0-17.5) gm/dL Hct (39.0-53.0) % MCHC (31.0-37.0) g/dL RDW (11.5-15.5) % Potassium (3.5-5.1) mmol/L Chloride (98-107) mmol/L Creatinine (0.66-1.25) mg/dL Glucose (74-99) mg/dL POC Glucose (mg/dL) 172 H 194 H 159 H (70-110) mg/dL 02/09/24 02/09/24 02/09/24 Range/Units 09:07 09:07 11:56 RBC 3.43 L (4.30-5.90) m/uL Hgb 8.9 L (13.0-17.5) gm/dL Hct 29.3 L (39.0-53.0) % MCHC 30.6 L (31.0-37.0) g/dL RDW 17.2 H (11.5-15.5) % Potassium 3.2 L (3.5-5.1) mmol/L Chloride 108 H (98-107) mmol/L Creatinine 0.56 L (0.66-1.25) mg/dL Glucose 150 H (74-99) mg/dL POC Glucose (mg/dL) 175 H (70-110) mg/dL Microbiology - Last 24 Hours (Table) 02/07/24 07:54 Blood Culture - Preliminary Blood 02/04/24 12:38 Blood Culture Gram Stain - Final Blood Blood Culture - Final Corynebacterium species
[2024-02-09] MEDS: SODIUM CHLORIDE 0.9% 1,000 ML IV ONE (14:25)
[2024-02-09] MEDS: LIDOCAINE 1% INJ 10MG/ML (20 ML MDV) SQ ONE (14:41)
--- NOTE | 2024-02-09 14:47 | P.PN ---
Subjective Progress Note Date: 02/09/24 Principal diagnosis: Reason for follow-up is MRSA bacteremia and left chest wall abscess cellulitis Patient is 83-year-old male with a past medical history significant f or diabetes mellitus hypertension hyperlipidemia pneumonia coronary artery disease patient did have a left chest wall pacemaker placement at [facility] subsequently did have a hematoma evacuation by vascular surgery now has been transferred from outside facility with the patient presented with a fever weakness and there was drainage from his left chest wall pacemaker site. On today's evaluation that is 02/09/2024,the patient remains to be afebrile, patient is on 2 L nasal cannula supplemental oxygen and denies any worsening shortness of breath no chest pain or cough.Patient denies having any nausea or vomiting, no abdominal pain and no diarrhea has been reported. Patient white count is 9.8, creatinine 0.56 blood culture 02/07/2024 so far negative Objective - Vital Signs Vital signs: Vital Signs Temp 97.7 F 02/09/24 08:00 Pulse 92 02/09/24 12:30 Resp 18 02/09/24 12:00 BP 125/58 02/09/24 12:00 Pulse Ox 96 02/09/24 12:00 FiO2 Intake & Output 02/08/24 02/09/24 02/09/24 18:59 06:59 18:59 Intake Total 0 Output Total 150 300 650 Balance -150 -300 -650 Weight 91.5 kg Intake: Oral 0 Output: Urine 150 300 650 Other: Voiding Method Indwelling Catheter Indwelling Catheter Indwelling Catheter - Exam GENERAL DESCRIPTION: An elderly male lying in bed in no distress RESPIRATORY SYSTEM: Unlabored breathing , decreased breath sounds at bases HEART: S1 S2 regular rate and rhythm , left chest wall redness has resolved there is a small wound pacemaker can be clearly seen in the wound bed ABDOMEN: Soft , no tenderness EXTREMITIES: No edema feet - Labs CBC & Chem 7: 02/09/24 09:07 02/09/24 09:07 Labs: Abnormal Lab Results - Last 24 Hours (Table) 02/08/24 02/08/24 02/09/24 Range/Units 16:53 20:01 06:06 RBC (4.30-5.90) m/uL Hgb (13.0-17.5) gm/dL Hct (39.0-53.0) % MCHC (31.0-37.0) g/dL RDW (11.5-15.5) % Potassium (3.5-5.1) mmol/L Chloride (98-107) mmol/L Creatinine (0.66-1.25) mg/dL Glucose (74-99) mg/dL POC Glucose (mg/dL) 172 H 194 H 159 H (70-110) mg/dL 02/09/24 02/09/24 02/09/24 Range/Units 09:07 09:07 11:56 RBC 3.43 L (4.30-5.90) m/uL Hgb 8.9 L (13.0-17.5) gm/dL Hct 29.3 L (39.0-53.0) % MCHC 30.6 L (31.0-37.0) g/dL RDW 17.2 H (11.5-15.5) % Potassium 3.2 L (3.5-5.1) mmol/L Chloride 108 H (98-107) mmol/L Creatinine 0.56 L (0.66-1.25) mg/dL Glucose 150 H (74-99) mg/dL POC Glucose (mg/dL) 175 H (70-110) mg/dL Microbiology - Last 24 Hours (Table) 02/07/24 07:54 Blood Culture - Preliminary Blood 02/04/24 12:38 Blood Culture Gram Stain - Final Blood Blood Culture - Final Corynebacterium species Assessment and Plan (1) Abscess of chest wall Current Visit: Yes Status: Acute Code(s): L02.213 - CUTANEOUS ABSCESS OF CHEST WALL SNOMED Code(s): 59902489 (2) Sepsis Current Visit: Yes Status: Acute Code(s): A41.9 - SEPSIS, UNSPECIFIED ORGANISM SNOMED Code(s): 34840499 (3) MRSA bacteremia Current Visit: Yes Status: Acute Code(s): R78.81 - BACTEREMIA; B95.62 - METHICILLIN RESIS STAPH INFCT CAUSING DISEASES CLASSD ELSR SNOMED Code(s): 34556004684244926 Plan: 1patient presented to hospital with sepsis in this patient who did have fever tachycardia source is likely left chest wall abscess at the site of recent pacemaker placement in this patient who did have hematoma evacuation few weeks ago however no cultures were done at that time we will need to cover for gram- positive skin anup such as MRSA to the likely pathogen gram-negative infection less likely but not entirely excluded 2blood culture positive for MRSA local culture with MRSA and Pseudomonas blood culture repeat on 02/04/2024 has been growing gram-positive bacilli more likely contamination blood cultures were repeated on 02/07/2024 those are pending 3-patient care has been discussed in detail with the pricing specialist this morning plan is for removal of the infected pacemaker and lead followed by course of IV antibiotic therapy family the bedside question concern answered continue with the vancomycin cefepime at this point Dictation was produced using [employer] dictation software. please excuse any grammatical, word or spelling errors. Time with Patient: Less than 30
--- NOTE | 2024-02-09 15:01 | P.PN ---
Progress Note - Text Progress Note Date: 02/09/24 Chief Complaint: Found on the floor This is a pleasant 83-year-old patient, follows with BAG SHAKER Chacha Frank, with Dr. Matthews. Most of the history is obtained by patient's son Masoud who is also the POA at the bedside. About 2 weeks ago patient had a permanent pacemaker placed at [facility]. Patient is being home. Does use a walker. Lives alone. Son and his checking every night to make a meal for him. When they came in yesterday evening the patient was found on the bathroom. Patient had good been there for several hours. Patient does not remember what happened. The pacemaker site look infected. He was taken to [facility]. Diagnosed with pneumonia and sent down here. Patient does not remember the details of what happened. Patient's got some shortness of breath. Slight cough. February 03: Patient's son and [id number] at the bedside. Patient had a permanent pacemaker placed [address] ODLIIA Thompson along with Dr. Gabby Dominguez 2 weeks ago at [facility]. Patient did develop a hematoma about a week ago. That was evacuated by Dr. Dominguez. Yesterday Dr. Beck from [place] drained some pus from the area. He spoke to the family today about deep infection long-term antibiotics versus possible replacement of the pacemaker. Cardiology is following. They will take a decision about the same. Some local pain. Ice pack Tylenol ordered. Eating some. February 04: Patient is having his flareup of chronic back pain. K-pad ordered. On IV cefepime IV vancomycin. Wound cultures growing Pseudomonas and MRSA. Blood culture positive for MRSA. Per cardiology at this point continue antibiotics. If bacteremia persist then pacemaker will be removed. Earlier discussed at the bedside with son and shumzpju-qb-rby. Physical therapy put the patient on a chair. Patient is iron deficiency anemia. IV Ferrlecit 3 doses. Eating fair February 05: Patient said no fever. Normal white count. Blood cultures have finalized. Answer wound culture. Repeat blood culture from February 03 devon levy Patient's son and [id number]-[id number] at the bedside. Since the fall they feel patient's chronic back pain is acutely worsened. I ordered a urgent x-ray and a CT scan. That showed T12 compression fracture reported as chronic. Topical lidocaine patch has been ordered. Orthopedic Dr. Kaur was consulted. No further intervention from the standpoint. Except pain management. Will also add scheduled Tylenol and naproxen. Otherwise patient tolerating a diet. February 06: Patient's back pain is better after using the lidocaine patch. Patient's son and [id number] at the bedside. Also eating fair. Repeat blood cultures drawn today. Culture still positive from February 03. Patient is on IV vancomycin IV cefepime. Questions answered. Decision about removing pacemaker will depend upon cultures and clinical course. February 07: Overnight patient was restless. Became short of breath. I gave her 40 mg of Lasix IV. Patient put on about 1200 cc of urine. Breathing much better today. . Slightly delirious. Did not eat much. Rather tired. Chest x- ray done overnight did show evidence of pulm edema. Abdominal x-ray showed nonspecific gas pattern. Persistent bacteremia local infection cardiology is planning for pacemaker extraction tomorrow February 08: Patient somewhat restless confused last night. Breathing is better. Eating some. Remains a bit delirious. Patient's son and [id number] at the bedside. They understand patient prognosis guarded. Lengthy discussion with them. Decided to proceed with hospice. I the question about the pacemaker still being removed. I spoke to Dr. ODILIA Thompson from cardiology. Pacemaker will be removed to hopefully make the symptoms of infection better. They will prefer the patient go to [facility]. Spoke to the director social welfare. I Active Medications Acetaminophen (Acetaminophen Tab 500 Mg Tab) 500 mg PO Q6H FOR[facility], [facility] Last Admin: 02/09/24 08:49 Dose: 500 mg Albuterol/Ipratropium (Ipratropium-Albuterol 3 Ml Neb) 3 ml INHALATION RT-QID FOR[facility], [facility]1983 Last Admin: 02/09/24 12:30 Dose: 3 ml Aspirin (Aspirin 81 Mg) 81 mg PO HS FOR[facility], [facility] Last Admin: 02/08/24 20:15 Dose: 81 mg Bicalutamide (Bicalutamide 50 Mg Tab) 50 mg PO DAILY [facility], [facility] Last Admin: 02/09/24 08:49 Dose: 50 mg Dextrose/Water (Dextrose 50% Syringe 50 Ml) 25 ml IVP PER PROTOCOL PRN; Protocol PRN Reason: Hypoglycemia Dextrose/Water (Dextrose 50% Syringe 50 Ml) 50 ml IVP PER PROTOCOL PRN; Protocol PRN Reason: Hypoglycemia Docusate Sodium (Docusate 100 Mg Cap) 100 mg PO BID [facility], [facility]1983 Last Admin: 02/09/24 08:50 Dose: 100 mg Enoxaparin Sodium (Enoxaparin 40 Mg/0.4 Ml Syringe) 40 mg SQ DAILY [facility], [facility]1983 Last Admin: 02/08/24 09:30 Dose: 40 mg Famotidine (Famotidine 20 Mg Tab) 20 mg PO BID [facility], [facility] Last Admin: 02/09/24 08:50 Dose: 20 mg Cefepime HCl 2 gm/ Sodium (Chloride) 100 mls @ 25 mls/hr IVPB Q8H [facility], [facility]; Protocol Last Admin: 02/09/24 11:19 Dose: 25 mls/hr Vancomycin HCl 1,750 mg/ (Sodium Chloride) 500 mls @ 167 mls/hr IVPB Q12H [facility], [facility] Last Admin: 02/09/24 06:48 Dose: 167 mls/hr Lactated Ringer's (Lactated Ringers) 1,000 mls @ 50 mls/hr IV .Q20H [facility], [facility] Last Admin: 02/09/24 10:41 Dose: Not Given Insulin Aspart (Insulin Aspart (Novolog) 100 Unit/Ml Vial) 0 unit SQ AC-TID [facility], [facility]; Protocol Last Admin: 02/09/24 11:16 Dose: Not Given Insulin Detemir (Insulin Detemir (Levemir) 100 Unit/Ml Syr) 16 unit SQ DA JENNIFER@0700 FOR[facility], [facility] Last Admin: 02/09/24 06:26 Dose: Not Given Lactulose (Lactulose 20 Gm/30 Ml Cup) 30 gm PO DAILY [facility], [facility] Latanoprost (Latanoprost 0.005% Ophth Drops 2.5 Ml Btl) 1 drops BOTH EYES HS FOR[facility], [facility]1983 Last Admin: 02/08/24 20:25 Dose: 1 drops Lidocaine (Lidocaine 4% Patch) 1 patch TOPICAL DAILY [facility], [facility]; Protocol Last Admin: 02/09/24 08:49 Dose: 1 patch Losartan Potassium (Losartan 25 Mg Tab) 25 mg PO DAILY [facility] Last Admin: 02/09/24 08:50 Dose: 25 mg Metoprolol Tartrate (Metoprolol Tartrate 25 Mg Tab) 25 mg PO BID [facility] Last Admin: 02/08/24 09:30 Dose: 25 mg Miscellaneous Information (Potassium Replacement Protocol 1 Each Misc) 1 each MISCELLANE DAILY PRN; Protocol PRN Reason: Per Protocol Naloxone HCl (Naloxone 0.4 Mg/Ml 1 Ml Vial) 0.2 mg IV Q2M PRN PRN Reason: Opioid Reversal Naproxen (Naproxen 250 Mg Tab) 250 mg PO TID [facility] Last Admin: 02/09/24 08:50 Dose: 250 mg Ondansetron HCl (Ondansetron 4 Mg/2 Ml Vial) 4 mg IVP Q8HR PRN PRN Reason: Nausea And Vomiting Oxybutynin Chloride (Oxybutynin 10 Mg Tab.Er.24) 10 mg PO DAILY [facility], [facility] Last Admin: 02/09/24 08:50 Dose: 10 mg Pantoprazole Sodium (Pantoprazole 40 Mg Tablet) 40 mg PO AC-BID [facility] Last Admin: 02/09/24 06:48 Dose: 40 mg Pravastatin Sodium (Pravastatin Sodium 40 Mg Tab) 40 mg PO DAILY [facility] Last Admin: 02/09/24 08:50 Dose: 40 mg Tamsulosin HCl (Tamsulosin 0.4 Mg Cap.Er.24h) 0.4 mg PO DAILY [facility], [facility] Last Admin: 02/09/24 08:49 Dose: 0.4 mg Social history: Lives alone. Does use a walker. Smoked 2 to 3 packs a day for close to 60 years stopped about 10 years ago. 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 Patient son Osvaldo is the POA Physical examination: VITAL SIGNS: 97.7, 95, 18, 149 x 69, 96% on 2 L GENERAL: Reclining in bed, tired, a bit delirious EYES: Pupils equal. Conjunctiva shakira l. HEENT: External appearance of nose and ears normal, oral cavity grossly normal. Decreased hearing NECK: JVD unable to assess; masses not palpable. HEART: First and second heart sounds are normal; no edema. LUNGS: Respiratory rate increased; diminished breath sounds. ABDOMEN: Soft, nontender, liver spleen not palpable, no masses palpable. PSYCH: Will answer simple questions. A bit delirious. CHEST wall: Dressing over the pacemaker site r MUSCULOSKELETAL:No Clubbing/cyanosis;muscles-grossly intact. OA. Increased pain lower lumbar spine with movement INVESTIGATIONS, reviewed in the clinical context: February 08: White count 9.8. Hemoglobin 8.9. Potassium 3.2. Creatinine 0.56 February 07: White count 12.6 hemoglobin 9.5 platelets 360 potassium 3 creatinine 0.61 February 06: White: 0.4 hemoglobin 9.7 platelets 258 BUN [address] scan lumbar spine [January 28] severe T12 compression fracture 50%. Other DJD changes. Secondary to disc bulge and thickening of ligamentum flavum there is severe spinal stenosis at L3-L4 L4-L5. Moderate to severe bony neural foramina encroachment at L5-S1 level bilaterally. February 04: White count 8.8 hemoglobin 10.2 platelets 136 2D echocardiogram: EF 45/50%. Iron 11 TIBC 2 5 3% saturation 4.35 transferrin 181 ferritin 325 Pacemaker wound culture: Pseudomonas aeruginosa, presumptive MRSA Blood culture [February 02] MRSA. [February 03]: Positive February 03: White count 8.4 hemoglobin 10.3 platelets 144 potassium 3.3 BUN 23 creatinine 0.68 CPK 1514 iron 11 TIBC 253% saturation 4.35 transferrin 181 ferritin 325 B12 731 folate 16.7 February 02, 2024: White count 10.7 globin 10.6 platelets 156 sodium 138 potassium 3.4 bicarb 19 BUN 24 creatinine 0.98 CPK 4386 EKG tracing personally reviewed by me-very short IL interval. Intraventricular delay. Chest x-ray film personally reviewed by me-left lower lobe infiltrate Assessment plan: -Acute metabolic encephalopathy, with the patient confused was found on the floor. Likely from underlying infection from pneumonia: And also delirium. Fluctuating -Infected site permanent pacemaker placed 2 weeks ago at [facility]. Hematoma was evacuated about a week ago by Dr. Dominguez. Some pus was drained by Dr. Beck on presentation.. Blood culture growing MRSA Pacemaker wound culture growing Pseudomonas aeruginosa and MRSA Repeat blood culture drawn - February 06 IV vancomycin, IV cefepime Plan for pacemaker extraction today -Acute pulmonary edema, possibly from fluids: Preserved LV function: Resolved Responded well to IV Lasix 40 mg 1 dose. IV fluids cut back. -Sepsis with positive blood cultures, POA -Chronic gait dysfunction, uses a walker at baseline -Moderate cognitive impairment -BPH Flomax 0.4 mg a day, oxybutynin -Hypercholesteremia Pravachol 40 mg a day -severe T12 compression fracture 50%. Other DJD changes. Secondary to disc bulge and thickening of ligamentum flavum there is severe spinal stenosis at L3- L4 L4-L5. Moderate to severe bony neural foramina encroachment at L5-S1 level bilaterally.: Causing acute on chronic low back pain: Seen by orthopedic spine Dr. Kaur. For medical management. Lidocaine 4% patch. Started here on: Naproxen 250 mg 3 times daily.. Scheduled Tylenol 5 mg 4 times daily. Flexeril 5 mg nightly. -CAD with prior history of stent Aspirin. Beta-keiry. Protocol. -Normocytic anemia, iron deficiency anemia B12 and folate normal IV Ferrlecit-3 doses -Acute rhabdomyolysis secondary to fall IV fluids -Prostate cancer, history bicalutamide -GERD Protonix 40 mg twice daily -Diabetes mellitus type 2, chronically on insulin Lantus 16 units a day. Diabetic diet. Follow Accu-Cheks with sliding scale insulin -Essential hypertension Lopressor. Cozaar. -Permanent pacemaker -DNR-to be discharged with hospice tomorrow -Power of divorce attorney, shawna Riley Advance care planning [February 09, 2024] Discussed with patient's son Osvaldo and his at the bedside. They understand patient's not doing too well. His quality of life is not good. His also was under hospice. After lengthy discussion they have decided to proceed with hospice. No further antibiotics. I spoke to Dr. ODILIA Thompson who will take out the pacemaker this afternoon to make the patient more comfortable. The looking to take the patient [place] ordered hospice. fat purification worker Marianne senior ed. Questions answered. Planning for discharge tomorrow with hospice Advance care planning time taken about 25 minutes Past Medical History Past Medical History: Coronary Artery Disease (CAD), Cancer, Chest Pain / Angina, COPD, Diabetes Mellitus, GERD/Reflux, Hyperlipidemia, Hypertension, Pneumonia Additional Past Medical History / Comment(s): came from [facility]- (rectal bleeding) and uti. kidney stone in past,constipation, arthritis in back, anemia,prostate cancer, hands shake at times, head inj/brain bleed 2016-no sx was needed. History of Any Multi-Drug Resistant Organisms: None Reported Past Surgical History: Appendectomy, Heart Catheterization With Stent Additional Past Surgical History / Comment(s): orif rt ankle(metal inpalce), era cataracts, 2 cardiac stents to prox jar filler Past Anesthesia/Blood Transfusion Reactions: No Reported Reaction Date of Last Stent Placement:: unk Past Psychological History: Depression Past Alcohol Use History: None Reported Past Drug Use History: None Reported
[2024-02-09 15:31] VITALS: BMI 30.7
[2024-02-09 16:57] LABS: Glucose,Whole Blood 141 mg/dL (70-110)
[2024-02-09] MEDS: POTASSIUM CHLORIDE ER 20 MEQ TAB.ER PO STA (17:44)
[2024-02-09] MEDS: LACTULOSE 20 GM/30 ML CUP PO SCH (17:45)
[2024-02-09] MEDS ORDERED: LORazepam 1 MG TAB PO PRN (20:20)
[2024-02-09 20:35] LABS: Glucose,Whole Blood 160 mg/dL (70-110)
[2024-02-09 22:50] LABS: Glucose,Whole Blood 156 mg/dL (70-110)
[2024-02-10] MEDS: LORazepam 2 MG/ML INJ IV PRN (00:05)
[2024-02-10 00:33] LABS: Anisocytosis Slight; HGB 7.7 gm/dL (13.0-17.5); Hypochromasia Marked; MCH 25.9 pg (25.0-35.0); MCHC 30.7 g/dL (31.0-37.0); MCV 84.3 fL (80.0-100.0); Mean Platelet Volume 7.8; Platelet Count 369 k/uL (150-450); RBC 2.96 m/uL (4.30-5.90); RDW 17.1 % (11.5-15.5); WBC 10.1 k/uL (3.8-10.6)
[2024-02-10] MEDS: HALOPERIDOL LACTATE 5 MG/ML 1 ML VIAL IM STA (02:01)
[2024-02-10] MEDS ORDERED: HALOPERIDOL LACTATE 5 MG/ML 1 ML VIAL IM STA (05:44)
[2024-02-10 06:29] LABS: Anisocytosis Slight; HCT 22.6 % (39.0-53.0); Hypochromasia Marked; MCH 26.7 pg (25.0-35.0); MCHC 31.1 g/dL (31.0-37.0); MCV 85.7 fL (80.0-100.0); Mean Platelet Volume 7.9; Platelet Count 324 k/uL (150-450); RBC 2.63 m/uL (4.30-5.90); RDW 17.4 % (11.5-15.5); WBC 10.1 k/uL (3.8-10.6)
[2024-02-10 06:59] LABS: Glucose,Whole Blood 163 mg/dL (70-110)
--- NOTE | 2024-02-10 09:31 | CE ---
CARDIAC ELECTROPHYSIOLOGY REPORT PROCEDURES: 1. Explantation of dual-chamber pulse generator. 2. Unscrewing and removal of atrial and ventricular leads off a dual-chamber pacemaker. PERFORMED BY: Dr. Justin Dominguez. Assisted by Dr. Orlando Thompson. CLINICAL INFORMATION: Mr. Keshav Melton is an 83-year-old gentleman with multiple medical problems, who underwent a permanent pacemaker because of sinus pauses on January 06 at [facility]. He had a hematoma following the procedure, which was then evacuated 2 weeks later and then had a fall and was on the floor lying on the pacemaker for nearly 8 to 10 hours. However, he ended up with a Staph aureus bacteremia and after due discussion with the Infectious Disease specialist, Dr. Green, it was felt that removal of the device and the pacemaker leads would help in clearing the infection better. With this in mind, I came and saw the patient both yesterday and today and also discussed with the patient in person and with his son by phone. The patient's son is Masoud Melton. I explained to them the rationale for removal of the device and if he stabilizes 6 weeks later after IV antibiotics, we can try to put another pacemaker if necessary. He was therefore brought in for the procedure electively. There was some discussion about hospice as well today, but I suggested that to take the device out as well as the leads out will help clear the infection quickly and therefore he was brought in for the procedure. DESCRIPTION OF PROCEDURE: Under strict aseptic precautions and local anesthesia with sedation, a linear incision was made over the pacemaker site and the pulse generator as well as the leads were exposed. Good hemostasis was secured. The pulse generator was from the 2 leads by screwing the leads out. I then also took each lead out under fluoroscopic guidance by unscrewing them. Both leads were unscrewed under fluoroscopic guidance and leads were taken out. Hemostasis was secured. The entire wound was irrigated with antibiotic thoroughly. At the time of the procedure, the patient received intravenous cefepime 2 g as well as had received vancomycin a couple of hours ago. The wound was then closed by Dr. Dominguez in a single layer with 3-0 silk sutures. Good hemostasis was secured. Details of the procedure and the results were discussed with the patient and his family. He was sent back to the room in a stable condition. Moderate conscious sedation time was 45 minutes. The patient was administered Versed, oxygen saturation, hemodynamics, and EKG were monitored closely. Explanted pacemaker device was a Medtronic device, model W3DR01, serial number [id number]. Atrial lead that was taken out, hardwood floor refinisher was [employer], serial number [id number]. The ventricular lead that was taken out was also manufactured by [employer], serial number [id number]. The patient tolerated the procedure well without complications. MMODL / IJN: [id number] / MTDD
--- NOTE | 2024-02-10 11:20 | P.PN ---
Subjective Progress Note Date: 02/10/24 Principal diagnosis: Reason for follow-up is MRSA bacteremia and left chest wall abscess cellulitis Patient is 83-year-old male with a past medical history significant f or diabetes mellitus hypertension hyperlipidemia pneumonia coronary artery disease patient did have a left chest wall pacemaker placement at [facility] subsequently did have a hematoma evacuation by vascular surgery now has been transferred from outside facility with the patient presented with a fever weakness and there was drainage from his left chest wall pacemaker site.Patient did have extraction of the pacemaker and the lead this morning , patient did have bleeding from the left chest wall pressure dressing has been applied as reported by the nursing staff On today's evaluation that is February 10, 2024 the patient has been afebrile the patient is lethargic not able to provide any history he is currently on 3 L nasal current oxygen seem to be slightly restless no vomiting or diarrhea has been reported. Patient white count is 10.1 blood culture repeat has been negative Objective - Vital Signs Vital signs: Vital Signs Temp 97.7 F 02/09/24 08:00 Pulse 96 02/10/24 08:16 Resp 20 02/10/24 04:00 BP 148/65 02/10/24 04:00 Pulse Ox 96 02/10/24 04:00 FiO2 Intake & Output 02/09/24 02/10/24 02/10/24 18:59 06:59 18:59 Intake Total 50 Output Total 1425 600 Balance -1375 -600 Weight 91.5 kg Intake: IV 50 Output: Urine 1425 600 Other: Voiding Method Indwelling Catheter Indwelling Catheter - Exam GENERAL DESCRIPTION: An elderly male lying in bed in no distress RESPIRATORY SYSTEM: Unlabored breathing , decreased breath sounds at bases HEART: S1 S2 regular rate and rhythm , left chest wall covered with a pressure dressing ABDOMEN: Soft , no tenderness EXTREMITIES: No edema feet - Labs CBC & Chem 7: 02/10/24 05:58 02/09/24 09:07 Labs: Abnormal Lab Results - Last 24 Hours (Table) 02/09/24 02/09/24 02/09/24 Range/Units 11:56 16:55 20:34 RBC (4.30-5.90) m/uL Hgb (13.0-17.5) gm/dL Hct (39.0-53.0) % MCHC (31.0-37.0) g/dL RDW (11.5-15.5) % POC Glucose (mg/dL) 175 H 141 H 160 H (70-110) mg/dL Crossmatch 02/09/24 02/09/24 02/10/24 Range/Units 22:21 22:48 05:58 RBC 2.96 L 2.63 L (4.30-5.90) m/uL Hgb 7.7 L 7.0 L (13.0-17.5) gm/dL Hct 25.0 L 22.6 L (39.0-53.0) % MCHC 30.7 L (31.0-37.0) g/dL RDW 17.1 H 17.4 H (11.5-15.5) % POC Glucose (mg/dL) 156 H (70-110) mg/dL Crossmatch 02/10/24 02/10/24 Range/Units 06:58 10:00 RBC (4.30-5.90) m/uL Hgb (13.0-17.5) gm/dL Hct (39.0-53.0) % MCHC (31.0-37.0) g/dL RDW (11.5-15.5) % POC Glucose (mg/dL) 163 H (70-110) mg/dL Crossmatch See Detail Microbiology - Last 24 Hours (Table) 02/07/24 07:54 Blood Culture - Preliminary Blood Assessment and Plan (1) Abscess of chest wall Current Visit: Yes Status: Acute Code(s): L02.213 - CUTANEOUS ABSCESS OF CHEST WALL SNOMED Code(s): 89902693 (2) Sepsis Current Visit: Yes Status: Acute Code(s): A41.9 - SEPSIS, UNSPECIFIED ORGANISM SNOMED Code(s): 38731983 (3) MRSA bacteremia Current Visit: Yes Status: Acute Code(s): R78.81 - BACTEREMIA; B95.62 - METHICILLIN RESIS STAPH INFCT CAUSING DISEASES CLASSD ELSR SNOMED Code(s): 01066446244129528 Plan: 1patient presented to hospital with sepsis in this patient who did have fever tachycardia source is likely left chest wall abscess at the site of recent pacem beth placement in this patient who did have hematoma evacuation few weeks ago however no cultures were done at that time we will need to cover for gram- positive skin anup such as MRSA to the likely pathogen gram-negative infection less likely but not entirely excluded 2blood culture positive for MRSA local culture with MRSA and Pseudomonas blood culture repeat on 02/04/2024 has been growing gram-positive bacilli more likely contamination blood cultures were repeated on 02/07/2024 those are pending 3-patient did have extraction of the infected pacemaker and the leads family was considering hospice as per discussion with the admitting physician yesterday if that is the case antibiotics can be safely discontinued currently covered with the vancomycin and cefepime discussed with the nursing staff Dictation was produced using [employer] dictation software. please excuse any grammatical, word or spelling errors. Time with Patient: Less than 30
[2024-02-10 11:21] VITALS: TEMP 97.6
[2024-02-10 11:49] LABS: Glucose,Whole Blood 164 mg/dL (70-110)
[2024-02-10 13:35] VITALS: BP 103/57; RESP 22
--- NOTE | 2024-02-10 13:38 | P.PN ---
Subjective Progress Note Date: 02/10/24 CHIEF COMPLAINT: Altered mental status and sepsis HISTORY OF PRESENT ILLNESS: Surgical service following in regards to abdominal ileus. Patient denies any abdominal pain. Patient is having flatus. Abdomen appears softer. No nausea or vomiting. Patient had infected pacemaker removed yesterday by cardiology. Patient did have bleeding at the pacemaker site today. Family was considering possible hospice. Hemoglobin 7.0 magnesium 2.0 PHYSICAL EXAM: VITAL SIGNS: Reviewed. GENERAL: no acute distress. ABDOMEN: Softer. Less distended. Nontender. ASSESSMENT: 1. Ileus with abdominal distention likely related to patient's limited mobility and electrolyte imbalance 2. Hypokalemia 3. Infection at pacemaker site 4. T12 vertebral body compression fracture, chronic. Limited mobility PLAN: -Continue lactulose and Colace -Recommend full liquid diet due to abdominal ileus -Increase activity level as tolerated -Continue to correct electrolytes Physician Explosive Ordnance Technician note has been reviewed by physician. Signing provider agrees with the documented findings, assessment, and plan of care. Objective - Vital Signs Vital signs: Vital Signs Temp 97.6 F 02/10/24 12:00 Pulse 108 H 02/10/24 12:00 Resp 22 02/10/24 12:00 BP 103/57 02/10/24 12:00 Pulse Ox 98 02/10/24 12:00 FiO2 Intake & Output 02/09/24 02/10/24 02/10/24 18:59 06:59 18:59 Intake Total 50 Output Total 1425 600 Balance -1375 -600 Weight 91.5 kg Intake: IV 50 Output: Urine 1425 600 Other: Voiding Method Indwelling Catheter Indwelling Catheter Indwelling Catheter - Labs CBC & Chem 7: 02/10/24 05:58 02/09/24 09:07 Labs: Abnormal Lab Results - Last 24 Hours (Table) 02/09/24 02/09/24 02/09/24 Range/Units 16:55 20:34 22:21 RBC 2.96 L (4.30-5.90) m/uL Hgb 7.7 L (13.0-17.5) gm/dL Hct 25.0 L (39.0-53.0) % MCHC 30.7 L (31.0-37.0) g/dL RDW 17.1 H (11.5-15.5) % POC Glucose (mg/dL) 141 H 160 H (70-110) mg/dL Crossmatch 02/09/24 02/10/24 02/10/24 Range/Units 22:48 05:58 06:58 RBC 2.63 L (4.30-5.90) m/uL Hgb 7.0 L (13.0-17.5) gm/dL Hct 22.6 L (39.0-53.0) % MCHC (31.0-37.0) g/dL RDW 17.4 H (11.5-15.5) % POC Glucose (mg/dL) 156 H 163 H (70-110) mg/dL Crossmatch 02/10/24 02/10/24 Range/Units 10:00 11:46 RBC (4.30-5.90) m/uL Hgb (13.0-17.5) gm/dL Hct (39.0-53.0) % MCHC (31.0-37.0) g/dL RDW (11.5-15.5) % POC Glucose (mg/dL) 164 H (70-110) mg/dL Crossmatch See Detail Microbiology - Last 24 Hours (Table) 02/07/24 07:54 Blood Culture - Preliminary Blood
[2024-02-10] MEDS: HYDROmorphone 1 MG/ML 1 ML SYRINGE IVP STA (14:44)
[2024-02-10 14:59] LABS: INR 1.3 (<1.2); Prothrombin Time 13.2 sec (10.0-12.5)
[2024-02-10 15:15] LABS: Albumin 2.5 g/dL (3.5-5.0); Bilirubin, Delta 0.3 mg/dL (0.0-0.2); Bilirubin,Unconjugated 0.5 mg/dL (0.0-1.1); Total Bilirubin 0.8 mg/dL (0.2-1.3); Total Protein 4.5 g/dL (6.3-8.2)
--- NOTE | 2024-02-10 15:29 | P.PN ---
Subjective HISTORY OF PRESENT ILLNESS: This is an 83-year-old male patient of Dr. Maddy Obrien with past medical history of permanent pacemaker implantation for bradycardia which was complicated by hematoma at the pacer site and subsequently underwent drainage of the hematoma. Also history of coronary artery disease with previous stent to the RCA in 2009, hypertension, dyslipidemia, diabetes mellitus insulin requiring, COPD, gastroesophageal reflux disease, benign prostatic hypertrophy.. We have been asked to evaluate the patient for infected pacemaker. Patient had a [employer] dual-chamber [place] [facility] [place] for high-grade AV block with symptoms of dizziness and lightheadedness. He subsequently had hematoma I&D with Dr. Dominguez. Patient was last seen in the office on 01/25/2024 and at that time there were no fluid accumulation and pacemaker has been checked and functioning normally. Patient apparently was found in the bathroom by his family and went to [facility] and subsequently transferred to [facility]. He had a chest x-ray done at [facility] that showed a left lobe pneumonia. Patient presented with altered mental status fall and sepsis. Time on the floor was approximately 23 hours. Temperature max was 103. Patient was started on Zosyn and vancomycin before transfer. Patient is unable to recall what happened at home. He currently denies having any chest pain no shortness of breath, no palpitations, no lightheadedness or dizziness, no previous syncopal episodes, no blood in his stool or urine, no history of stroke or seizure. Blood pressure 137/89, heart rate 87, pulse ox 98% on room air, temperature max 100.2. Patient has been seen by infectious disease and antibiotic switched to cefepime and vancomycin. Patient has also been seen by Dr. Dominguez. A pacemaker wound culture has been obtained. EKG: Sinus rhythm with first-degree block, IVCD Chest x-ray: Mild left pleural effusion Laboratory studies: WBC 10.7, hemoglobin 10.6, platelet count 156. Sodium 138, potassium 3.4, chloride 108, CO2 19 BUN 24 creatinine 0.98. CK 4386 Home cardiac medications: Aspirin 81 mg daily, Lasix 40 mg daily, losartan 50 mg daily, Lopressor 25 mg twice daily, pravastatin 40 mg daily. Lexiscan Cardiolite stress test performed in the office on 05/30/2022 revealed negative stress test by EKG criteria. Abnormal nuclear scan showing fixed apical thinning. Mild LV systolic dysfunction without ischemia. Echocardiogram performed 11/29/2015 revealed EF of 60 to 65%, mild tricuspid regurgitation, mild pulmonary hypertension, moderate concentric left ventricular hypertrophy, mild aortic valve sclerosis without stenosis, mild mitral annular calcification. Cardiac catheterization history in 2009 stent to the RCA 02/04 Patient is seen today in follow-up. His only complaint today is back discomfort. He denies chest pain, shortness of breath, lightheadedness or dizziness. Blood pressure 155/72, heart rate is in the 80s, pulse ox 90% on 2 L nasal cannula. Repeat blood work reveals WBC 8.8, hemoglobin 10.2, platelet count 136. Creatinine 0.54. Patient is currently on IV antibiotics in the form of cefepime and vancomycin. Wound culture and wound culture are both revealing presumptive MRSA and Pseudomonas aeruginosa. Echocardiogram reveals EF of 45%, enlarged right ventricle, biatrial enlargement, lead in the right atrium. 02/07 patient seen and examined. Patient denies any chest pain or pressure.still remains somewhat confused. Patient with active pus around his pacemaker incision which appears to track down to the pacemaker generator. 02/09/2024 Patient examined this morning at the bedside. Patient is somewhat lethargic at the time of examination. There is no family present. Patient currently denies chest pain or pressure. He denies shortness of breath. According to the patient's nurse, patient is going hospice later this afternoon. 02/10/2024 Patient is status post pacemaker explantation. Patient did have bleeding at the surgical site and required pressure dressing yesterday. Vascular surgery to see patient today. Patient was examined this morning by Dr. Tobias. Patient without complaints of chest pain or shortness of breath. PHYSICAL EXAM: VITAL SIGNS: Reviewed. GENERAL: Well-developed in no acute distress. NECK: Supple. No JVD or thyromegaly LUNGS: Respirations even and unlabored. Lungs essentially clear to auscultation bilaterally. HEART: Regular rate and rhythm. S1 and S2 heard. EXTREMITIES: Normal range of motion. No clubbing or cyanosis. Peripheral pulses intact. No lower extremity edema ASSESSMENT: Metabolic encephalopathy resolved Rhabdomyolysis Sepsis secondary to chest wall abscess at pacemaker site Recent pacemaker implantation and hematoma status post I&D, status post pacema ker explantation Coronary artery disease with previous stent to the RCA in 2009 Hypertension Hyperlipidemia Diabetes mellitus type 2 insulin requiring COPD Remote history of tobacco use History of prostate cancer MRSA bacteremia PLAN: Continue current cardiac medications Vascular surgery to see patient today regarding bleeding at pacemaker explantation site Patient is being discharged to [facility] home today Patient is apparently being signed onto hospice later on today Nurse practitioner note has been reviewed by physician. Signing provider agrees with the documented findings, assessment, and plan of care documented by BANANA LOADER as a scribe. Objective - Vital Signs Vital signs: Vital Signs Temp 97.6 F 02/10/24 08:00 Pulse 92 02/10/24 11:50 Resp 20 02/10/24 08:00 BP 113/56 02/10/24 08:00 Pulse Ox 100 02/10/24 08:00 FiO2 Intake & Output 02/09/24 02/10/24 02/10/24 18:59 06:59 18:59 Intake Total 50 Output Total 1425 600 Balance -1375 -600 Weight 91.5 kg Intake: IV 50 Output: Urine 1425 600 Other: Voiding Method Indwelling Catheter Indwelling Catheter Indwelling Catheter - Labs CBC & Chem 7: 02/10/24 05:58 02/09/24 09:07 Labs: Abnormal Lab Results - Last 24 Hours (Table) 02/09/24 02/09/24 02/09/24 Range/Units 16:55 20:34 22:21 RBC 2.96 L (4.30-5.90) m/uL Hgb 7.7 L (13.0-17.5) gm/dL Hct 25.0 L (39.0-53.0) % MCHC 30.7 L (31.0-37.0) g/dL RDW 17.1 H (11.5-15.5) % POC Glucose (mg/dL) 141 H 160 H (70-110) mg/dL Crossmatch 02/09/24 02/10/24 02/10/24 Range/Units 22:48 05:58 06:58 RBC 2.63 L (4.30-5.90) m/uL Hgb 7.0 L (13.0-17.5) gm/dL Hct 22.6 L (39.0-53.0) % MCHC (31.0-37.0) g/dL RDW 17.4 H (11.5-15.5) % POC Glucose (mg/dL) 156 H 163 H (70-110) mg/dL Crossmatch 02/10/24 02/10/24 Range/Units 10:00 11:46 RBC (4.30-5.90) m/uL Hgb (13.0-17.5) gm/dL Hct (39.0-53.0) % MCHC (31.0-37.0) g/dL RDW (11.5-15.5) % POC Glucose (mg/dL) 164 H (70-110) mg/dL Crossmatch See Detail Microbiology - Last 24 Hours (Table) 02/07/24 07:54 Blood Culture - Preliminary Blood
--- NOTE | 2024-02-10 16:16 | XR ---
EXAMINATION TYPE: XR chest 1V portable DATE OF EXAM: 02/10/2024 HISTORY: Shortness of breath. COMPARISON: 01/29/2024. TECHNIQUE: Single view of the chest is submitted. FINDINGS: Demonstrated are scattered senescent parenchymal change. Large left epicardial fat pad versus pleura l effusion. There is no evidence for focal infiltrate. The heart is enlarged for size. Hilar and mediastinal structures are within normal limits. Degenerative changes are seen of the dorsal spine. IMPRESSION: Low lung volumes, 1. Chronic changes without evidence for acute pulmonary disease. 2. Left pleural effusion versus large epicardial fat pad. [facility], , 02/10/2024 4:14 PM
[2024-02-10 16:17] VITALS: PULSE 108
[2024-02-10 16:54] LABS: Glucose,Whole Blood 183 mg/dL (70-110)
[2024-02-10] MEDS ORDERED: HYDROmorphone 1 MG/ML 1 ML SYRINGE IVP PRN (17:09)
[2024-02-10] MEDS: METOPROLOL TARTRATE 25 MG TAB PO SCH (17:14)
[2024-02-10] MEDS: SCOPOLAMINE 1 MG/72 HR PATCH TRANSDERM SCH (18:03)
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
[2024-02-12] MEDS ORDERED: VANCOMYCIN TROUGH DUE 1 EACH MISC MISCELLANE ONE (05:00)
== END 2024-02-10 19:31 | disposition still patient (30) | DRG 856 ==
LOC: EC 23:20 → 3SCARD 23:56
PROVIDERS: ADMIT Hospitalist; ATTEND Hospitalist
PROC: 0JPT0PZ Removal of Cardiac Rhythm Related Device from Trunk Subcutaneous Tissue and Fascia, Open Approach (ICD-10-PCS; principal; 2024-02-09 07:30)
PROC: 02PA3MZ Removal of Cardiac Lead from Heart, Percutaneous Approach (ICD-10-PCS; 2024-02-09 07:30)
DX: T81.49XA Infection following a procedure, other surgical site, initial encounter (principal); A41.9 Sepsis, unspecified organism; G93.41 Metabolic encephalopathy; J15.69 Pneumonia due to other Gram-negative bacteria; M62.82 Rhabdomyolysis; J44.0 Chronic obstructive pulmonary disease with (acute) lower respiratory infection; K56.7 Ileus, unspecified; M48.54XA Collapsed vertebra, not elsewhere classified, thoracic region, initial encounter for fracture; L02.213 Cutaneous abscess of chest wall; Y84.8 Other medical procedures as the cause of abnormal reaction of the patient, or of later complication, without mention of misadventure at the time of the procedure; I10 Essential (primary) hypertension; I25.10 Atherosclerotic heart disease of native coronary artery without angina pectoris; Z95.5 Presence of coronary angioplasty implant and graft; E11.9 Type 2 diabetes mellitus without complications; Z85.46 Personal history of malignant neoplasm of prostate; K21.9 Gastro-esophageal reflux disease without esophagitis; Z66 Do not resuscitate; N40.0 Benign prostatic hyperplasia without lower urinary tract symptoms; E87.6 Hypokalemia; E78.00 Pure hypercholesterolemia, unspecified; R41.89 Other symptoms and signs involving cognitive functions and awareness; D50.9 Iron deficiency anemia, unspecified
CPT/HCPCS: 33233; 33235; 71045; 72100; 72131; 74019; 80048; 80053; 80076; 80202; 82550; 82565; 82607; 82728; 82746; 83036; 83540; 83550; 83735; 85025; 85027; 85610; 86850; 86900; 86901; 86920; 87040; 87070; 87077; 87186; 87205; 93005; 93306; 94640; 94760; 96365; 96366; 96367; 96372; 99291

== ENCOUNTER 2024-02-10 19:29 | Inpatient (IN) | payer MEDICARE, OTHER ==
[2024-02-10] MEDS ORDERED: HALOPERIDOL LACTATE 5 MG/ML 1 ML VIAL IM PRN (19:44)
[2024-02-10] MEDS ORDERED: LORazepam 2 MG/ML INJ IV PRN (19:44)
[2024-02-10] MEDS ORDERED: ACETAMINOPHEN SUPPOSITORY 650 MG SUPP RECTAL PRN (19:44)
[2024-02-10] MEDS ORDERED: ONDANSETRON 4 MG/2 ML VIAL IVP PRN (19:44)
[2024-02-10] MEDS ORDERED: haloperidoL 1 MG TAB PO PRN (19:44)
[2024-02-10] MEDS ORDERED: ACETAMINOPHEN IV (For NPO) 1,000 MG in EMPTY BAG 1 BAG IVPB PRN (19:54)
[2024-02-10] MEDS: SCOPOLAMINE 1 MG/72 HR PATCH TRANSDERM SCH (19:56)
[2024-02-10] MEDS: MORPHINE SULFATE 100 MG in SODIUM CHLORIDE 0.9% 90 ML IV SCH (20:15)
[2024-02-10] MEDS: ATROPINE OPHTH SOLN 1% 5ML BTL SUBLINGUAL PRN (23:45)
[2024-02-11 06:38] VITALS: PULSE 107
[2024-02-11 10:27] VITALS: RESP 12
--- NOTE | 2024-02-11 17:14 | P.HPIM ---
History of Present Illness H&P Date: 02/11/24 Chief Complaint: Comfort care Patient made GIP comfort care for respiratory distress. Patient on comfort care measures. Getting morphine drip. Scopolamine patch On examination: Laying in bed. Not breathing. Nasal cannula General: Somnolent Respiratory: Effort increased, diminished breath sounds Cardiovascular: First second sound normal Abdomen soft Assessment plan: -Comfort measures. -Pressure dressing at the pacemaker bleeding site -Acute hypoxic respiratory failure from possible hemothorax on oxygen -Anxiety agitation end-of-life Care was discussed with patient's 2 sons at bedside. Questions answered. They are thankful for the end-of-life care. Continue comfort measures. Past Medical History Past Medical History: Coronary Artery Disease (CAD), Cancer, Chest Pain / Angina, COPD, Diabetes Mellitus, GERD/Reflux, Hyperlipidemia, Hypertension, Pneumonia, Prostate Disorder Additional Past Medical History / Comment(s): kidney stone in past,constipation, arthritis in back, anemia,prostate cancer, hands shake at times, head inj/brain bleed 2015-no sx was needed.[place] History of Any Multi-Drug Resistant Organisms: MRSA Date of last positivie culture/infection: 02/02/2024 MDRO Source:: blood/left chest pacemaker site Past Surgical History: Appendectomy, Heart Catheterization With Stent, Pacemaker Additional Past Surgical History / Comment(s): orif rt ankle(metal inpalce), era cataracts, 2 cardiac stents to prox manager title, colon resection, stent let eye for glacoma Past Anesthesia/Blood Transfusion Reactions: Previous Problems w/ Anesthesia Additional Past Anesthesia/Blood Transfusion Reaction / Comment(s): altered mental Date of Last Stent Placement:: unk Type of Cardiac Device: Permanent Pacemaker Device Placement Date:: january 07, 2024 Removed 02/09/2024 Past Psychological History: Depression Additional Psychological History / Comment(s): lost his of 50 years in oct(she from colon cancer). Smoking Status: Former smoker Past Alcohol Use History: None Reported Additional Past Alcohol Use History / Comment(s): quit smoking -2008 Past Drug Use History: None Reported - Past Family History Father Family Medical History: Cancer Mother Family Medical History: Myocardial Infarction ([place]) Medications and Allergies Home Medications Medication Instructions Recorded Confirmed Type Tamsulosin HCl [Flomax] 0.4 mg PO DAILY 11/28/15 02/10/24 History Metoprolol Tartrate [Lopressor] 25 mg PO BID 01/02/21 02/10/24 History Oxybutynin Chloride [oxyBUTYnin 10 mg PO DAILY 01/02/21 02/10/24 History chloride ER] Pantoprazole Sodium [Protonix] 40 mg PO BID 60 Days tab 01/04/21 02/10/24 Rx Acetaminophen Tab [Tylenol] 500 mg PO Q6H tab 02/10/24 02/10/24 Rx Ipratropium-Albuterol Nebulize 3 ml INHALATION RT-QID each 02/10/24 02/10/24 Rx [Duoneb 0.5 mg-3 mg/3 ml Soln] Lidocaine 4% Patch 1 patch TOPICAL DAILY #3 patch 02/10/24 02/10/24 Rx Allergies Allergy/AdvReac Type Severity Reaction Status Date / Time No Known Allergies Allergy Verified 02/03/24 08:28 Physical Exam Vitals: Vital Signs Pulse Resp 02/11/24 08:00 107 H 12 02/11/24 06:38 107 H 28 H Intake and Output 02/10/24 02/11/24 02/11/24 22:59 06:59 14:59 Intake Total 541.817 18.387 Output Total 450 Balance 91.817 18.387 Intake: Intake, IV Titration 1.817 18.387 Amount Morphine Sulfate 100 mg 1.817 18.387 In Sodium Chloride 0.9% 90 ml @ 1 MG/HR 1 mls/hr IV .Q24H [facility] Rx#: [id number] Oral 540 Output: Urine 450 Other: Voiding Method Indwelling Catheter Indwelling Catheter Indwelling Catheter Weight 91.5 kg
--- NOTE | 2024-02-12 10:01 | P.DS ---
Providers Date of admission: 02/10/24 19:40 Expected date of discharge: 02/11/24 () Attending physician: Aramis Andrea Primary care physician: Rolando Zafar [facility] Course: Patient is admitted for comfort measures/GIP. Family was present Patient Cause of : Coronary artery disease Plan - Discharge Summary New Discharge Prescriptions: No Action Tamsulosin HCl [Flomax] 0.4 mg PO DAILY Oxybutynin Chloride [oxyBUTYnin chloride ER] 10 mg PO DAILY Lidocaine 4% Patch 1 patch TOPICAL DAILY #3 patch Acetaminophen Tab [Tylenol] 500 mg PO Q6H tab Metoprolol Tartrate [Lopressor] 25 mg PO BID Pantoprazole Sodium [Protonix] 40 mg PO BID 60 Days tab Ipratropium-Albuterol Nebulize [Duoneb 0.5 mg-3 mg/3 ml Soln] 3 ml INHALATION RT-QID each Discharge Medication List Tamsulosin HCl [Flomax] 0.4 mg PO DAILY 11/28/15 [History] Metoprolol Tartrate [Lopressor] 25 mg PO BID 01/02/21 [History] Oxybutynin Chloride [oxyBUTYnin chloride ER] 10 mg PO DAILY 01/02/21 [History] Pantoprazole Sodium [Protonix] 40 mg PO BID 60 Days tab 01/04/21 [Rx] Acetaminophen Tab [Tylenol] 500 mg PO Q6H tab 02/10/24 [Rx] Ipratropium-Albuterol Nebulize [Duoneb 0.5 mg-3 mg/3 ml Soln] 3 ml INHALATION RT-QID each 02/10/24 [Rx] Lidocaine 4% Patch 1 patch TOPICAL DAILY #3 patch 02/10/24 [Rx] Discharge Disposition: - Preliminary Cause of Preliminary Cause of : Coronary artery disease
== END 2024-02-11 19:00 | disposition expired | DRG 951 ==
LOC: 3SCARD 19:40
PROVIDERS: ADMIT Hospitalist; ATTEND Hospitalist
DX: Z51.5 Encounter for palliative care (principal); J96.01 Acute respiratory failure with hypoxia; F41.9 Anxiety disorder, unspecified; I25.10 Atherosclerotic heart disease of native coronary artery without angina pectoris; J44.9 Chronic obstructive pulmonary disease, unspecified; E11.9 Type 2 diabetes mellitus without complications; K21.9 Gastro-esophageal reflux disease without esophagitis; Z66 Do not resuscitate; E78.5 Hyperlipidemia, unspecified; I10 Essential (primary) hypertension; Z95.5 Presence of coronary angioplasty implant and graft; Z95.0 Presence of cardiac pacemaker; Z87.891 Personal history of nicotine dependence; Z79.899 Other long term (current) drug therapy; Z85.46 Personal history of malignant neoplasm of prostate; Z86.73 Personal history of transient ischemic attack (TIA), and cerebral infarction without residual deficits